=== PATIENT | male | born 1940 | race African-American/Black ===

== ENCOUNTER 2020-03-21 14:12 | Inpatient (IN) | payer OTHER ==
[2020-03-21] MEDS ORDERED: SODIUM CHLORIDE 1,000 ML IV SCH (14:45)
[2020-03-21 15:04] LABS: BASO % 0.5 % (0-2.0); EOS % 0.6 % (0-4.5); HEMATOCRIT 44.1 % (35.4-49); HEMOGLOBIN 14.8 GM/dL (11.7-16.9); MCH 30.8 pg (25.7-33.7); MCHC 33.5 g/dl (32.0-35.9); MEAN CELL VOLUME 91.9 fl (80-96); MEAN PLT VOLUME 8.7 fl (7.5-11.1); MONO % 5.2 % (3.8-10.2); NEUT % 79.7 % (42.8-82.8); PLATELET COUNT 384 K/MM3 (134-434); RDW 15.3 % (11.9-15.9)
[2020-03-21 15:11] LABS: INR 1.16 (0.83-1.09)
[2020-03-21 15:13] LABS: ACTIVATED PTT 30.4 SECONDS (25.2-36.5)
[2020-03-21 15:22] LABS: POTASSIUM 4.6 mmol/L (3.5-5.1)
[2020-03-21] MEDS ORDERED: levETIRAcetam 500 MG/5 ML INJECTION VIAL IVPB ONE ×2 (15:28→15:36)
[2020-03-21 15:29] LABS: CALCIUM 9.7 mg/dL (8.5-10.1); CHOLESTEROL 146 mg/dL (50-200); CREATININE 3.2 mg/dL (0.55-1.3)
[2020-03-21 15:30] LABS: ALBUMIN 3.4 g/dl (3.4-5.0); TRIGLYCERIDES 112 mg/dL (0-150)
[2020-03-21 15:31] LABS: BILIRUBIN,TOTAL 0.8 mg/dL (0.2-1); LDL CHOLESTEROL (ONLY SJRH) 71 mg/dL (5-100); TOT PROT 8.3 g/dl (6.4-8.2)
[2020-03-21 15:33] LABS: HDL CHOLESTEROL 56 mg/dL (40-60)
[2020-03-21 15:35] VITALS: BMI 32.3
[2020-03-21 16:10] LABS: PHOSPHOROUS 5.4 mg/dL (2.5-4.9)
[2020-03-21 16:16] LABS: BLOOD UREA NITROGEN 90.6 mg/dL (7-18)
[2020-03-21 17:27] LABS: URINE APPEARANCE Clear; URINE BILIRUBIN 1+ (NEGATIVE); URINE COLOR Yellow; URINE GLUCOSE (UA) Negative (NEGATIVE); URINE KETONE Negative (NEGATIVE); URINE LEUK ESTERASE Negative (NEGATIVE); URINE NITRITE Negative (NEGATIVE); URINE PROTEIN Trace (NEGATIVE)
[2020-03-21] MEDS: SODIUM CHLORIDE 1,000 ML IV SCH (18:00)
[2020-03-21] MEDS: HEPARIN NA (PORCINE) 5,000 UNITS/ML 1ML VIAL SQ SCH (23:38)
[2020-03-21] MEDS: levETIRAcetam 500 MG/5 ML INJECTION VIAL IVPB SCH (23:38)
[2020-03-21] MEDS: LABETALOL HCL 100 MG TABLET (FP) PO SCH (23:39)
[2020-03-21] MEDS: ATORVASTATIN CA 80 MG TABLET (FP) PO SCH (23:39)
[2020-03-22 08:16] LABS: BASO % 0.6 % (0-2.0); EOS % 1.1 % (0-4.5); HEMATOCRIT 40.7 % (35.4-49); HEMOGLOBIN 13.2 GM/dL (11.7-16.9); LYMPH % 17.3 % (8-40); MCH 30.1 pg (25.7-33.7); MCHC 32.5 g/dl (32.0-35.9); MEAN CELL VOLUME 92.6 fl (80-96); MEAN PLT VOLUME 8.9 fl (7.5-11.1); PLATELET COUNT 352 K/MM3 (134-434); RBC 4.39 M/mm3 (4.00-5.60); RDW 15.2 % (11.9-15.9); WHITE BLOOD COUNT 7.5 K/mm3 (4.0-10.0)
[2020-03-22 08:34] LABS: POTASSIUM 4.5 mmol/L (3.5-5.1)
[2020-03-22 08:42] LABS: CALCIUM 8.9 mg/dL (8.5-10.1)
[2020-03-22 08:43] LABS: BLOOD UREA NITROGEN 76.5 mg/dL (7-18); MAGNESIUM 2.9 mg/dL (1.8-2.4)
[2020-03-22 08:46] LABS: BILIRUBIN,TOTAL 0.5 mg/dL (0.2-1); CREATININE 2.6 mg/dL (0.55-1.3); PHOSPHOROUS 4.5 mg/dL (2.5-4.9); TOT PROT 7.2 g/dl (6.4-8.2)
[2020-03-22] MEDS: HEPARIN NA (PORCINE) 5,000 UNITS/ML 1ML VIAL SQ SCH ×2 (10:11→22:24)
[2020-03-22] MEDS: levETIRAcetam 500 MG/5 ML INJECTION VIAL IVPB SCH ×2 (10:11→22:24)
[2020-03-22] MEDS: TAMSULOSIN HCL 0.4 MG CAP PO SCH (10:12)
[2020-03-22] MEDS: amLODIPine BESYLATE 10 MG TABLET (FP) PO SCH (10:12)
[2020-03-22] MEDS: LABETALOL HCL 100 MG TABLET (FP) PO SCH ×2 (10:12→22:10)
[2020-03-22] MEDS: CLOPIDOGREL BISULFATE 75 MG TABLET (FP) PO SCH (10:12)
[2020-03-22] MEDS: SODIUM CHLORIDE 1,000 ML IV SCH ×2 (14:33→22:10)
[2020-03-22] MEDS: ATORVASTATIN CA 80 MG TABLET (FP) PO SCH (22:10)
[2020-03-23] MEDS: SODIUM CHLORIDE 1,000 ML IV SCH (04:09)
[2020-03-23] MEDS: TAMSULOSIN HCL 0.4 MG CAP PO SCH (08:30)
[2020-03-23] MEDS: amLODIPine BESYLATE 10 MG TABLET (FP) PO SCH (09:38)
[2020-03-23] MEDS: CLOPIDOGREL BISULFATE 75 MG TABLET (FP) PO SCH (09:38)
[2020-03-23] MEDS: LABETALOL HCL 100 MG TABLET (FP) PO SCH ×2 (09:38→21:31)
[2020-03-23] MEDS: HEPARIN NA (PORCINE) 5,000 UNITS/ML 1ML VIAL SQ SCH ×2 (09:49→21:39)
[2020-03-23] MEDS: levETIRAcetam 500 MG/5 ML INJECTION VIAL IVPB SCH ×2 (09:49→21:39)
[2020-03-23 11:32] LABS: BASO % 0.5 % (0-2.0); EOS % 0.8 % (0-4.5); HEMATOCRIT 40.8 % (35.4-49); HEMOGLOBIN 13.2 GM/dL (11.7-16.9); LYMPH % 11.2 % (8-40); MCH 29.7 pg (25.7-33.7); MCHC 32.3 g/dl (32.0-35.9); MEAN CELL VOLUME 92.1 fl (80-96); MONO % 6.5 % (3.8-10.2); PLATELET COUNT 347 K/MM3 (134-434); RBC 4.43 M/mm3 (4.00-5.60); RDW 15.5 % (11.9-15.9); WHITE BLOOD COUNT 8.8 K/mm3 (4.0-10.0)
[2020-03-23 11:48] LABS: POTASSIUM 4.2 mmol/L (3.5-5.1)
[2020-03-23 11:49] LABS: ALBUMIN 2.9 g/dl (3.4-5.0); BLOOD UREA NITROGEN 53.7 mg/dL (7-18); CALCIUM 8.6 mg/dL (8.5-10.1)
[2020-03-23 11:53] LABS: CREATININE 1.9 mg/dL (0.55-1.3)
[2020-03-23 11:54] LABS: BILIRUBIN,TOTAL 0.6 mg/dL (0.2-1); TOT PROT 6.8 g/dl (6.4-8.2)
[2020-03-23] MEDS: DEXTROSE 5%-1/3 NS - 500 ML IV SCH (14:30)
[2020-03-23] MEDS: ATORVASTATIN CA 80 MG TABLET (FP) PO SCH (21:31)
[2020-03-24] MEDS: TAMSULOSIN HCL 0.4 MG CAP PO SCH ×2 (07:54→07:57)
[2020-03-24 07:57] LABS: BASO % 1.1 % (0-2.0); EOS % 1.2 % (0-4.5); HEMATOCRIT 38.9 % (35.4-49); HEMOGLOBIN 12.5 GM/dL (11.7-16.9); LYMPH % 14.7 % (8-40); MCH 29.8 pg (25.7-33.7); MCHC 32.2 g/dl (32.0-35.9); MEAN CELL VOLUME 92.4 fl (80-96); MEAN PLT VOLUME 9.1 fl (7.5-11.1); PLATELET COUNT 321 K/MM3 (134-434); RBC 4.21 M/mm3 (4.00-5.60); RDW 15.5 % (11.9-15.9); WHITE BLOOD COUNT 9.2 K/mm3 (4.0-10.0)
[2020-03-24 08:08] LABS: POTASSIUM 3.8 mmol/L (3.5-5.1)
[2020-03-24 08:13] LABS: ALBUMIN 2.9 g/dl (3.4-5.0); BLOOD UREA NITROGEN 36.9 mg/dL (7-18); CALCIUM 8.6 mg/dL (8.5-10.1)
[2020-03-24 08:17] LABS: CREATININE 1.8 mg/dL (0.55-1.3)
[2020-03-24 08:18] LABS: BILIRUBIN,TOTAL 0.8 mg/dL (0.2-1); TOT PROT 7.2 g/dl (6.4-8.2)
[2020-03-24] MEDS: HEPARIN NA (PORCINE) 5,000 UNITS/ML 1ML VIAL SQ SCH ×2 (09:11→22:51)
[2020-03-24] MEDS: levETIRAcetam 500 MG/5 ML INJECTION VIAL IVPB SCH ×2 (09:12→22:51)
[2020-03-24] MEDS: amLODIPine BESYLATE 10 MG TABLET (FP) PO SCH ×2 (09:13→14:38)
[2020-03-24] MEDS: LABETALOL HCL 100 MG TABLET (FP) PO SCH ×3 (09:13→22:47)
[2020-03-24] MEDS: CLOPIDOGREL BISULFATE 75 MG TABLET (FP) PO SCH ×2 (09:13→14:38)
[2020-03-24] MEDS ORDERED: PT OWN MED DRAWER 7, Y5N ONE (10:08)
[2020-03-24] MEDS: DEXTROSE 5%-1/3 NS - 500 ML IV SCH (14:36)
[2020-03-24] MEDS ORDERED: ACETAMINOPHEN 1000 MG/100 ML VIAL (NON FORMULARY) IVPB PRN (22:26)
[2020-03-24] MEDS ORDERED: VANCOMYCIN HCL 1,250 MG in DEXTROSE 5%-WATER - 250 ML IVPB ONE (22:45)
[2020-03-24] MEDS: ATORVASTATIN CA 80 MG TABLET (FP) PO SCH (22:46)
[2020-03-24] MEDS ORDERED: DEXTROSE 5%-WATER 100 ML IVPB ONE (22:48)
[2020-03-24] MEDS ORDERED: PIPERACILLIN/TAZOBACTAM 4.5 GM VIAL IVPB ONE (22:48)
[2020-03-25] MEDS: PIPERACILLIN/TAZOB 4.5 GM 4.5 GM in DEXTROSE 5%-WATER 100 ML IVPB SCH ×2 (01:06→06:41)
[2020-03-25 01:53] LABS: BASO % 0.3 % (0-2.0); EOS % 0.6 % (0-4.5); HEMATOCRIT 40.9 % (35.4-49); HEMOGLOBIN 13.3 GM/dL (11.7-16.9); LYMPH % 17.8 % (8-40); MCH 29.7 pg (25.7-33.7); MCHC 32.4 g/dl (32.0-35.9); MEAN CELL VOLUME 91.5 fl (80-96); MONO % 7.5 % (3.8-10.2); NEUT % 73.8 % (42.8-82.8); PLATELET COUNT 305 K/MM3 (134-434); RBC 4.47 M/mm3 (4.00-5.60); RDW 15.3 % (11.9-15.9); WHITE BLOOD COUNT 8.3 K/mm3 (4.0-10.0)
[2020-03-25 02:28] LABS: EPI CELLS 11 /uL (0-25.1); HYALINE CASTS 29 /uL (0-3.1); PH,URINE 5.5 (5.0-8.0); URINE APPEARANCE TURBID; URINE BACTERIA 274 /uL (0-1359); URINE BILIRUBIN NEGATIVE (NEGATIVE); URINE COLOR YELLOW; URINE GLUCOSE (UA) NEGATIVE (NEGATIVE); URINE KETONE NEGATIVE (NEGATIVE); URINE LEUK ESTERASE 1+ (NEGATIVE); URINE NITRITE NEGATIVE (NEGATIVE); URINE PROTEIN 3+ (NEGATIVE); URINE RBC 16 /uL (0-23.9); URINE WBC 389 /uL (0-25.8)
[2020-03-25] MEDS ORDERED: SODIUM CHLORIDE 0.9% 500 ML INFUS.BAG IV ONE (03:29)
[2020-03-25] MEDS ORDERED: PIPERACILLIN/TAZOBACTAM 4.5 GM VIAL IVPB ONE (06:28)
[2020-03-25] MEDS ORDERED: DEXTROSE 5%-WATER 100 ML IVPB ONE (06:29)
[2020-03-25 08:33] LABS: BASO % 0.5 % (0-2.0); EOS % 0.6 % (0-4.5); HEMATOCRIT 36.7 % (35.4-49); HEMOGLOBIN 12.2 GM/dL (11.7-16.9); LYMPH % 20.2 % (8-40); MCH 30.2 pg (25.7-33.7); MCHC 33.1 g/dl (32.0-35.9); MEAN CELL VOLUME 91.1 fl (80-96); MEAN PLT VOLUME 9.3 fl (7.5-11.1); MONO % 9.6 % (3.8-10.2); NEUT % 69.1 % (42.8-82.8); PLATELET COUNT 264 K/MM3 (134-434); RBC 4.03 M/mm3 (4.00-5.60); RDW 15.6 % (11.9-15.9)
[2020-03-25 08:49] LABS: POTASSIUM 3.8 mmol/L (3.5-5.1)
[2020-03-25 08:59] LABS: CALCIUM 7.9 mg/dL (8.5-10.1)
[2020-03-25 09:00] LABS: ALBUMIN 2.5 g/dl (3.4-5.0); BLOOD UREA NITROGEN 29.5 mg/dL (7-18)
[2020-03-25 09:03] LABS: CREATININE 2.2 mg/dL (0.55-1.3)
[2020-03-25 09:04] LABS: BILIRUBIN,TOTAL 0.9 mg/dL (0.2-1)
[2020-03-25 09:07] LABS: TOT PROT 6.2 g/dl (6.4-8.2)
[2020-03-25] MEDS: HEPARIN NA (PORCINE) 5,000 UNITS/ML 1ML VIAL SQ SCH ×2 (10:09→22:23)
[2020-03-25] MEDS: levETIRAcetam 500 MG/5 ML INJECTION VIAL IVPB SCH ×2 (10:09→22:23)
[2020-03-25] MEDS: amLODIPine BESYLATE 10 MG TABLET (FP) PO SCH (10:48)
[2020-03-25] MEDS: LABETALOL HCL 100 MG TABLET (FP) PO SCH ×2 (10:48→22:17)
[2020-03-25] MEDS: TAMSULOSIN HCL 0.4 MG CAP PO SCH (10:48)
[2020-03-25] MEDS: CLOPIDOGREL BISULFATE 75 MG TABLET (FP) PO SCH (10:49)
[2020-03-25] MEDS: DEXTROSE 5%-1/3 NS - 500 ML IV SCH (13:48)
[2020-03-25] MEDS ORDERED: PIPERACILLIN/TAZOBACTAM 3.375 GM VIAL IVPB ONE (17:42)
[2020-03-25] MEDS ORDERED: DEXTROSE 5%-WATER - 50 ML IVPB ONE (17:42)
[2020-03-25] MEDS: PIPERACILLIN/TAZOB 3.375 GM 3.375 GM in DEXTROSE 5%-WATER - 50 ML IVPB SCH (17:49)
[2020-03-25] MEDS: ATORVASTATIN CA 80 MG TABLET (FP) PO SCH (22:17)
[2020-03-25] MEDS ORDERED: VANCOMYCIN/WATER 1,250 MG/250 ML BAG IVPB SCH (22:30)
[2020-03-25] MEDS: VALPROATE SODIUM 500 MG/5 ML VIAL IVPB SCH (22:39)
[2020-03-26] MEDS ORDERED: PIPERACILLIN/TAZOBACTAM 3.375 GM VIAL IVPB ONE ×3 (01:41→17:21)
[2020-03-26] MEDS ORDERED: DEXTROSE 5%-WATER - 50 ML IVPB ONE ×3 (01:41→17:21)
[2020-03-26] MEDS: DEXTROSE 5%-1/3 NS - 500 ML IV SCH ×2 (02:13→15:29)
[2020-03-26] MEDS: PIPERACILLIN/TAZOB 3.375 GM 3.375 GM in DEXTROSE 5%-WATER - 50 ML IVPB SCH ×3 (02:14→17:25)
[2020-03-26] MEDS: PIPERACILLIN/TAZOB 4.5 GM 4.5 GM in DEXTROSE 5%-WATER 100 ML IVPB SCH (07:22)
[2020-03-26 08:30] LABS: BASO % 0.4 % (0-2.0); EOS % 1.4 % (0-4.5); HEMATOCRIT 37.1 % (35.4-49); HEMOGLOBIN 12.1 GM/dL (11.7-16.9); LYMPH % 19.6 % (8-40); MCH 29.9 pg (25.7-33.7); MCHC 32.6 g/dl (32.0-35.9); MEAN CELL VOLUME 91.8 fl (80-96); MEAN PLT VOLUME 10.2 fl (7.5-11.1); MONO % 7.2 % (3.8-10.2); NEUT % 71.4 % (42.8-82.8); PLATELET COUNT 229 K/MM3 (134-434); RBC 4.04 M/mm3 (4.00-5.60); RDW 15.2 % (11.9-15.9); WHITE BLOOD COUNT 7.6 K/mm3 (4.0-10.0)
[2020-03-26 08:48] LABS: POTASSIUM 3.6 mmol/L (3.5-5.1)
[2020-03-26 08:51] LABS: ALBUMIN 2.3 g/dl (3.4-5.0); BLOOD UREA NITROGEN 21.5 mg/dL (7-18)
[2020-03-26 08:52] LABS: CALCIUM 8.1 mg/dL (8.5-10.1)
[2020-03-26 08:56] LABS: BILIRUBIN,TOTAL 1.1 mg/dL (0.2-1); TOT PROT 6.2 g/dl (6.4-8.2)
[2020-03-26] MEDS ORDERED: PT OWN MED DRAWER 7, Y5N ONE (09:36)
[2020-03-26] MEDS: TAMSULOSIN HCL 0.4 MG CAP PO SCH (09:40)
[2020-03-26] MEDS: levETIRAcetam 500 MG/5 ML INJECTION VIAL IVPB SCH ×2 (09:47→22:50)
[2020-03-26] MEDS: HEPARIN NA (PORCINE) 5,000 UNITS/ML 1ML VIAL SQ SCH ×2 (09:49→22:50)
[2020-03-26] MEDS: VALPROATE SODIUM 500 MG/5 ML VIAL IVPB SCH (09:50)
[2020-03-26] MEDS: amLODIPine BESYLATE 10 MG TABLET (FP) PO SCH (09:53)
[2020-03-26] MEDS: LABETALOL HCL 100 MG TABLET (FP) PO SCH ×2 (09:53→22:50)
[2020-03-26] MEDS: CLOPIDOGREL BISULFATE 75 MG TABLET (FP) PO SCH (09:53)
[2020-03-26] MEDS: ACETAMINOPHEN 325 MG TABLET (FP) PO PRN (11:57)
[2020-03-26] MEDS: ASPIRIN 81 MG CHEWABLE TABLETS PO SCH (17:27)
[2020-03-26] MEDS: ATORVASTATIN CA 80 MG TABLET (FP) PO SCH (22:50)
[2020-03-27] MEDS: VALPROATE SODIUM 500 MG/5 ML VIAL IVPB SCH ×3 (01:07→23:22)
[2020-03-27] MEDS ORDERED: PIPERACILLIN/TAZOBACTAM 3.375 GM VIAL IVPB ONE ×3 (01:08→17:35)
[2020-03-27] MEDS ORDERED: DEXTROSE 5%-WATER - 50 ML IVPB ONE ×3 (01:09→17:35)
[2020-03-27] MEDS: PIPERACILLIN/TAZOB 3.375 GM 3.375 GM in DEXTROSE 5%-WATER - 50 ML IVPB SCH ×3 (01:50→17:37)
[2020-03-27] MEDS: TAMSULOSIN HCL 0.4 MG CAP PO SCH (09:14)
[2020-03-27] MEDS: ASPIRIN 81 MG CHEWABLE TABLETS PO SCH (10:59)
[2020-03-27] MEDS: LABETALOL HCL 100 MG TABLET (FP) PO SCH ×2 (10:59→23:26)
[2020-03-27] MEDS: CLOPIDOGREL BISULFATE 75 MG TABLET (FP) PO SCH (10:59)
[2020-03-27] MEDS: levETIRAcetam 500 MG/5 ML INJECTION VIAL IVPB SCH ×2 (10:59→23:13)
[2020-03-27] MEDS: HEPARIN NA (PORCINE) 5,000 UNITS/ML 1ML VIAL SQ SCH ×2 (11:00→23:13)
[2020-03-27] MEDS: amLODIPine BESYLATE 10 MG TABLET (FP) PO SCH (11:00)
[2020-03-27 13:07] LABS: BASO % 0.3 % (0-2.0); EOS % 2.8 % (0-4.5); HEMATOCRIT 32.4 % (35.4-49); HEMOGLOBIN 10.6 GM/dL (11.7-16.9); LYMPH % 15.4 % (8-40); MCH 29.7 pg (25.7-33.7); MCHC 32.8 g/dl (32.0-35.9); MEAN CELL VOLUME 90.7 fl (80-96); MEAN PLT VOLUME 9.9 fl (7.5-11.1); MONO % 6.5 % (3.8-10.2); PLATELET COUNT 202 K/MM3 (134-434); RBC 3.57 M/mm3 (4.00-5.60); RDW 15.1 % (11.9-15.9); WHITE BLOOD COUNT 7.1 K/mm3 (4.0-10.0)
[2020-03-27 13:22] LABS: POTASSIUM 3.1 mmol/L (3.5-5.1)
[2020-03-27 13:25] LABS: BLOOD UREA NITROGEN 16.3 mg/dL (7-18); CALCIUM 7.7 mg/dL (8.5-10.1)
[2020-03-27 13:28] LABS: CREATININE 1.4 mg/dL (0.55-1.3)
[2020-03-27 13:30] LABS: BILIRUBIN,TOTAL 0.8 mg/dL (0.2-1); TOT PROT 5.7 g/dl (6.4-8.2)
[2020-03-27] MEDS: DEXTROSE 5%-1/3 NS - 500 ML IV SCH (17:37)
[2020-03-27] MEDS: ACETAMINOPHEN 325 MG TABLET (FP) PO PRN (23:26)
[2020-03-27] MEDS: ATORVASTATIN CA 80 MG TABLET (FP) PO SCH (23:26)
[2020-03-28] MEDS ORDERED: PIPERACILLIN/TAZOBACTAM 3.375 GM VIAL IVPB ONE ×3 (00:58→18:03)
[2020-03-28] MEDS ORDERED: DEXTROSE 5%-WATER - 50 ML IVPB ONE ×3 (00:59→18:03)
[2020-03-28] MEDS: PIPERACILLIN/TAZOB 3.375 GM 3.375 GM in DEXTROSE 5%-WATER - 50 ML IVPB SCH ×3 (01:01→18:18)
[2020-03-28 06:56] LABS: BASO % 0.5 % (0-2.0); HEMATOCRIT 31.6 % (35.4-49); HEMOGLOBIN 10.6 GM/dL (11.7-16.9); LYMPH % 18.9 % (8-40); MCHC 33.7 g/dl (32.0-35.9); MEAN CELL VOLUME 89.1 fl (80-96); MEAN PLT VOLUME 9.7 fl (7.5-11.1); MONO % 8.1 % (3.8-10.2); NEUT % 68.5 % (42.8-82.8); PLATELET COUNT 192 K/MM3 (134-434); RBC 3.54 M/mm3 (4.00-5.60); WHITE BLOOD COUNT 5.4 K/mm3 (4.0-10.0)
[2020-03-28 07:17] LABS: ALBUMIN 1.9 g/dl (3.4-5.0); BLOOD UREA NITROGEN 11.9 mg/dL (7-18); CALCIUM 7.5 mg/dL (8.5-10.1)
[2020-03-28 07:19] LABS: CREATININE 1.5 mg/dL (0.55-1.3)
[2020-03-28 07:22] LABS: BILIRUBIN,TOTAL 0.6 mg/dL (0.2-1); TOT PROT 5.4 g/dl (6.4-8.2)
[2020-03-28 07:38] LABS: POTASSIUM 2.9 mmol/L (3.5-5.1)
[2020-03-28] MEDS: levETIRAcetam 500 MG/5 ML INJECTION VIAL IVPB SCH ×2 (09:53→21:13)
[2020-03-28] MEDS: amLODIPine BESYLATE 10 MG TABLET (FP) PO SCH (09:59)
[2020-03-28] MEDS: HEPARIN NA (PORCINE) 5,000 UNITS/ML 1ML VIAL SQ SCH ×2 (09:59→21:51)
[2020-03-28] MEDS: VALPROATE SODIUM 500 MG/5 ML VIAL IVPB SCH ×2 (09:59→21:16)
[2020-03-28] MEDS: LABETALOL HCL 100 MG TABLET (FP) PO SCH ×2 (09:59→21:13)
[2020-03-28] MEDS: CLOPIDOGREL BISULFATE 75 MG TABLET (FP) PO SCH (09:59)
[2020-03-28] MEDS: ASPIRIN 81 MG CHEWABLE TABLETS PO SCH (10:00)
[2020-03-28] MEDS: KCL 10 MEQ IVPB 10 MEQ/100 ML INFUS.BAG IVPB SCH ×3 (10:01→14:04)
[2020-03-28] MEDS: TAMSULOSIN HCL 0.4 MG CAP PO SCH (10:01)
[2020-03-28] MEDS: ACETAMINOPHEN 325 MG TABLET (FP) PO PRN (21:13)
[2020-03-28] MEDS: ATORVASTATIN CA 80 MG TABLET (FP) PO SCH (21:13)
[2020-03-29] MEDS ORDERED: DEXTROSE 5%-WATER - 50 ML IVPB ONE ×3 (01:26→17:02)
[2020-03-29] MEDS ORDERED: PIPERACILLIN/TAZOBACTAM 3.375 GM VIAL IVPB ONE ×3 (01:26→17:02)
[2020-03-29] MEDS: PIPERACILLIN/TAZOB 3.375 GM 3.375 GM in DEXTROSE 5%-WATER - 50 ML IVPB SCH ×3 (01:30→17:05)
[2020-03-29 07:03] LABS: BASO % 0.6 % (0-2.0); EOS % 3.2 % (0-4.5); HEMATOCRIT 30.8 % (35.4-49); HEMOGLOBIN 10.4 GM/dL (11.7-16.9); LYMPH % 17.6 % (8-40); MCHC 33.8 g/dl (32.0-35.9); MEAN CELL VOLUME 88.8 fl (80-96); MONO % 10.3 % (3.8-10.2); NEUT % 68.3 % (42.8-82.8); PLATELET COUNT 187 K/MM3 (134-434); RBC 3.47 M/mm3 (4.00-5.60); RDW 15.3 % (11.9-15.9); WHITE BLOOD COUNT 5.4 K/mm3 (4.0-10.0)
[2020-03-29 07:15] LABS: POTASSIUM 3.2 mmol/L (3.5-5.1)
[2020-03-29 07:24] LABS: ALBUMIN 2.1 g/dl (3.4-5.0); BLOOD UREA NITROGEN 16.2 mg/dL (7-18); CALCIUM 7.9 mg/dL (8.5-10.1)
[2020-03-29 07:26] LABS: CREATININE 1.4 mg/dL (0.55-1.3)
[2020-03-29 07:27] LABS: BILIRUBIN,TOTAL 0.4 mg/dL (0.2-1)
[2020-03-29 07:28] LABS: TOT PROT 5.6 g/dl (6.4-8.2)
[2020-03-29] MEDS: TAMSULOSIN HCL 0.4 MG CAP PO SCH (08:29)
[2020-03-29] MEDS: POTASSIUM CHLORIDE ORAL LIQUID 20 MEQ/15 ML PO SCH ×2 (10:52→21:34)
[2020-03-29] MEDS: levETIRAcetam 500 MG/5 ML INJECTION VIAL IVPB SCH ×2 (10:55→21:20)
[2020-03-29] MEDS: HEPARIN NA (PORCINE) 5,000 UNITS/ML 1ML VIAL SQ SCH ×2 (10:58→21:20)
[2020-03-29] MEDS: LABETALOL HCL 100 MG TABLET (FP) PO SCH ×2 (10:58→21:34)
[2020-03-29] MEDS: amLODIPine BESYLATE 10 MG TABLET (FP) PO SCH (10:58)
[2020-03-29] MEDS: ASPIRIN 81 MG CHEWABLE TABLETS PO SCH (10:59)
[2020-03-29] MEDS: CLOPIDOGREL BISULFATE 75 MG TABLET (FP) PO SCH (10:59)
[2020-03-29] MEDS: VALPROATE SODIUM 500 MG/5 ML VIAL IVPB SCH ×2 (10:59→21:39)
[2020-03-29] MEDS: ATORVASTATIN CA 80 MG TABLET (FP) PO SCH (21:34)
[2020-03-30] MEDS ORDERED: PIPERACILLIN/TAZOBACTAM 3.375 GM VIAL IVPB ONE ×3 (01:41→16:14)
[2020-03-30] MEDS ORDERED: DEXTROSE 5%-WATER - 50 ML IVPB ONE ×3 (01:41→16:14)
[2020-03-30] MEDS: PIPERACILLIN/TAZOB 3.375 GM 3.375 GM in DEXTROSE 5%-WATER - 50 ML IVPB SCH ×3 (01:52→17:51)
[2020-03-30] MEDS ORDERED: ACETAMINOPHEN 650 MG/20.3 ML ORAL SOLUTION (CUPS) NGT ONE (06:00)
[2020-03-30 07:24] LABS: BASO % 0.5 % (0-2.0); EOS % 1.2 % (0-4.5); HEMATOCRIT 30.3 % (35.4-49); HEMOGLOBIN 10.3 GM/dL (11.7-16.9); LYMPH % 17.3 % (8-40); MCH 30.1 pg (25.7-33.7); MCHC 33.8 g/dl (32.0-35.9); MEAN PLT VOLUME 10.1 fl (7.5-11.1); MONO % 9.3 % (3.8-10.2); NEUT % 71.7 % (42.8-82.8); PLATELET COUNT 211 K/MM3 (134-434); RBC 3.41 M/mm3 (4.00-5.60); RDW 15.4 % (11.9-15.9); WHITE BLOOD COUNT 6.8 K/mm3 (4.0-10.0)
[2020-03-30 08:08] LABS: CALCIUM 8.1 mg/dL (8.5-10.1)
[2020-03-30 08:09] LABS: ALBUMIN 2.1 g/dl (3.4-5.0); BLOOD UREA NITROGEN 18.6 mg/dL (7-18)
[2020-03-30 08:12] LABS: CREATININE 1.6 mg/dL (0.55-1.3)
[2020-03-30 08:14] LABS: BILIRUBIN,TOTAL 0.3 mg/dL (0.2-1); TOT PROT 5.9 g/dl (6.4-8.2)
[2020-03-30] MEDS: TAMSULOSIN HCL 0.4 MG CAP PO SCH ×2 (08:30→10:03)
[2020-03-30] MEDS ORDERED: PT OWN MED DRAWER 7, Y5N ONE ×2 (09:46→10:24)
[2020-03-30] MEDS: ASPIRIN 81 MG CHEWABLE TABLETS PO SCH (10:03)
[2020-03-30] MEDS: levETIRAcetam 500 MG/5 ML INJECTION VIAL IVPB SCH ×2 (10:03→21:18)
[2020-03-30] MEDS: CLOPIDOGREL BISULFATE 75 MG TABLET (FP) PO SCH (10:03)
[2020-03-30] MEDS: amLODIPine BESYLATE 10 MG TABLET (FP) PO SCH (10:04)
[2020-03-30] MEDS: LABETALOL HCL 100 MG TABLET (FP) PO SCH (10:04)
[2020-03-30] MEDS: HEPARIN NA (PORCINE) 5,000 UNITS/ML 1ML VIAL SQ SCH ×2 (10:04→21:18)
[2020-03-30] MEDS: ACETAMINOPHEN 325 MG TABLET (FP) NR PRN (12:00)
[2020-03-30] MEDS: VALPROATE SODIUM 500 MG/5 ML VIAL IVPB SCH (12:28)
[2020-03-30] MEDS ORDERED: VALPROATE SODIUM 250 MG/5 ML UNIT DOSE CUP GT SCH (12:30)
[2020-03-30] MEDS: ATORVASTATIN CA 80 MG TABLET (FP) NGT SCH (21:18)
[2020-03-30] MEDS: LABETALOL HCL 100 MG TABLET (FP) NGT SCH (21:19)
[2020-03-31] MEDS ORDERED: DEXTROSE 5%-WATER - 50 ML IVPB ONE ×3 (01:55→17:34)
[2020-03-31] MEDS ORDERED: PIPERACILLIN/TAZOBACTAM 3.375 GM VIAL IVPB ONE ×3 (01:55→17:34)
[2020-03-31] MEDS: PIPERACILLIN/TAZOB 3.375 GM 3.375 GM in DEXTROSE 5%-WATER - 50 ML IVPB SCH ×3 (02:01→18:12)
[2020-03-31 07:22] LABS: HEMATOCRIT 25.8 % (35.4-49); HEMOGLOBIN 9.4 GM/dL (11.7-16.9); MCH 32.3 pg (25.7-33.7); MCHC 36.6 g/dl (32.0-35.9); MEAN CELL VOLUME 88.4 fl (80-96); MEAN PLT VOLUME 10.1 fl (7.5-11.1); PLATELET COUNT 194 K/MM3 (134-434); RBC 2.91 M/mm3 (4.00-5.60); RDW 15.4 % (11.9-15.9); WHITE BLOOD COUNT 7.1 K/mm3 (4.0-10.0)
[2020-03-31 07:32] LABS: POTASSIUM 4.2 mmol/L (3.5-5.1)
[2020-03-31 07:37] LABS: ALBUMIN 2.1 g/dl (3.4-5.0); CALCIUM 8.2 mg/dL (8.5-10.1)
[2020-03-31 07:38] LABS: BLOOD UREA NITROGEN 20.9 mg/dL (7-18)
[2020-03-31 07:40] LABS: CREATININE 1.4 mg/dL (0.55-1.3)
[2020-03-31 07:41] LABS: BILIRUBIN,TOTAL 0.4 mg/dL (0.2-1); TOT PROT 5.6 g/dl (6.4-8.2)
[2020-03-31] MEDS ORDERED: PT OWN MED DRAWER 7, Y5N ONE (09:10)
[2020-03-31] MEDS: ACETAMINOPHEN 325 MG TABLET (FP) NR PRN (09:15)
[2020-03-31] MEDS: levETIRAcetam 500 MG/5 ML INJECTION VIAL IVPB SCH ×2 (09:16→21:25)
[2020-03-31] MEDS: ASPIRIN 81 MG CHEWABLE TABLETS NGT SCH (09:16)
[2020-03-31] MEDS: HEPARIN NA (PORCINE) 5,000 UNITS/ML 1ML VIAL SQ SCH ×2 (09:16→21:25)
[2020-03-31] MEDS: amLODIPine BESYLATE 10 MG TABLET (FP) NGT SCH (09:16)
[2020-03-31] MEDS: CLOPIDOGREL BISULFATE 75 MG TABLET (FP) NGT SCH (09:16)
[2020-03-31] MEDS: LABETALOL HCL 100 MG TABLET (FP) NGT SCH ×2 (09:16→21:24)
[2020-03-31] MEDS: ATORVASTATIN CA 80 MG TABLET (FP) NGT SCH (21:24)
[2020-04-01] MEDS ORDERED: PIPERACILLIN/TAZOBACTAM 3.375 GM VIAL IVPB ONE ×3 (02:43→17:30)
[2020-04-01] MEDS ORDERED: DEXTROSE 5%-WATER - 50 ML IVPB ONE ×3 (02:43→17:30)
[2020-04-01] MEDS: PIPERACILLIN/TAZOB 3.375 GM 3.375 GM in DEXTROSE 5%-WATER - 50 ML IVPB SCH ×4 (02:48→18:41)
[2020-04-01] MEDS: ACETAMINOPHEN 325 MG TABLET (FP) NR PRN ×2 (06:39→11:02)
[2020-04-01 08:13] LABS: POTASSIUM 4.2 mmol/L (3.5-5.1)
[2020-04-01 08:22] LABS: HEMATOCRIT 24.5 % (35.4-49); HEMOGLOBIN 8.3 GM/dL (11.7-16.9); MCH 30.1 pg (25.7-33.7); MCHC 33.6 g/dl (32.0-35.9); MEAN CELL VOLUME 89.6 fl (80-96); MEAN PLT VOLUME 10.1 fl (7.5-11.1); PLATELET COUNT 198 K/MM3 (134-434); RBC 2.74 M/mm3 (4.00-5.60); RDW 15.5 % (11.9-15.9); WHITE BLOOD COUNT 7.3 K/mm3 (4.0-10.0)
[2020-04-01 08:24] LABS: ALBUMIN 1.9 g/dl (3.4-5.0); BLOOD UREA NITROGEN 24.4 mg/dL (7-18); CALCIUM 8.3 mg/dL (8.5-10.1)
[2020-04-01 08:27] LABS: CREATININE 1.4 mg/dL (0.55-1.3)
[2020-04-01 08:29] LABS: BILIRUBIN,TOTAL 0.3 mg/dL (0.2-1); TOT PROT 5.6 g/dl (6.4-8.2)
[2020-04-01] MEDS: HEPARIN NA (PORCINE) 5,000 UNITS/ML 1ML VIAL SQ SCH ×2 (10:27→22:57)
[2020-04-01] MEDS: amLODIPine BESYLATE 10 MG TABLET (FP) NGT SCH (10:28)
[2020-04-01] MEDS: LABETALOL HCL 100 MG TABLET (FP) NGT SCH ×2 (10:28→22:56)
[2020-04-01] MEDS: CLOPIDOGREL BISULFATE 75 MG TABLET (FP) NGT SCH (10:28)
[2020-04-01] MEDS: ASPIRIN 81 MG CHEWABLE TABLETS NGT SCH (10:28)
[2020-04-01] MEDS: levETIRAcetam 500 MG/5 ML INJECTION VIAL IVPB SCH (10:28)
[2020-04-01] MEDS ORDERED: PT OWN MED DRAWER 7, Y5N ONE ×3 (12:15→22:53)
[2020-04-01] MEDS: VALPROATE SODIUM 250 MG/5 ML UNIT DOSE CUP PO SCH ×2 (12:16→22:56)
[2020-04-01] MEDS ORDERED: FE POLYSAC/CYANOCOBAL/FA COMBO CAPSULE PO SCH (16:00)
[2020-04-01] MEDS: FERROUS SO4 300 MG/5 ML ORAL SOLN UNIT DOSE CUPS NGT SCH (17:49)
[2020-04-01] MEDS ORDERED: FAMOTIDINE 40 MG/5 ML ORAL SUSPENSION NGT SCH (22:00)
[2020-04-01] MEDS ORDERED: levETIRAcetam 500 MG/5 ML ORAL SOLUTION (UNIT-DOSE CUPS) PO SCH (22:00)
[2020-04-01] MEDS: levETIRAcetam 500 MG/5 ML ORAL SOLUTION (UNIT-DOSE CUPS) NGT SCH (22:57)
[2020-04-01] MEDS: FAMOTIDINE 40 MG/5 ML ORAL SUSPENSION NGT SCH (22:57)
[2020-04-02] MEDS: PIPERACILLIN/TAZOB 3.375 GM 3.375 GM in DEXTROSE 5%-WATER - 50 ML IVPB SCH ×2 (07:37→10:12)
[2020-04-02 07:54] LABS: BASO % 0.4 % (0-2.0); EOS % 2.1 % (0-4.5); HEMATOCRIT 26.9 % (35.4-49); LYMPH % 23.1 % (8-40); MCHC 33.5 g/dl (32.0-35.9); MEAN CELL VOLUME 89.5 fl (80-96); MEAN PLT VOLUME 9.5 fl (7.5-11.1); MONO % 12.9 % (3.8-10.2); NEUT % 61.5 % (42.8-82.8); PLATELET COUNT 225 K/MM3 (134-434); RDW 15.8 % (11.9-15.9); WHITE BLOOD COUNT 7.8 K/mm3 (4.0-10.0)
[2020-04-02 08:14] LABS: POTASSIUM 4.6 mmol/L (3.5-5.1)
[2020-04-02 08:24] LABS: BILIRUBIN,TOTAL 0.5 mg/dL (0.2-1); TOT PROT 5.9 g/dl (6.4-8.2)
[2020-04-02 08:25] LABS: CALCIUM 8.4 mg/dL (8.5-10.1)
[2020-04-02 08:26] LABS: CREATININE 1.5 mg/dL (0.55-1.3); MAGNESIUM 2.2 mg/dL (1.8-2.4)
[2020-04-02] MEDS ORDERED: PT OWN MED DRAWER 7, Y5N ONE ×2 (10:06→21:04)
[2020-04-02] MEDS: VALPROATE SODIUM 250 MG/5 ML UNIT DOSE CUP NGT SCH ×2 (10:10→21:20)
[2020-04-02] MEDS: FERROUS SO4 300 MG/5 ML ORAL SOLN UNIT DOSE CUPS NGT SCH (10:10)
[2020-04-02] MEDS: levETIRAcetam 500 MG/5 ML ORAL SOLUTION (UNIT-DOSE CUPS) NGT SCH ×2 (10:10→21:19)
[2020-04-02] MEDS: HEPARIN NA (PORCINE) 5,000 UNITS/ML 1ML VIAL SQ SCH ×2 (10:11→21:20)
[2020-04-02] MEDS: FAMOTIDINE 40 MG/5 ML ORAL SUSPENSION NGT SCH ×2 (10:12→21:20)
[2020-04-02] MEDS: CLOPIDOGREL BISULFATE 75 MG TABLET (FP) NGT SCH (10:12)
[2020-04-02] MEDS: amLODIPine BESYLATE 10 MG TABLET (FP) NGT SCH (10:12)
[2020-04-02] MEDS: LABETALOL HCL 100 MG TABLET (FP) NGT SCH ×2 (10:12→21:20)
[2020-04-02] MEDS: ASPIRIN 81 MG CHEWABLE TABLETS NGT SCH (10:12)
[2020-04-02] MEDS: VANCOMYCIN 250 MG/5 ML ORAL SOLUTION PO SCH ×2 (18:37→23:45)
[2020-04-03] MEDS: VANCOMYCIN 250 MG/5 ML ORAL SOLUTION PO SCH ×4 (06:28→23:33)
[2020-04-03] MEDS ORDERED: PT OWN MED DRAWER 7, Y5N ONE ×3 (09:31→21:00)
[2020-04-03] MEDS: HEPARIN NA (PORCINE) 5,000 UNITS/ML 1ML VIAL SQ SCH ×2 (09:51→21:26)
[2020-04-03] MEDS: LABETALOL HCL 100 MG TABLET (FP) NGT SCH ×2 (09:51→21:26)
[2020-04-03] MEDS: amLODIPine BESYLATE 10 MG TABLET (FP) NGT SCH (09:51)
[2020-04-03] MEDS: FERROUS SO4 300 MG/5 ML ORAL SOLN UNIT DOSE CUPS NGT SCH (09:51)
[2020-04-03] MEDS: VALPROATE SODIUM 250 MG/5 ML UNIT DOSE CUP NGT SCH ×2 (09:51→21:25)
[2020-04-03] MEDS: CLOPIDOGREL BISULFATE 75 MG TABLET (FP) NGT SCH (09:51)
[2020-04-03] MEDS: ASPIRIN 81 MG CHEWABLE TABLETS NGT SCH (09:51)
[2020-04-03] MEDS: levETIRAcetam 500 MG/5 ML ORAL SOLUTION (UNIT-DOSE CUPS) NGT SCH ×2 (09:52→21:26)
[2020-04-03] MEDS: FAMOTIDINE 40 MG/5 ML ORAL SUSPENSION NGT SCH ×2 (09:52→21:26)
[2020-04-04] MEDS: VANCOMYCIN 250 MG/5 ML ORAL SOLUTION PO SCH ×4 (06:16→23:03)
[2020-04-04 09:14] LABS: BASO % 0.9 % (0-2.0); EOS % 2.3 % (0-4.5); HEMATOCRIT 27.2 % (35.4-49); HEMOGLOBIN 9.1 GM/dL (11.7-16.9); LYMPH % 19.7 % (8-40); MCH 29.7 pg (25.7-33.7); MCHC 33.4 g/dl (32.0-35.9); MEAN CELL VOLUME 88.9 fl (80-96); MEAN PLT VOLUME 9.5 fl (7.5-11.1); MONO % 9.5 % (3.8-10.2); NEUT % 67.6 % (42.8-82.8); PLATELET COUNT 250 K/MM3 (134-434); RBC 3.06 M/mm3 (4.00-5.60); RDW 15.3 % (11.9-15.9); WHITE BLOOD COUNT 7.4 K/mm3 (4.0-10.0)
[2020-04-04] MEDS ORDERED: PT OWN MED DRAWER 7, Y5N ONE ×2 (09:32→22:59)
[2020-04-04 09:33] LABS: POTASSIUM 4.8 mmol/L (3.5-5.1)
[2020-04-04] MEDS: amLODIPine BESYLATE 10 MG TABLET (FP) NGT SCH (09:34)
[2020-04-04] MEDS: LABETALOL HCL 100 MG TABLET (FP) NGT SCH ×2 (09:34→23:01)
[2020-04-04] MEDS: VALPROATE SODIUM 250 MG/5 ML UNIT DOSE CUP NGT SCH ×2 (09:34→23:02)
[2020-04-04] MEDS: FERROUS SO4 300 MG/5 ML ORAL SOLN UNIT DOSE CUPS NGT SCH (09:34)
[2020-04-04 09:35] LABS: CALCIUM 8.1 mg/dL (8.5-10.1)
[2020-04-04] MEDS: FAMOTIDINE 40 MG/5 ML ORAL SUSPENSION NGT SCH ×2 (09:35→23:02)
[2020-04-04] MEDS: levETIRAcetam 500 MG/5 ML ORAL SOLUTION (UNIT-DOSE CUPS) NGT SCH ×2 (09:35→23:02)
[2020-04-04] MEDS: HEPARIN NA (PORCINE) 5,000 UNITS/ML 1ML VIAL SQ SCH ×2 (09:35→23:01)
[2020-04-04 09:36] LABS: ALBUMIN 1.9 g/dl (3.4-5.0)
[2020-04-04 09:39] LABS: CREATININE 1.3 mg/dL (0.55-1.3)
[2020-04-04 09:40] LABS: BILIRUBIN,TOTAL 0.2 mg/dL (0.2-1)
[2020-04-04 09:41] LABS: TOT PROT 6.1 g/dl (6.4-8.2)
[2020-04-04] MEDS ORDERED: DIVALPROEX SODIUM 250 MG TABLET E.C. NR SCH (22:00)
[2020-04-05] MEDS: VANCOMYCIN 250 MG/5 ML ORAL SOLUTION PO SCH ×4 (05:41→23:25)
[2020-04-05 07:50] LABS: BASO % 0.4 % (0-2.0); HEMATOCRIT 26.7 % (35.4-49); HEMOGLOBIN 8.8 GM/dL (11.7-16.9); MCH 29.5 pg (25.7-33.7); MCHC 32.9 g/dl (32.0-35.9); MEAN CELL VOLUME 89.5 fl (80-96); MEAN PLT VOLUME 9.4 fl (7.5-11.1); MONO % 9.7 % (3.8-10.2); NEUT % 73.9 % (42.8-82.8); PLATELET COUNT 293 K/MM3 (134-434); RBC 2.98 M/mm3 (4.00-5.60); RDW 15.5 % (11.9-15.9); WHITE BLOOD COUNT 8.7 K/mm3 (4.0-10.0)
[2020-04-05 08:03] LABS: POTASSIUM 5.4 mmol/L (3.5-5.1)
[2020-04-05 08:10] LABS: ALBUMIN 1.9 g/dl (3.4-5.0); BLOOD UREA NITROGEN 29.1 mg/dL (7-18); CALCIUM 8.4 mg/dL (8.5-10.1)
[2020-04-05 08:13] LABS: CREATININE 1.4 mg/dL (0.55-1.3)
[2020-04-05 08:14] LABS: BILIRUBIN,TOTAL 0.6 mg/dL (0.2-1)
[2020-04-05 08:15] LABS: TOT PROT 6.2 g/dl (6.4-8.2)
[2020-04-05] MEDS ORDERED: PT OWN MED DRAWER 7, Y5N ONE ×2 (08:48→21:15)
[2020-04-05] MEDS: VALPROATE SODIUM 250 MG/5 ML UNIT DOSE CUP NGT SCH (09:37)
[2020-04-05] MEDS: FAMOTIDINE 40 MG/5 ML ORAL SUSPENSION NGT SCH ×2 (09:37→21:31)
[2020-04-05] MEDS: levETIRAcetam 500 MG/5 ML ORAL SOLUTION (UNIT-DOSE CUPS) NGT SCH ×2 (09:37→21:30)
[2020-04-05] MEDS: LABETALOL HCL 100 MG TABLET (FP) NGT SCH ×2 (09:38→21:30)
[2020-04-05] MEDS: FERROUS SO4 300 MG/5 ML ORAL SOLN UNIT DOSE CUPS NGT SCH (09:38)
[2020-04-05] MEDS: amLODIPine BESYLATE 10 MG TABLET (FP) NGT SCH (09:39)
[2020-04-05] MEDS: HEPARIN NA (PORCINE) 5,000 UNITS/ML 1ML VIAL SQ SCH ×2 (09:41→21:23)
[2020-04-05] MEDS ORDERED: ACETAMINOPHEN 650 MG/20.3 ML ORAL SOLUTION (CUPS) PO PRN (16:20)
[2020-04-06] MEDS: VANCOMYCIN 250 MG/5 ML ORAL SOLUTION PO SCH ×3 (05:45→17:54)
[2020-04-06 07:50] LABS: POTASSIUM 4.8 mmol/L (3.5-5.1)
[2020-04-06 07:51] LABS: BASO % 0.4 % (0-2.0); EOS % 0.8 % (0-4.5); LYMPH % 13.3 % (8-40); MCH 29.8 pg (25.7-33.7); MCHC 33.4 g/dl (32.0-35.9); MEAN CELL VOLUME 89.2 fl (80-96); MEAN PLT VOLUME 9.4 fl (7.5-11.1); MONO % 9.7 % (3.8-10.2); NEUT % 75.8 % (42.8-82.8); PLATELET COUNT 341 K/MM3 (134-434); RBC 3.03 M/mm3 (4.00-5.60); RDW 15.4 % (11.9-15.9); WHITE BLOOD COUNT 7.9 K/mm3 (4.0-10.0)
[2020-04-06 08:19] LABS: CALCIUM 8.6 mg/dL (8.5-10.1)
[2020-04-06 08:20] LABS: BLOOD UREA NITROGEN 34.1 mg/dL (7-18)
[2020-04-06 08:23] LABS: CREATININE 1.4 mg/dL (0.55-1.3)
[2020-04-06 08:24] LABS: BILIRUBIN,TOTAL 0.6 mg/dL (0.2-1); TOT PROT 6.4 g/dl (6.4-8.2)
[2020-04-06] MEDS ORDERED: PT OWN MED DRAWER 7, Y5N ONE ×2 (10:50→21:05)
[2020-04-06] MEDS: FERROUS SO4 300 MG/5 ML ORAL SOLN UNIT DOSE CUPS NGT SCH (10:51)
[2020-04-06] MEDS: amLODIPine BESYLATE 10 MG TABLET (FP) NGT SCH (10:52)
[2020-04-06] MEDS: levETIRAcetam 500 MG/5 ML ORAL SOLUTION (UNIT-DOSE CUPS) NGT SCH ×2 (10:52→22:11)
[2020-04-06] MEDS: LABETALOL HCL 100 MG TABLET (FP) NGT SCH ×2 (10:52→22:11)
[2020-04-06] MEDS: FAMOTIDINE 40 MG/5 ML ORAL SUSPENSION NGT SCH ×2 (10:52→22:12)
[2020-04-06] MEDS: HEPARIN NA (PORCINE) 5,000 UNITS/ML 1ML VIAL SQ SCH ×2 (10:52→22:12)
[2020-04-06] MEDS ORDERED: ACETAMINOPHEN 650 MG/20.3 ML ORAL SOLUTION (CUPS) PO ONE ×2 (14:05→23:52)
[2020-04-06] MEDS ORDERED: CEFEPIME HCL 1 GM VIAL (RESTRICTED TO ID) ONE ×2 (15:16→17:17)
[2020-04-06] MEDS ORDERED: DEXTROSE 5%-WATER 100 ML IVPB ONE ×2 (15:16→17:17)
[2020-04-06] MEDS: CEFEPIME 1 GM in DEXTROSE 5%-WATER 1 GM/100 ML BAG IVPB SCH ×2 (15:42→17:53)
[2020-04-07] MEDS ORDERED: CEFEPIME HCL 1 GM VIAL (RESTRICTED TO ID) ONE ×3 (00:44→17:13)
[2020-04-07] MEDS ORDERED: DEXTROSE 5%-WATER 100 ML IVPB ONE ×3 (00:44→17:13)
[2020-04-07] MEDS: VANCOMYCIN 250 MG/5 ML ORAL SOLUTION PO SCH ×5 (00:51→23:44)
[2020-04-07] MEDS: CEFEPIME 1 GM in DEXTROSE 5%-WATER 1 GM/100 ML BAG IVPB SCH ×3 (01:52→17:48)
[2020-04-07] MEDS ORDERED: PT OWN MED DRAWER 7, Y5N ONE ×3 (06:37→20:45)
[2020-04-07 07:10] LABS: EOS % 0.8 % (0-4.5); HEMATOCRIT 27.5 % (35.4-49); HEMOGLOBIN 9.2 GM/dL (11.7-16.9); MCH 29.5 pg (25.7-33.7); MCHC 33.4 g/dl (32.0-35.9); MEAN CELL VOLUME 88.5 fl (80-96); MEAN PLT VOLUME 8.9 fl (7.5-11.1); MONO % 10.4 % (3.8-10.2); NEUT % 73.8 % (42.8-82.8); PLATELET COUNT 358 K/MM3 (134-434); RDW 15.5 % (11.9-15.9); WHITE BLOOD COUNT 10.1 K/mm3 (4.0-10.0)
[2020-04-07 07:41] LABS: ALBUMIN 1.9 g/dl (3.4-5.0); BILIRUBIN,TOTAL 0.5 mg/dL (0.2-1); BLOOD UREA NITROGEN 40.4 mg/dL (7-18); CALCIUM 8.3 mg/dL (8.5-10.1); CREATININE 1.6 mg/dL (0.55-1.3); TOT PROT 6.2 g/dl (6.4-8.2)
[2020-04-07] MEDS: levETIRAcetam 500 MG/5 ML ORAL SOLUTION (UNIT-DOSE CUPS) NGT SCH ×2 (10:55→22:21)
[2020-04-07] MEDS: HEPARIN NA (PORCINE) 5,000 UNITS/ML 1ML VIAL SQ SCH ×2 (10:55→22:20)
[2020-04-07] MEDS: FERROUS SO4 300 MG/5 ML ORAL SOLN UNIT DOSE CUPS NGT SCH (10:55)
[2020-04-07] MEDS: LABETALOL HCL 100 MG TABLET (FP) NGT SCH ×2 (10:55→22:22)
[2020-04-07] MEDS: FAMOTIDINE 40 MG/5 ML ORAL SUSPENSION NGT SCH ×2 (10:56→22:21)
[2020-04-07] MEDS: amLODIPine BESYLATE 10 MG TABLET (FP) NGT SCH (10:56)
[2020-04-07] MEDS ORDERED: ACETAMINOPHEN 325 MG TABLET (FP) PO ONE (18:31)
[2020-04-08] MEDS ORDERED: CEFEPIME HCL 1 GM VIAL (RESTRICTED TO ID) ONE ×3 (01:13→16:27)
[2020-04-08] MEDS ORDERED: DEXTROSE 5%-WATER 100 ML IVPB ONE ×3 (01:13→16:27)
[2020-04-08] MEDS: CEFEPIME 1 GM in DEXTROSE 5%-WATER 1 GM/100 ML BAG IVPB SCH ×3 (01:15→17:21)
[2020-04-08] MEDS: VANCOMYCIN 250 MG/5 ML ORAL SOLUTION PO SCH ×4 (05:22→23:59)
[2020-04-08] MEDS ORDERED: PT OWN MED DRAWER 7, Y5N ONE ×2 (09:59→21:29)
[2020-04-08 10:02] LABS: BASO % 0.8 % (0-2.0); EOS % 1.7 % (0-4.5); HEMATOCRIT 26.8 % (35.4-49); HEMOGLOBIN 8.7 GM/dL (11.7-16.9); LYMPH % 15.9 % (8-40); MCH 28.8 pg (25.7-33.7); MCHC 32.5 g/dl (32.0-35.9); MEAN CELL VOLUME 88.6 fl (80-96); MEAN PLT VOLUME 9.4 fl (7.5-11.1); MONO % 9.8 % (3.8-10.2); NEUT % 71.8 % (42.8-82.8); PLATELET COUNT 432 K/MM3 (134-434); RBC 3.02 M/mm3 (4.00-5.60); RDW 16.1 % (11.9-15.9); WHITE BLOOD COUNT 9.4 K/mm3 (4.0-10.0)
[2020-04-08] MEDS: FERROUS SO4 300 MG/5 ML ORAL SOLN UNIT DOSE CUPS NGT SCH (10:06)
[2020-04-08] MEDS: amLODIPine BESYLATE 10 MG TABLET (FP) NGT SCH (10:07)
[2020-04-08] MEDS: LABETALOL HCL 100 MG TABLET (FP) NGT SCH ×2 (10:07→21:39)
[2020-04-08] MEDS: levETIRAcetam 500 MG/5 ML ORAL SOLUTION (UNIT-DOSE CUPS) NGT SCH ×2 (10:07→21:39)
[2020-04-08] MEDS: FAMOTIDINE 40 MG/5 ML ORAL SUSPENSION NGT SCH ×2 (10:07→21:39)
[2020-04-08 10:29] LABS: POTASSIUM 5.2 mmol/L (3.5-5.1)
[2020-04-08 10:32] LABS: ALBUMIN 1.8 g/dl (3.4-5.0); CALCIUM 8.7 mg/dL (8.5-10.1)
[2020-04-08 10:33] LABS: BLOOD UREA NITROGEN 45.9 mg/dL (7-18)
[2020-04-08 10:35] LABS: CREATININE 1.6 mg/dL (0.55-1.3)
[2020-04-08 10:37] LABS: TOT PROT 6.4 g/dl (6.4-8.2)
[2020-04-08 10:38] LABS: BILIRUBIN,TOTAL 0.9 mg/dL (0.2-1)
[2020-04-08] MEDS ORDERED: ACETAMINOPHEN 650 MG/20.3 ML ORAL SOLUTION (CUPS) NGT ONE (14:30)
[2020-04-08] MEDS: HEPARIN NA (PORCINE) 5,000 UNITS/ML 1ML VIAL SQ SCH (21:38)
[2020-04-09] MEDS ORDERED: CEFEPIME HCL 1 GM VIAL (RESTRICTED TO ID) ONE ×3 (00:58→16:23)
[2020-04-09] MEDS ORDERED: DEXTROSE 5%-WATER 100 ML IVPB ONE ×3 (00:58→16:23)
[2020-04-09] MEDS: CEFEPIME 1 GM in DEXTROSE 5%-WATER 1 GM/100 ML BAG IVPB SCH ×3 (01:03→17:43)
[2020-04-09] MEDS: VANCOMYCIN 250 MG/5 ML ORAL SOLUTION PO SCH ×3 (05:09→17:43)
[2020-04-09] MEDS ORDERED: PT OWN MED DRAWER 7, Y5N ONE ×2 (09:32→21:22)
[2020-04-09] MEDS: FERROUS SO4 300 MG/5 ML ORAL SOLN UNIT DOSE CUPS NGT SCH (09:34)
[2020-04-09] MEDS: HEPARIN NA (PORCINE) 5,000 UNITS/ML 1ML VIAL SQ SCH ×2 (09:34→21:34)
[2020-04-09] MEDS: levETIRAcetam 500 MG/5 ML ORAL SOLUTION (UNIT-DOSE CUPS) NGT SCH ×2 (09:35→21:34)
[2020-04-09] MEDS: FAMOTIDINE 40 MG/5 ML ORAL SUSPENSION NGT SCH ×2 (09:35→21:34)
[2020-04-09] MEDS: amLODIPine BESYLATE 10 MG TABLET (FP) NGT SCH (09:47)
[2020-04-09] MEDS: LABETALOL HCL 100 MG TABLET (FP) NGT SCH ×2 (09:47→21:33)
[2020-04-09 13:38] LABS: BASO % 0.5 % (0-2.0); EOS % 1.7 % (0-4.5); HEMATOCRIT 25.4 % (35.4-49); HEMOGLOBIN 8.5 GM/dL (11.7-16.9); LYMPH % 13.8 % (8-40); MCH 29.4 pg (25.7-33.7); MCHC 33.4 g/dl (32.0-35.9); MEAN CELL VOLUME 87.9 fl (80-96); MONO % 13.2 % (3.8-10.2); NEUT % 70.8 % (42.8-82.8); PLATELET COUNT 494 K/MM3 (134-434); RBC 2.89 M/mm3 (4.00-5.60); RDW 15.8 % (11.9-15.9); WHITE BLOOD COUNT 8.8 K/mm3 (4.0-10.0)
[2020-04-09] MEDS ORDERED: GLUCAGON 1 MG KIT IVPUSH ONE (15:00)
[2020-04-09] MEDS ORDERED: ACETAMINOPHEN 1000 MG/100 ML VIAL (NON FORMULARY) IVPB ONE (21:50)
[2020-04-10] MEDS: VANCOMYCIN 250 MG/5 ML ORAL SOLUTION PO SCH ×4 (00:31→20:01)
[2020-04-10 01:09] LABS: CALCIUM 8.6 mg/dL (8.5-10.1)
[2020-04-10 01:13] LABS: CREATININE 1.7 mg/dL (0.55-1.3)
[2020-04-10] MEDS ORDERED: DEXTROSE 5%-WATER 100 ML IVPB ONE ×3 (01:26→20:00)
[2020-04-10] MEDS ORDERED: CEFEPIME HCL 1 GM VIAL (RESTRICTED TO ID) ONE ×3 (01:26→20:00)
[2020-04-10] MEDS: CEFEPIME 1 GM in DEXTROSE 5%-WATER 1 GM/100 ML BAG IVPB SCH ×3 (01:28→20:01)
[2020-04-10 08:19] LABS: BASO % 0.5 % (0-2.0); EOS % 2.1 % (0-4.5); HEMATOCRIT 26.6 % (35.4-49); HEMOGLOBIN 8.8 GM/dL (11.7-16.9); LYMPH % 14.5 % (8-40); MCH 29.4 pg (25.7-33.7); MEAN PLT VOLUME 8.9 fl (7.5-11.1); MONO % 13.1 % (3.8-10.2); NEUT % 69.8 % (42.8-82.8); PLATELET COUNT 528 K/MM3 (134-434); RBC 2.99 M/mm3 (4.00-5.60); WHITE BLOOD COUNT 8.1 K/mm3 (4.0-10.0)
[2020-04-10 08:38] LABS: POTASSIUM 4.9 mmol/L (3.5-5.1)
[2020-04-10 09:01] LABS: CALCIUM 8.7 mg/dL (8.5-10.1)
[2020-04-10 09:02] LABS: ALBUMIN 1.8 g/dl (3.4-5.0); BLOOD UREA NITROGEN 52.6 mg/dL (7-18)
[2020-04-10 09:04] LABS: CREATININE 1.5 mg/dL (0.55-1.3)
[2020-04-10 09:06] LABS: TOT PROT 6.5 g/dl (6.4-8.2)
[2020-04-10] MEDS ORDERED: PT OWN MED DRAWER 7, Y5N ONE ×2 (11:36→21:45)
[2020-04-10] MEDS: HEPARIN NA (PORCINE) 5,000 UNITS/ML 1ML VIAL SQ SCH ×2 (11:38→21:54)
[2020-04-10] MEDS: LABETALOL HCL 100 MG TABLET (FP) NGT SCH ×2 (11:38→21:54)
[2020-04-10] MEDS: amLODIPine BESYLATE 10 MG TABLET (FP) NGT SCH (11:38)
[2020-04-10] MEDS: levETIRAcetam 500 MG/5 ML ORAL SOLUTION (UNIT-DOSE CUPS) NGT SCH ×2 (11:39→21:54)
[2020-04-10] MEDS: CLOPIDOGREL BISULFATE 75 MG TABLET (FP) NGT SCH (11:39)
[2020-04-10] MEDS: FAMOTIDINE 40 MG/5 ML ORAL SUSPENSION NGT SCH ×2 (11:39→21:54)
[2020-04-10] MEDS: FERROUS SO4 300 MG/5 ML ORAL SOLN UNIT DOSE CUPS NGT SCH (11:39)
[2020-04-10] MEDS: ASPIRIN 81 MG CHEWABLE TABLETS NGT SCH (11:39)
[2020-04-11] MEDS: VANCOMYCIN 250 MG/5 ML ORAL SOLUTION PO SCH ×3 (00:53→11:08)
[2020-04-11] MEDS ORDERED: CEFEPIME HCL 1 GM VIAL (RESTRICTED TO ID) ONE ×2 (01:23→10:03)
[2020-04-11] MEDS ORDERED: DEXTROSE 5%-WATER 100 ML IVPB ONE ×2 (01:23→10:03)
[2020-04-11] MEDS: CEFEPIME 1 GM in DEXTROSE 5%-WATER 1 GM/100 ML BAG IVPB SCH ×2 (01:24→10:16)
[2020-04-11] MEDS ORDERED: PT OWN MED DRAWER 7, Y5N ONE ×7 (07:02→20:54)
[2020-04-11 07:19] LABS: BASO % 0.7 % (0-2.0); EOS % 1.6 % (0-4.5); HEMATOCRIT 25.2 % (35.4-49); HEMOGLOBIN 8.4 GM/dL (11.7-16.9); LYMPH % 14.5 % (8-40); MCH 29.3 pg (25.7-33.7); MCHC 33.2 g/dl (32.0-35.9); MEAN CELL VOLUME 88.2 fl (80-96); MEAN PLT VOLUME 8.6 fl (7.5-11.1); MONO % 11.9 % (3.8-10.2); NEUT % 71.3 % (42.8-82.8); PLATELET COUNT 598 K/MM3 (134-434); RBC 2.85 M/mm3 (4.00-5.60); RDW 15.8 % (11.9-15.9); WHITE BLOOD COUNT 11.1 K/mm3 (4.0-10.0)
[2020-04-11 07:36] LABS: POTASSIUM 4.9 mmol/L (3.5-5.1)
[2020-04-11 07:45] LABS: ALBUMIN 1.8 g/dl (3.4-5.0); CALCIUM 8.1 mg/dL (8.5-10.1)
[2020-04-11 07:47] LABS: BILIRUBIN,TOTAL 0.4 mg/dL (0.2-1); TOT PROT 6.6 g/dl (6.4-8.2)
[2020-04-11 07:49] LABS: CREATININE 1.7 mg/dL (0.55-1.3)
[2020-04-11] MEDS: FERROUS SO4 300 MG/5 ML ORAL SOLN UNIT DOSE CUPS NGT SCH (10:16)
[2020-04-11] MEDS: LABETALOL HCL 100 MG TABLET (FP) NGT SCH ×2 (10:16→20:59)
[2020-04-11] MEDS: HEPARIN NA (PORCINE) 5,000 UNITS/ML 1ML VIAL SQ SCH ×2 (10:16→20:59)
[2020-04-11] MEDS: levETIRAcetam 500 MG/5 ML ORAL SOLUTION (UNIT-DOSE CUPS) NGT SCH ×2 (10:16→20:59)
[2020-04-11] MEDS: CLOPIDOGREL BISULFATE 75 MG TABLET (FP) NGT SCH (10:16)
[2020-04-11] MEDS: amLODIPine BESYLATE 10 MG TABLET (FP) NGT SCH (10:16)
[2020-04-11] MEDS: ASPIRIN 81 MG CHEWABLE TABLETS NGT SCH (10:17)
[2020-04-11] MEDS: FAMOTIDINE 40 MG/5 ML ORAL SUSPENSION NGT SCH ×2 (15:11→20:59)
[2020-04-11] MEDS: LACTATED RINGERS SOLUTION 1,000 ML/1,000 ML INFUS.BAG IV SCH (17:48)
[2020-04-11] MEDS ORDERED: VANCOMYCIN 1 GRAM (PRE-DOCKED) 1,000 MG/250 ML BAG IVPB ONE (18:30)
[2020-04-11 18:56] LABS: ALBUMIN 1.7 g/dl (3.4-5.0)
[2020-04-11 18:59] LABS: BILIRUBIN,DIRECT 0.4 mg/dL (0.0-0.2)
[2020-04-11 19:01] LABS: BILIRUBIN,TOTAL 0.4 mg/dL (0.2-1); TOT PROT 6.6 g/dl (6.4-8.2)
[2020-04-11] MEDS ORDERED: PIPERACILLIN/TAZOBACTAM 2.25 GM VIAL IVPB ONE ×2 (20:48→20:49)
[2020-04-11] MEDS ORDERED: DEXTROSE 5%-WATER - 50 ML IVPB ONE (20:49)
[2020-04-11] MEDS: PIPERACILLIN/TAZOB 2.25 GM 2.25 GM in DEXTROSE 5%-WATER - 50 ML IVPB SCH (20:59)
[2020-04-12] MEDS ORDERED: DEXTROSE 5%-WATER - 50 ML IVPB ONE ×4 (02:16→20:02)
[2020-04-12] MEDS ORDERED: PIPERACILLIN/TAZOBACTAM 2.25 GM VIAL IVPB ONE ×4 (02:16→20:02)
[2020-04-12] MEDS: PIPERACILLIN/TAZOB 2.25 GM 2.25 GM in DEXTROSE 5%-WATER - 50 ML IVPB SCH ×4 (03:15→20:12)
[2020-04-12] MEDS: LACTATED RINGERS SOLUTION 1,000 ML/1,000 ML INFUS.BAG IV SCH ×2 (04:53→20:27)
[2020-04-12 07:33] LABS: BASO % 0.7 % (0-2.0); HEMATOCRIT 25.9 % (35.4-49); HEMOGLOBIN 8.6 GM/dL (11.7-16.9); INR 1.11 (0.83-1.09); LYMPH % 13.1 % (8-40); MCH 29.5 pg (25.7-33.7); MCHC 33.1 g/dl (32.0-35.9); MEAN CELL VOLUME 89.1 fl (80-96); MEAN PLT VOLUME 8.9 fl (7.5-11.1); MONO % 11.6 % (3.8-10.2); NEUT % 72.6 % (42.8-82.8); PLATELET COUNT 541 K/MM3 (134-434); PROTHROMBIN TIME (PATIENT) 13.6 SEC (9.7-13.0); RBC 2.91 M/mm3 (4.00-5.60); WHITE BLOOD COUNT 10.4 K/mm3 (4.0-10.0)
[2020-04-12 07:34] LABS: POTASSIUM 5.3 mmol/L (3.5-5.1)
[2020-04-12 07:35] LABS: ACTIVATED PTT 26.6 SECONDS (25.2-36.5)
[2020-04-12 07:36] LABS: ALBUMIN 1.6 g/dl (3.4-5.0)
[2020-04-12 07:39] LABS: ALBUMIN 1.6 g/dl (3.4-5.0); BILIRUBIN,DIRECT 0.2 mg/dL (0.0-0.2)
[2020-04-12 07:41] LABS: BILIRUBIN,TOTAL 0.4 mg/dL (0.2-1); CALCIUM 8.2 mg/dL (8.5-10.1); TOT PROT 6.4 g/dl (6.4-8.2)
[2020-04-12 07:42] LABS: CREATININE 1.7 mg/dL (0.55-1.3)
[2020-04-12 07:44] LABS: BILIRUBIN,TOTAL 0.5 mg/dL (0.2-1); TOT PROT 6.1 g/dl (6.4-8.2)
[2020-04-12] MEDS ORDERED: PT OWN MED DRAWER 7, Y5N ONE ×2 (10:09→21:00)
[2020-04-12] MEDS: levETIRAcetam 500 MG/5 ML ORAL SOLUTION (UNIT-DOSE CUPS) NGT SCH (10:38)
[2020-04-12] MEDS: LABETALOL HCL 100 MG TABLET (FP) NGT SCH ×2 (10:41→21:07)
[2020-04-12] MEDS: HEPARIN NA (PORCINE) 5,000 UNITS/ML 1ML VIAL SQ SCH ×2 (10:42→21:06)
[2020-04-12] MEDS: FERROUS SO4 300 MG/5 ML ORAL SOLN UNIT DOSE CUPS NGT SCH (10:42)
[2020-04-12] MEDS: amLODIPine BESYLATE 10 MG TABLET (FP) NGT SCH (10:42)
[2020-04-12] MEDS: ASPIRIN 81 MG CHEWABLE TABLETS NGT SCH ×2 (10:42→10:47)
[2020-04-12] MEDS: FAMOTIDINE 40 MG/5 ML ORAL SUSPENSION NGT SCH ×2 (10:42→21:07)
[2020-04-12] MEDS: CLOPIDOGREL BISULFATE 75 MG TABLET (FP) NGT SCH ×2 (10:43→10:46)
[2020-04-12 20:08] LABS: HEP B CORE AB, TOT Negative (Negative)
[2020-04-12] MEDS: lamoTRIgine 100 MG TABLET PO SCH (21:07)
[2020-04-12] MEDS: levETIRAcetam 500 MG/5 ML ORAL SOLUTION (UNIT-DOSE CUPS) PO SCH (21:07)
[2020-04-13] MEDS ORDERED: PIPERACILLIN/TAZOBACTAM 2.25 GM VIAL IVPB ONE ×4 (02:17→20:59)
[2020-04-13] MEDS ORDERED: DEXTROSE 5%-WATER - 50 ML IVPB ONE ×4 (02:17→20:59)
[2020-04-13] MEDS: PIPERACILLIN/TAZOB 2.25 GM 2.25 GM in DEXTROSE 5%-WATER - 50 ML IVPB SCH ×4 (02:28→21:15)
[2020-04-13] MEDS: HEPARIN NA (PORCINE) 5,000 UNITS/ML 1ML VIAL SQ SCH ×2 (10:37→21:15)
[2020-04-13] MEDS: FERROUS SO4 300 MG/5 ML ORAL SOLN UNIT DOSE CUPS NGT SCH (10:38)
[2020-04-13] MEDS: levETIRAcetam 500 MG/5 ML ORAL SOLUTION (UNIT-DOSE CUPS) PO SCH ×2 (10:38→21:16)
[2020-04-13] MEDS: amLODIPine BESYLATE 10 MG TABLET (FP) NGT SCH (10:38)
[2020-04-13] MEDS: LABETALOL HCL 100 MG TABLET (FP) NGT SCH ×2 (10:38→21:15)
[2020-04-13] MEDS: lamoTRIgine 100 MG TABLET PO SCH ×2 (10:39→21:16)
[2020-04-13] MEDS: FAMOTIDINE 40 MG/5 ML ORAL SUSPENSION NGT SCH ×2 (10:39→21:16)
[2020-04-13 16:06] LABS: BASO % 0.9 % (0-2.0); EOS % 1.8 % (0-4.5); HEMATOCRIT 23.4 % (35.4-49); HEMOGLOBIN 7.6 GM/dL (11.7-16.9); LYMPH % 12.3 % (8-40); MCH 29.2 pg (25.7-33.7); MCHC 32.7 g/dl (32.0-35.9); MEAN CELL VOLUME 89.3 fl (80-96); MEAN PLT VOLUME 9.3 fl (7.5-11.1); MONO % 12.4 % (3.8-10.2); NEUT % 72.6 % (42.8-82.8); PLATELET COUNT 477 K/MM3 (134-434); RBC 2.62 M/mm3 (4.00-5.60); RDW 16.1 % (11.9-15.9)
[2020-04-13 16:22] LABS: POTASSIUM 4.7 mmol/L (3.5-5.1)
[2020-04-13 16:26] LABS: ALBUMIN 1.6 g/dl (3.4-5.0); BLOOD UREA NITROGEN 48.1 mg/dL (7-18); CALCIUM 7.9 mg/dL (8.5-10.1)
[2020-04-13 16:30] LABS: CREATININE 1.9 mg/dL (0.55-1.3)
[2020-04-13 16:31] LABS: BILIRUBIN,TOTAL 0.4 mg/dL (0.2-1); TOT PROT 6.1 g/dl (6.4-8.2)
[2020-04-13] MEDS: LACTATED RINGERS SOLUTION 1,000 ML/1,000 ML INFUS.BAG IV SCH (16:52)
[2020-04-13] MEDS ORDERED: PT OWN MED DRAWER 7, Y5N ONE ×2 (16:53→20:59)
[2020-04-13] MEDS: BANATROL PLUS POWDER PACKET PO SCH (21:16)
[2020-04-14] MEDS ORDERED: DEXTROSE 5%-WATER - 50 ML IVPB ONE ×4 (01:53→21:29)
[2020-04-14] MEDS ORDERED: PIPERACILLIN/TAZOBACTAM 2.25 GM VIAL IVPB ONE ×4 (01:53→21:29)
[2020-04-14] MEDS: PIPERACILLIN/TAZOB 2.25 GM 2.25 GM in DEXTROSE 5%-WATER - 50 ML IVPB SCH ×4 (02:05→21:51)
[2020-04-14] MEDS ORDERED: PT OWN MED DRAWER 7, Y5N ONE ×2 (05:50→22:04)
[2020-04-14] MEDS: BANATROL PLUS POWDER PACKET PO SCH ×3 (06:00→22:17)
[2020-04-14] MEDS: FERROUS SO4 300 MG/5 ML ORAL SOLN UNIT DOSE CUPS NGT SCH (10:28)
[2020-04-14] MEDS: HEPARIN NA (PORCINE) 5,000 UNITS/ML 1ML VIAL SQ SCH ×2 (10:29→22:16)
[2020-04-14] MEDS: amLODIPine BESYLATE 10 MG TABLET (FP) NGT SCH (10:29)
[2020-04-14] MEDS: lamoTRIgine 100 MG TABLET PO SCH ×2 (10:29→22:16)
[2020-04-14] MEDS: LABETALOL HCL 100 MG TABLET (FP) NGT SCH ×2 (10:29→22:16)
[2020-04-14] MEDS: FAMOTIDINE 40 MG/5 ML ORAL SUSPENSION NGT SCH ×2 (10:33→22:17)
[2020-04-14] MEDS: levETIRAcetam 500 MG/5 ML ORAL SOLUTION (UNIT-DOSE CUPS) PO SCH ×2 (10:33→22:16)
[2020-04-14 11:27] LABS: BASO % 0.6 % (0-2.0); EOS % 1.4 % (0-4.5); HEMATOCRIT 24.6 % (35.4-49); HEMOGLOBIN 8.2 GM/dL (11.7-16.9); LYMPH % 12.3 % (8-40); MCH 29.4 pg (25.7-33.7); MCHC 33.4 g/dl (32.0-35.9); MEAN CELL VOLUME 88.1 fl (80-96); MEAN PLT VOLUME 8.7 fl (7.5-11.1); MONO % 8.9 % (3.8-10.2); NEUT % 76.8 % (42.8-82.8); PLATELET COUNT 563 K/MM3 (134-434); RBC 2.79 M/mm3 (4.00-5.60); RDW 16.1 % (11.9-15.9); WHITE BLOOD COUNT 10.7 K/mm3 (4.0-10.0)
[2020-04-14 11:51] LABS: POTASSIUM 5.2 mmol/L (3.5-5.1)
[2020-04-14 11:56] LABS: ALBUMIN 1.6 g/dl (3.4-5.0); CALCIUM 8.5 mg/dL (8.5-10.1)
[2020-04-14 11:57] LABS: BLOOD UREA NITROGEN 44.8 mg/dL (7-18)
[2020-04-14 11:59] LABS: CREATININE 1.9 mg/dL (0.55-1.3)
[2020-04-14 12:00] LABS: BILIRUBIN,TOTAL 0.4 mg/dL (0.2-1)
[2020-04-14 12:01] LABS: TOT PROT 6.5 g/dl (6.4-8.2)
[2020-04-14] MEDS: LACTATED RINGERS SOLUTION 1,000 ML/1,000 ML INFUS.BAG IV SCH ×2 (14:24→22:17)
[2020-04-14] MEDS: IBUPROFEN 800 MG/8 ML IJ IVPB PRN (16:35)
[2020-04-15] MEDS ORDERED: PIPERACILLIN/TAZOBACTAM 2.25 GM VIAL IVPB ONE ×4 (02:27→22:59)
[2020-04-15] MEDS ORDERED: DEXTROSE 5%-WATER - 50 ML IVPB ONE ×4 (02:28→23:00)
[2020-04-15] MEDS: PIPERACILLIN/TAZOB 2.25 GM 2.25 GM in DEXTROSE 5%-WATER - 50 ML IVPB SCH ×4 (02:57→23:02)
[2020-04-15] MEDS ORDERED: PT OWN MED DRAWER 7, Y5N ONE ×6 (03:15→22:59)
[2020-04-15] MEDS: BANATROL PLUS POWDER PACKET PO SCH ×3 (05:14→23:03)
[2020-04-15] MEDS: amLODIPine BESYLATE 10 MG TABLET (FP) NGT SCH (09:03)
[2020-04-15] MEDS: LABETALOL HCL 100 MG TABLET (FP) NGT SCH ×2 (09:03→23:01)
[2020-04-15] MEDS: HEPARIN NA (PORCINE) 5,000 UNITS/ML 1ML VIAL SQ SCH (09:03)
[2020-04-15] MEDS: FERROUS SO4 300 MG/5 ML ORAL SOLN UNIT DOSE CUPS NGT SCH (09:03)
[2020-04-15] MEDS: lamoTRIgine 100 MG TABLET PO SCH ×2 (09:03→23:02)
[2020-04-15] MEDS: IBUPROFEN 800 MG/8 ML IJ IVPB PRN (09:19)
[2020-04-15] MEDS: levETIRAcetam 500 MG/5 ML ORAL SOLUTION (UNIT-DOSE CUPS) PO SCH (11:43)
[2020-04-15] MEDS: FAMOTIDINE 40 MG/5 ML ORAL SUSPENSION NGT SCH ×2 (11:43→23:04)
[2020-04-15 14:48] LABS: POTASSIUM 4.7 mmol/L (3.5-5.1)
[2020-04-15 14:51] LABS: ALBUMIN 1.5 g/dl (3.4-5.0); BLOOD UREA NITROGEN 44.2 mg/dL (7-18)
[2020-04-15 14:55] LABS: CREATININE 2.1 mg/dL (0.55-1.3)
[2020-04-15 14:56] LABS: BILIRUBIN,TOTAL 0.8 mg/dL (0.2-1)
[2020-04-15 14:57] LABS: TOT PROT 5.9 g/dl (6.4-8.2)
[2020-04-15] MEDS: LACTATED RINGERS SOLUTION 1,000 ML/1,000 ML INFUS.BAG IV SCH (23:02)
[2020-04-16] MEDS ORDERED: PIPERACILLIN/TAZOBACTAM 2.25 GM VIAL IVPB ONE ×3 (01:47→14:29)
[2020-04-16] MEDS ORDERED: DEXTROSE 5%-WATER - 50 ML IVPB ONE ×3 (01:48→14:29)
[2020-04-16] MEDS: IBUPROFEN 800 MG/8 ML IJ IVPB PRN (01:48)
[2020-04-16] MEDS: levETIRAcetam 500 MG/5 ML ORAL SOLUTION (UNIT-DOSE CUPS) PO SCH (03:23)
[2020-04-16] MEDS: PIPERACILLIN/TAZOB 2.25 GM 2.25 GM in DEXTROSE 5%-WATER - 50 ML IVPB SCH ×2 (03:23→10:14)
[2020-04-16] MEDS ORDERED: PT OWN MED DRAWER 7, Y5N ONE ×3 (06:24→21:31)
[2020-04-16] MEDS: BANATROL PLUS POWDER PACKET PO SCH ×3 (06:25→21:37)
[2020-04-16] MEDS: amLODIPine BESYLATE 10 MG TABLET (FP) NGT SCH (10:15)
[2020-04-16] MEDS: FERROUS SO4 300 MG/5 ML ORAL SOLN UNIT DOSE CUPS NGT SCH (10:15)
[2020-04-16] MEDS: PANTOPRAZOLE SODIUM 40 MG VIAL IVPUSH SCH (10:15)
[2020-04-16] MEDS: LABETALOL HCL 100 MG TABLET (FP) NGT SCH ×2 (10:15→21:36)
[2020-04-16] MEDS: lamoTRIgine 100 MG TABLET PO SCH ×2 (10:15→21:36)
[2020-04-16 10:35] LABS: BASO % 0.3 % (0-2.0); EOS % 2.1 % (0-4.5); HEMATOCRIT 22.3 % (35.4-49); HEMOGLOBIN 7.4 GM/dL (11.7-16.9); LYMPH % 12.4 % (8-40); MCH 28.8 pg (25.7-33.7); MEAN CELL VOLUME 87.5 fl (80-96); MEAN PLT VOLUME 8.3 fl (7.5-11.1); MONO % 6.5 % (3.8-10.2); NEUT % 78.7 % (42.8-82.8); PLATELET COUNT 428 K/MM3 (134-434); RBC 2.55 M/mm3 (4.00-5.60); RDW 16.3 % (11.9-15.9); WHITE BLOOD COUNT 9.8 K/mm3 (4.0-10.0)
[2020-04-16 10:49] LABS: POTASSIUM 4.7 mmol/L (3.5-5.1)
[2020-04-16 11:08] LABS: ALBUMIN 1.5 g/dl (3.4-5.0); BLOOD UREA NITROGEN 42.3 mg/dL (7-18)
[2020-04-16 11:10] LABS: BILIRUBIN,TOTAL 0.5 mg/dL (0.2-1); TOT PROT 5.9 g/dl (6.4-8.2)
[2020-04-16 11:11] LABS: CALCIUM 8.5 mg/dL (8.5-10.1)
[2020-04-16 15:33] LABS: BF GLUCOSE (CSF ONLY) 100 mg/dL (40-70)
[2020-04-16 16:09] LABS: CSF APPEARANCE CLEAR; CSF COLOR COLORLESS
[2020-04-16 16:10] LABS: CSF WBC 2
[2020-04-16] MEDS: LACTATED RINGERS SOLUTION 1,000 ML/1,000 ML INFUS.BAG IV SCH (21:29)
[2020-04-17] MEDS: LACTATED RINGERS SOLUTION 1,000 ML/1,000 ML INFUS.BAG IV SCH ×2 (01:50→17:30)
[2020-04-17] MEDS: BANATROL PLUS POWDER PACKET PO SCH ×3 (05:00→21:11)
[2020-04-17] MEDS: FERROUS SO4 300 MG/5 ML ORAL SOLN UNIT DOSE CUPS NGT SCH (09:59)
[2020-04-17] MEDS: ASPIRIN 81 MG CHEWABLE TABLETS NGT SCH (10:00)
[2020-04-17] MEDS: PANTOPRAZOLE SODIUM 40 MG VIAL IVPUSH SCH (10:00)
[2020-04-17] MEDS: lamoTRIgine 100 MG TABLET PO SCH ×2 (10:00→21:11)
[2020-04-17] MEDS: LABETALOL HCL 100 MG TABLET (FP) NGT SCH ×2 (10:00→21:11)
[2020-04-17] MEDS: CLOPIDOGREL BISULFATE 75 MG TABLET (FP) NGT SCH (10:00)
[2020-04-17] MEDS: amLODIPine BESYLATE 10 MG TABLET (FP) NGT SCH (10:00)
[2020-04-17] MEDS ORDERED: PT OWN MED DRAWER 7, Y5N ONE ×2 (10:29→20:35)
[2020-04-18] MEDS: LACTATED RINGERS SOLUTION 1,000 ML/1,000 ML INFUS.BAG IV SCH ×2 (04:21→22:05)
[2020-04-18] MEDS ORDERED: PT OWN MED DRAWER 7, Y5N ONE ×3 (05:03→22:07)
[2020-04-18] MEDS: BANATROL PLUS POWDER PACKET PO SCH ×3 (05:05→22:09)
[2020-04-18 07:33] LABS: BASO % 0.5 % (0-2.0); EOS % 2.4 % (0-4.5); HEMATOCRIT 22.2 % (35.4-49); HEMOGLOBIN 7.2 GM/dL (11.7-16.9); LYMPH % 13.6 % (8-40); MCH 28.5 pg (25.7-33.7); MCHC 32.3 g/dl (32.0-35.9); MEAN CELL VOLUME 88.3 fl (80-96); MEAN PLT VOLUME 8.7 fl (7.5-11.1); MONO % 6.9 % (3.8-10.2); NEUT % 76.6 % (42.8-82.8); PLATELET COUNT 365 K/MM3 (134-434); RBC 2.51 M/mm3 (4.00-5.60); RDW 16.6 % (11.9-15.9); WHITE BLOOD COUNT 8.7 K/mm3 (4.0-10.0)
[2020-04-18 07:51] LABS: ALBUMIN 1.5 g/dl (3.4-5.0); BLOOD UREA NITROGEN 37.7 mg/dL (7-18)
[2020-04-18 07:53] LABS: CREATININE 1.6 mg/dL (0.55-1.3)
[2020-04-18 07:55] LABS: BILIRUBIN,TOTAL 0.5 mg/dL (0.2-1)
[2020-04-18 07:57] LABS: TOT PROT 5.6 g/dl (6.4-8.2)
[2020-04-18 09:50] LABS: EPI CELLS 1 /uL (0-25.1); HYALINE CASTS 0 /uL (0-3.1); URINE APPEARANCE CLEAR; URINE BACTERIA 179 /uL (0-1359); URINE BILIRUBIN NEGATIVE (NEGATIVE); URINE COLOR YELLOW; URINE GLUCOSE (UA) NEGATIVE (NEGATIVE); URINE KETONE NEGATIVE (NEGATIVE); URINE LEUK ESTERASE TRACE (NEGATIVE); URINE NITRITE NEGATIVE (NEGATIVE); URINE PROTEIN 1+ (NEGATIVE); URINE UROBILINOGEN 0.2 mg/dL (0.2-1.0); URINE WBC 158 /uL (0-25.8)
[2020-04-18 09:52] LABS: URINE RBC 93.5 /uL (0-23.9)
[2020-04-18] MEDS: PANTOPRAZOLE SODIUM 40 MG VIAL IVPUSH SCH (11:32)
[2020-04-18] MEDS: LABETALOL HCL 100 MG TABLET (FP) NGT SCH ×2 (11:32→22:10)
[2020-04-18] MEDS: ASPIRIN 81 MG CHEWABLE TABLETS NGT SCH (11:32)
[2020-04-18] MEDS: amLODIPine BESYLATE 10 MG TABLET (FP) NGT SCH (11:32)
[2020-04-18] MEDS: FERROUS SO4 300 MG/5 ML ORAL SOLN UNIT DOSE CUPS NGT SCH (11:32)
[2020-04-18] MEDS: lamoTRIgine 100 MG TABLET PO SCH ×2 (11:32→22:11)
[2020-04-18] MEDS: CLOPIDOGREL BISULFATE 75 MG TABLET (FP) NGT SCH (11:32)
[2020-04-18 13:32] LABS: YEAST PRESENT (NEGATIVE)
[2020-04-19] MEDS ORDERED: PT OWN MED DRAWER 7, Y5N ONE ×3 (05:01→22:50)
[2020-04-19] MEDS: BANATROL PLUS POWDER PACKET PO SCH ×3 (05:18→22:50)
[2020-04-19] MEDS: LACTATED RINGERS SOLUTION 1,000 ML/1,000 ML INFUS.BAG IV SCH ×2 (06:07→11:15)
[2020-04-19 07:35] LABS: BASO % 0.5 % (0-2.0); EOS % 1.7 % (0-4.5); HEMATOCRIT 20.9 % (35.4-49); MCH 28.7 pg (25.7-33.7); MCHC 32.8 g/dl (32.0-35.9); MEAN CELL VOLUME 87.5 fl (80-96); MEAN PLT VOLUME 8.5 fl (7.5-11.1); NEUT % 77.8 % (42.8-82.8); PLATELET COUNT 374 K/MM3 (134-434); RBC 2.39 M/mm3 (4.00-5.60); RDW 16.5 % (11.9-15.9); WHITE BLOOD COUNT 8.7 K/mm3 (4.0-10.0)
[2020-04-19 07:48] LABS: POTASSIUM 4.9 mmol/L (3.5-5.1)
[2020-04-19 07:50] LABS: CALCIUM 8.4 mg/dL (8.5-10.1)
[2020-04-19 07:51] LABS: ALBUMIN 1.6 g/dl (3.4-5.0); HEMOGLOBIN 6.9 GM/dL (11.7-16.9)
[2020-04-19 07:54] LABS: CREATININE 1.6 mg/dL (0.55-1.3)
[2020-04-19 07:55] LABS: BILIRUBIN,TOTAL 0.4 mg/dL (0.2-1)
[2020-04-19] MEDS: PANTOPRAZOLE SODIUM 40 MG VIAL IVPUSH SCH (11:14)
[2020-04-19] MEDS: FERROUS SO4 300 MG/5 ML ORAL SOLN UNIT DOSE CUPS NGT SCH (11:14)
[2020-04-19] MEDS: LABETALOL HCL 100 MG TABLET (FP) NGT SCH ×2 (11:14→22:50)
[2020-04-19] MEDS: CLOPIDOGREL BISULFATE 75 MG TABLET (FP) NGT SCH (11:14)
[2020-04-19] MEDS: ASPIRIN 81 MG CHEWABLE TABLETS NGT SCH (11:14)
[2020-04-19] MEDS: amLODIPine BESYLATE 10 MG TABLET (FP) NGT SCH (11:14)
[2020-04-19] MEDS: lamoTRIgine 100 MG TABLET PO SCH ×2 (11:15→22:50)
[2020-04-19 16:09] LABS: ATYPICAL pANCA <1:20 titer (Neg:<1:20); C-ANCA <1:20 titer (Neg:<1:20)
[2020-04-20] MEDS: LACTATED RINGERS SOLUTION 1,000 ML/1,000 ML INFUS.BAG IV SCH ×2 (04:57→10:27)
[2020-04-20] MEDS: BANATROL PLUS POWDER PACKET PO SCH ×3 (05:14→21:04)
[2020-04-20] MEDS ORDERED: PT OWN MED DRAWER 7, Y5N ONE ×2 (10:23→20:30)
[2020-04-20] MEDS: ASPIRIN 81 MG CHEWABLE TABLETS NGT SCH (10:25)
[2020-04-20] MEDS: PANTOPRAZOLE SODIUM 40 MG VIAL IVPUSH SCH (10:25)
[2020-04-20] MEDS: lamoTRIgine 100 MG TABLET PO SCH ×2 (10:26→21:04)
[2020-04-20] MEDS: FERROUS SO4 300 MG/5 ML ORAL SOLN UNIT DOSE CUPS NGT SCH (10:26)
[2020-04-20] MEDS: LABETALOL HCL 100 MG TABLET (FP) NGT SCH ×2 (10:26→21:04)
[2020-04-20] MEDS: CLOPIDOGREL BISULFATE 75 MG TABLET (FP) NGT SCH (10:26)
[2020-04-20] MEDS: amLODIPine BESYLATE 10 MG TABLET (FP) NGT SCH (10:26)
[2020-04-21] MEDS ORDERED: PT OWN MED DRAWER 7, Y5N ONE ×2 (05:46→20:09)
[2020-04-21] MEDS: BANATROL PLUS POWDER PACKET PO SCH ×3 (06:01→21:19)
[2020-04-21] MEDS: LABETALOL HCL 100 MG TABLET (FP) NGT SCH ×2 (11:12→21:19)
[2020-04-21] MEDS: CLOPIDOGREL BISULFATE 75 MG TABLET (FP) NGT SCH (11:12)
[2020-04-21] MEDS: PANTOPRAZOLE SODIUM 40 MG VIAL IVPUSH SCH (11:12)
[2020-04-21] MEDS: ASPIRIN 81 MG CHEWABLE TABLETS NGT SCH (11:12)
[2020-04-21] MEDS: FERROUS SO4 300 MG/5 ML ORAL SOLN UNIT DOSE CUPS NGT SCH (11:13)
[2020-04-21] MEDS: lamoTRIgine 100 MG TABLET PO SCH ×2 (11:13→21:19)
[2020-04-21] MEDS: MULTIVITAMINS (DAILY MVI) TABLET (FP) PO SCH (11:13)
[2020-04-21] MEDS: amLODIPine BESYLATE 10 MG TABLET (FP) NGT SCH (11:13)
[2020-04-21] MEDS: LACTATED RINGERS SOLUTION 1,000 ML/1,000 ML INFUS.BAG IV SCH (14:31)
[2020-04-21 16:05] LABS: EPI CELLS 27 /uL (0-25.1); HYALINE CASTS 3 /uL (0-3.1); PH,URINE 7.5 (5.0-8.0); URINE APPEARANCE CLEAR; URINE BACTERIA 45 /uL (0-1359); URINE BILIRUBIN NEGATIVE (NEGATIVE); URINE COLOR YELLOW; URINE GLUCOSE (UA) NEGATIVE (NEGATIVE); URINE KETONE NEGATIVE (NEGATIVE); URINE LEUK ESTERASE TRACE (NEGATIVE); URINE NITRITE NEGATIVE (NEGATIVE); URINE PROTEIN 1+ (NEGATIVE); URINE RBC 25 /uL (0-23.9); URINE WBC 66 /uL (0-25.8)
[2020-04-21 23:41] LABS: HEMATOCRIT 30.2 % (35.4-49); MCH 28.5 pg (25.7-33.7); MEAN CELL VOLUME 86.3 fl (80-96); MEAN PLT VOLUME 8.3 fl (7.5-11.1); PLATELET COUNT 295 K/MM3 (134-434); RDW 17.4 % (11.9-15.9); WHITE BLOOD COUNT 9.6 K/mm3 (4.0-10.0)
[2020-04-22] LABS: POTASSIUM 4.6 mmol/L (3.5-5.1)
[2020-04-22 00:01] LABS: CALCIUM 8.2 mg/dL (8.5-10.1)
[2020-04-22 00:02] LABS: BLOOD UREA NITROGEN 31.7 mg/dL (7-18)
[2020-04-22 00:05] LABS: CREATININE 1.4 mg/dL (0.55-1.3)
[2020-04-22] MEDS ORDERED: PT OWN MED DRAWER 7, Y5N ONE ×3 (06:34→21:39)
[2020-04-22] MEDS: BANATROL PLUS POWDER PACKET PO SCH ×3 (06:35→21:40)
[2020-04-22 08:23] LABS: ALBUMIN 1.5 g/dl (3.4-5.0)
[2020-04-22 08:26] LABS: BILIRUBIN,DIRECT 0.2 mg/dL (0.0-0.2)
[2020-04-22 08:28] LABS: BILIRUBIN,TOTAL 0.6 mg/dL (0.2-1); TOT PROT 5.7 g/dl (6.4-8.2)
[2020-04-22 10:07] LABS: TOXOPLASMA IGG,CSF < 3.0 IU/mL (.)
[2020-04-22] MEDS: FERROUS SO4 300 MG/5 ML ORAL SOLN UNIT DOSE CUPS NGT SCH (10:32)
[2020-04-22] MEDS: MULTIVITAMINS (DAILY MVI) TABLET (FP) PO SCH (10:33)
[2020-04-22] MEDS: LABETALOL HCL 100 MG TABLET (FP) NGT SCH ×2 (10:33→21:40)
[2020-04-22] MEDS: CLOPIDOGREL BISULFATE 75 MG TABLET (FP) NGT SCH (10:34)
[2020-04-22] MEDS: ASPIRIN 81 MG CHEWABLE TABLETS NGT SCH (10:34)
[2020-04-22] MEDS: lamoTRIgine 100 MG TABLET PO SCH ×2 (10:34→21:40)
[2020-04-22] MEDS: PANTOPRAZOLE SODIUM 40 MG VIAL IVPUSH SCH (10:34)
[2020-04-22] MEDS: amLODIPine BESYLATE 10 MG TABLET (FP) NGT SCH (10:34)
[2020-04-22] MEDS: LACTATED RINGERS SOLUTION 1,000 ML/1,000 ML INFUS.BAG IV SCH (14:44)
[2020-04-22 15:07] LABS: TOTAL PROTEIN, URINE 46.2 mg/dL (Not Estab.)
[2020-04-22 17:06] LABS: ALPHA-1-GLOBULIN,CSF 9.2 % (1.1-6.6); ALPHA-2-GLOBULIN,CSF 5.6 % (3.0-12.6); BETA GLOBULIN,CSF 23.5 % (7.3-17.9); GAMMA GLOBULIN,CSF 12.6 % (3.0-13.0); M-SPIKE CSF Not Observed % (Not Observed); PRE-ALBUMIN CSF 7.4 % (2.2-7.1)
[2020-04-23] MEDS: BANATROL PLUS POWDER PACKET PO SCH ×3 (05:03→21:46)
[2020-04-23] MEDS: LABETALOL HCL 100 MG TABLET (FP) NGT SCH ×2 (09:48→21:46)
[2020-04-23] MEDS: ASPIRIN 81 MG CHEWABLE TABLETS NGT SCH (09:48)
[2020-04-23] MEDS: amLODIPine BESYLATE 10 MG TABLET (FP) NGT SCH (09:48)
[2020-04-23] MEDS: PANTOPRAZOLE SODIUM 40 MG VIAL IVPUSH SCH (09:48)
[2020-04-23] MEDS: lamoTRIgine 100 MG TABLET PO SCH ×2 (09:48→21:46)
[2020-04-23] MEDS: CLOPIDOGREL BISULFATE 75 MG TABLET (FP) NGT SCH (09:48)
[2020-04-23] MEDS: MULTIVITAMINS (DAILY MVI) TABLET (FP) PO SCH (09:48)
[2020-04-23] MEDS: FERROUS SO4 300 MG/5 ML ORAL SOLN UNIT DOSE CUPS NGT SCH (09:49)
[2020-04-23 12:22] LABS: BASO % 0.5 % (0-2.0); EOS % 2.3 % (0-4.5); HEMATOCRIT 32.1 % (35.4-49); HEMOGLOBIN 10.4 GM/dL (11.7-16.9); LYMPH % 10.8 % (8-40); MCH 27.8 pg (25.7-33.7); MCHC 32.3 g/dl (32.0-35.9); MEAN CELL VOLUME 86.1 fl (80-96); MEAN PLT VOLUME 8.4 fl (7.5-11.1); MONO % 4.7 % (3.8-10.2); NEUT % 81.7 % (42.8-82.8); PLATELET COUNT 273 K/MM3 (134-434); RBC 3.73 M/mm3 (4.00-5.60); RDW 17.6 % (11.9-15.9); WHITE BLOOD COUNT 11.2 K/mm3 (4.0-10.0)
[2020-04-23] MEDS ORDERED: PT OWN MED DRAWER 7, Y5N ONE ×2 (12:29→21:45)
[2020-04-23 12:36] LABS: POTASSIUM 5.2 mmol/L (3.5-5.1)
[2020-04-23 12:38] LABS: CALCIUM 7.9 mg/dL (8.5-10.1)
[2020-04-23 12:39] LABS: ALBUMIN 1.6 g/dl (3.4-5.0)
[2020-04-23 12:41] LABS: URIC ACID 3.7 mg/dL (2.6-7.2)
[2020-04-23 12:42] LABS: CREATININE 1.2 mg/dL (0.55-1.3)
[2020-04-23 12:43] LABS: BILIRUBIN,TOTAL 0.6 mg/dL (0.2-1); TOT PROT 5.8 g/dl (6.4-8.2)
[2020-04-23 12:44] LABS: N-TERMINAL BNP 962.6 pg/ml (5-450)
[2020-04-23] MEDS: LACTATED RINGERS SOLUTION 1,000 ML/1,000 ML INFUS.BAG IV SCH (13:04)
[2020-04-23] MEDS: methylPREDNISolone NA SUCC 40 MG/1 ML VIAL IVPUSH SCH (13:06)
[2020-04-23 13:35] LABS: ERYTHROCYTE SEDIMENTATION RATE 98 mm/hr (0-20)
[2020-04-24] MEDS: LACTATED RINGERS SOLUTION 1,000 ML/1,000 ML INFUS.BAG IV SCH ×2 (05:33→10:50)
[2020-04-24] MEDS: BANATROL PLUS POWDER PACKET PO SCH ×3 (06:31→23:04)
[2020-04-24] MEDS: FERROUS SO4 300 MG/5 ML ORAL SOLN UNIT DOSE CUPS NGT SCH (10:47)
[2020-04-24] MEDS: methylPREDNISolone NA SUCC 40 MG/1 ML VIAL IVPUSH SCH (10:48)
[2020-04-24] MEDS: PANTOPRAZOLE SODIUM 40 MG VIAL IVPUSH SCH (10:48)
[2020-04-24] MEDS: MULTIVITAMINS (DAILY MVI) TABLET (FP) PO SCH (10:49)
[2020-04-24] MEDS: LABETALOL HCL 100 MG TABLET (FP) NGT SCH ×2 (10:49→23:05)
[2020-04-24] MEDS: amLODIPine BESYLATE 10 MG TABLET (FP) NGT SCH (10:49)
[2020-04-24] MEDS: ASPIRIN 81 MG CHEWABLE TABLETS NGT SCH (10:49)
[2020-04-24] MEDS: lamoTRIgine 100 MG TABLET PO SCH ×2 (10:49→23:05)
[2020-04-24] MEDS: CLOPIDOGREL BISULFATE 75 MG TABLET (FP) NGT SCH (10:50)
[2020-04-24] MEDS ORDERED: PT OWN MED DRAWER 7, Y5N ONE ×3 (13:23→23:46)
[2020-04-24 13:51] LABS: POTASSIUM 4.4 mmol/L (3.5-5.1)
[2020-04-24 13:55] LABS: BLOOD UREA NITROGEN 34.4 mg/dL (7-18)
[2020-04-24 13:59] LABS: CREATININE 1.1 mg/dL (0.55-1.3)
[2020-04-24] MEDS ORDERED: LACTATED RINGERS SOLUTION 1,000 ML/1,000 ML INFUS.BAG IV SCH (16:01)
[2020-04-25] MEDS: BANATROL PLUS POWDER PACKET PO SCH ×2 (05:09→17:37)
[2020-04-25] MEDS ORDERED: methylPREDNISolone NA SUCC 40 MG/1 ML VIAL IVPUSH SCH (10:00)
[2020-04-25] MEDS: amLODIPine BESYLATE 10 MG TABLET (FP) NGT SCH (11:04)
[2020-04-25] MEDS: lamoTRIgine 100 MG TABLET PO SCH ×2 (11:05→21:41)
[2020-04-25] MEDS: LABETALOL HCL 100 MG TABLET (FP) NGT SCH ×2 (11:05→21:41)
[2020-04-25] MEDS: CLOPIDOGREL BISULFATE 75 MG TABLET (FP) NGT SCH (11:05)
[2020-04-25] MEDS: FERROUS SO4 300 MG/5 ML ORAL SOLN UNIT DOSE CUPS NGT SCH (11:05)
[2020-04-25] MEDS: ASPIRIN 81 MG CHEWABLE TABLETS NGT SCH (11:05)
[2020-04-25] MEDS: MULTIVITAMINS (DAILY MVI) TABLET (FP) PO SCH (11:05)
[2020-04-25] MEDS: PANTOPRAZOLE SODIUM 40 MG VIAL IVPUSH SCH (11:05)
[2020-04-25 12:11] LABS: EPI CELLS 9 /uL (0-25.1); HYALINE CASTS 0 /uL (0-3.1); URINE APPEARANCE CLEAR; URINE BACTERIA 499 /uL (0-1359); URINE BILIRUBIN NEGATIVE (NEGATIVE); URINE COLOR YELLOW; URINE GLUCOSE (UA) NEGATIVE (NEGATIVE); URINE KETONE NEGATIVE (NEGATIVE); URINE LEUK ESTERASE TRACE (NEGATIVE); URINE NITRITE NEGATIVE (NEGATIVE); URINE PROTEIN NEGATIVE (NEGATIVE); URINE WBC 46 /uL (0-25.8)
[2020-04-25 12:13] LABS: URINE RBC 78.1 /uL (0-23.9)
[2020-04-25 12:21] LABS: YEAST NON SEEN (NEGATIVE)
[2020-04-26 10:12] LABS: BASO % 0.1 % (0-2.0); HEMATOCRIT 28.1 % (35.4-49); LYMPH % 5.5 % (8-40); MCH 27.5 pg (25.7-33.7); MCHC 32.1 g/dl (32.0-35.9); MEAN CELL VOLUME 85.7 fl (80-96); MEAN PLT VOLUME 8.9 fl (7.5-11.1); NEUT % 87.4 % (42.8-82.8); PLATELET COUNT 316 K/MM3 (134-434); RBC 3.28 M/mm3 (4.00-5.60); RDW 17.8 % (11.9-15.9); WHITE BLOOD COUNT 12.3 K/mm3 (4.0-10.0)
[2020-04-26 10:36] LABS: POTASSIUM 4.7 mmol/L (3.5-5.1)
[2020-04-26 10:40] LABS: ALBUMIN 1.8 g/dl (3.4-5.0); BLOOD UREA NITROGEN 35.9 mg/dL (7-18)
[2020-04-26 10:43] LABS: CREATININE 1.1 mg/dL (0.55-1.3)
[2020-04-26 10:44] LABS: BILIRUBIN,TOTAL 0.7 mg/dL (0.2-1)
[2020-04-26 10:45] LABS: TOT PROT 5.8 g/dl (6.4-8.2)
[2020-04-26] MEDS: MULTIVITAMINS (DAILY MVI) TABLET (FP) PO SCH (11:00)
[2020-04-26] MEDS: amLODIPine BESYLATE 10 MG TABLET (FP) NGT SCH (11:00)
[2020-04-26] MEDS: LABETALOL HCL 100 MG TABLET (FP) NGT SCH ×2 (11:00→23:10)
[2020-04-26] MEDS: CLOPIDOGREL BISULFATE 75 MG TABLET (FP) NGT SCH (11:00)
[2020-04-26] MEDS: predniSONE 20 MG TABLET (UD) PO SCH (11:00)
[2020-04-26] MEDS: ASPIRIN 81 MG CHEWABLE TABLETS NGT SCH (11:00)
[2020-04-26] MEDS: FERROUS SO4 300 MG/5 ML ORAL SOLN UNIT DOSE CUPS NGT SCH (11:01)
[2020-04-26] MEDS: AMINO ACIDS/PROTEIN HYDROLYS 30 ML LIQUID.PKT PEG SCH (11:01)
[2020-04-26] MEDS: PANTOPRAZOLE SODIUM 40 MG VIAL IVPUSH SCH (11:01)
[2020-04-26] MEDS: lamoTRIgine 100 MG TABLET PO SCH ×2 (11:01→23:10)
[2020-04-27] MEDS: LABETALOL HCL 100 MG TABLET (FP) NGT SCH ×2 (10:13→21:26)
[2020-04-27] MEDS: MULTIVITAMINS (DAILY MVI) TABLET (FP) PO SCH (10:13)
[2020-04-27] MEDS: amLODIPine BESYLATE 10 MG TABLET (FP) NGT SCH (10:14)
[2020-04-27] MEDS: ASPIRIN 81 MG CHEWABLE TABLETS NGT SCH (10:14)
[2020-04-27] MEDS: CLOPIDOGREL BISULFATE 75 MG TABLET (FP) NGT SCH (10:14)
[2020-04-27] MEDS: PANTOPRAZOLE SODIUM 40 MG VIAL IVPUSH SCH (10:14)
[2020-04-27] MEDS: predniSONE 20 MG TABLET (UD) PO SCH (10:14)
[2020-04-27] MEDS: FERROUS SO4 300 MG/5 ML ORAL SOLN UNIT DOSE CUPS NGT SCH (10:14)
[2020-04-27] MEDS: AMINO ACIDS/PROTEIN HYDROLYS 30 ML LIQUID.PKT PEG SCH (10:15)
[2020-04-27] MEDS: lamoTRIgine 100 MG TABLET PO SCH ×2 (10:15→21:27)
[2020-04-27 12:46] LABS: BASO % 0.3 % (0-2.0); EOS % 3.8 % (0-4.5); HEMATOCRIT 30.7 % (35.4-49); HEMOGLOBIN 10.2 GM/dL (11.7-16.9); LYMPH % 11.7 % (8-40); MCH 28.6 pg (25.7-33.7); MCHC 33.3 g/dl (32.0-35.9); MEAN CELL VOLUME 85.8 fl (80-96); MEAN PLT VOLUME 8.7 fl (7.5-11.1); MONO % 9.5 % (3.8-10.2); NEUT % 74.7 % (42.8-82.8); PLATELET COUNT 318 K/MM3 (134-434); RBC 3.58 M/mm3 (4.00-5.60); RDW 17.5 % (11.9-15.9); WHITE BLOOD COUNT 9.4 K/mm3 (4.0-10.0)
[2020-04-27 13:06] LABS: POTASSIUM 4.6 mmol/L (3.5-5.1)
[2020-04-27 13:12] LABS: CALCIUM 8.1 mg/dL (8.5-10.1)
[2020-04-27 13:13] LABS: ALBUMIN 1.8 g/dl (3.4-5.0)
[2020-04-27 13:15] LABS: BILIRUBIN,TOTAL 0.4 mg/dL (0.2-1); TOT PROT 5.8 g/dl (6.4-8.2)
[2020-04-27 13:20] LABS: BLOOD UREA NITROGEN 34.5 mg/dL (7-18)
[2020-04-28] MEDS: AMINO ACIDS/PROTEIN HYDROLYS 30 ML LIQUID.PKT PEG SCH (08:44)
[2020-04-28] MEDS: FERROUS SO4 300 MG/5 ML ORAL SOLN UNIT DOSE CUPS NGT SCH (09:21)
[2020-04-28] MEDS: lamoTRIgine 100 MG TABLET PO SCH ×2 (09:21→22:59)
[2020-04-28] MEDS: MULTIVITAMINS (DAILY MVI) TABLET (FP) PO SCH (09:21)
[2020-04-28] MEDS: CLOPIDOGREL BISULFATE 75 MG TABLET (FP) NGT SCH (09:22)
[2020-04-28] MEDS: LABETALOL HCL 100 MG TABLET (FP) NGT SCH ×2 (09:22→22:59)
[2020-04-28] MEDS: predniSONE 20 MG TABLET (UD) PO SCH (09:22)
[2020-04-28] MEDS: ASPIRIN 81 MG CHEWABLE TABLETS NGT SCH (09:23)
[2020-04-28] MEDS: amLODIPine BESYLATE 10 MG TABLET (FP) NGT SCH (09:23)
[2020-04-28] MEDS: PANTOPRAZOLE SODIUM 40 MG VIAL IVPUSH SCH (09:27)
[2020-04-28 11:24] LABS: BASO % 0.2 % (0-2.0); EOS % 2.5 % (0-4.5); HEMATOCRIT 29.1 % (35.4-49); HEMOGLOBIN 9.7 GM/dL (11.7-16.9); LYMPH % 12.2 % (8-40); MCH 28.5 pg (25.7-33.7); MCHC 33.4 g/dl (32.0-35.9); MEAN CELL VOLUME 85.5 fl (80-96); MEAN PLT VOLUME 8.3 fl (7.5-11.1); MONO % 8.4 % (3.8-10.2); NEUT % 76.7 % (42.8-82.8); PLATELET COUNT 338 K/MM3 (134-434); RDW 17.6 % (11.9-15.9); WHITE BLOOD COUNT 9.5 K/mm3 (4.0-10.0)
[2020-04-28 11:42] LABS: POTASSIUM 4.4 mmol/L (3.5-5.1)
[2020-04-28 11:46] LABS: ALBUMIN 1.8 g/dl (3.4-5.0); BLOOD UREA NITROGEN 36.8 mg/dL (7-18)
[2020-04-28 11:49] LABS: CREATININE 1.1 mg/dL (0.55-1.3)
[2020-04-28 11:50] LABS: BILIRUBIN,TOTAL 0.8 mg/dL (0.2-1); TOT PROT 5.6 g/dl (6.4-8.2)
[2020-04-29 09:43] LABS: BASO % 0.3 % (0-2.0); EOS % 2.2 % (0-4.5); HEMATOCRIT 31.2 % (35.4-49); HEMOGLOBIN 10.2 GM/dL (11.7-16.9); LYMPH % 12.3 % (8-40); MCH 28.1 pg (25.7-33.7); MCHC 32.8 g/dl (32.0-35.9); MEAN CELL VOLUME 85.8 fl (80-96); MEAN PLT VOLUME 8.5 fl (7.5-11.1); MONO % 7.7 % (3.8-10.2); NEUT % 77.5 % (42.8-82.8); PLATELET COUNT 352 K/MM3 (134-434); RBC 3.64 M/mm3 (4.00-5.60); RDW 17.9 % (11.9-15.9); WHITE BLOOD COUNT 9.8 K/mm3 (4.0-10.0)
[2020-04-29 10:00] LABS: POTASSIUM 4.3 mmol/L (3.5-5.1)
[2020-04-29] MEDS: AMINO ACIDS/PROTEIN HYDROLYS 30 ML LIQUID.PKT PEG SCH (10:08)
[2020-04-29] MEDS: predniSONE 20 MG TABLET (UD) PO SCH (10:08)
[2020-04-29] MEDS: ASPIRIN 81 MG CHEWABLE TABLETS NGT SCH (10:08)
[2020-04-29] MEDS: MULTIVITAMINS (DAILY MVI) TABLET (FP) PO SCH (10:08)
[2020-04-29] MEDS: amLODIPine BESYLATE 10 MG TABLET (FP) NGT SCH (10:08)
[2020-04-29] MEDS: PANTOPRAZOLE SODIUM 40 MG VIAL IVPUSH SCH (10:09)
[2020-04-29] MEDS: LABETALOL HCL 100 MG TABLET (FP) NGT SCH ×2 (10:09→22:04)
[2020-04-29] MEDS: lamoTRIgine 100 MG TABLET PO SCH ×2 (10:09→22:04)
[2020-04-29] MEDS: FERROUS SO4 300 MG/5 ML ORAL SOLN UNIT DOSE CUPS NGT SCH (10:09)
[2020-04-29] MEDS: CLOPIDOGREL BISULFATE 75 MG TABLET (FP) NGT SCH (10:09)
[2020-04-29 10:30] LABS: BLOOD UREA NITROGEN 35.1 mg/dL (7-18)
[2020-04-29 10:31] LABS: ALBUMIN 1.9 g/dl (3.4-5.0); BILIRUBIN,TOTAL 0.8 mg/dL (0.2-1); CALCIUM 8.2 mg/dL (8.5-10.1); TOT PROT 5.8 g/dl (6.4-8.2)
[2020-04-29 10:41] LABS: ANISOCYTOSIS 1+; MACROCYTOSIS 0; PLATELET ESTIMATE NORMAL
[2020-04-29] MEDS ORDERED: PT OWN MED DRAWER 7, Y5N ONE (21:57)
[2020-04-29] MEDS ORDERED: FAMOTIDINE 40 MG/5 ML ORAL SUSPENSION PEG SCH (22:00)
[2020-04-30] MEDS: AMINO ACIDS/PROTEIN HYDROLYS 30 ML LIQUID.PKT PEG SCH (08:52)
[2020-04-30] MEDS: CLOPIDOGREL BISULFATE 75 MG TABLET (FP) NGT SCH (09:00)
[2020-04-30] MEDS: LABETALOL HCL 100 MG TABLET (FP) NGT SCH (09:00)
[2020-04-30] MEDS: MULTIVITAMINS (DAILY MVI) TABLET (FP) PO SCH (09:00)
[2020-04-30] MEDS: amLODIPine BESYLATE 10 MG TABLET (FP) NGT SCH (09:00)
[2020-04-30] MEDS: predniSONE 20 MG TABLET (UD) PO SCH (09:00)
[2020-04-30] MEDS: lamoTRIgine 100 MG TABLET PO SCH (09:00)
[2020-04-30] MEDS: FERROUS SO4 300 MG/5 ML ORAL SOLN UNIT DOSE CUPS NGT SCH (09:00)
[2020-04-30] MEDS: ASPIRIN 81 MG CHEWABLE TABLETS NGT SCH (09:01)
[2020-04-30] MEDS ORDERED: PANTOPRAZOLE SODIUM 40 MG VIAL IVPUSH SCH (10:00)
[2020-04-30 15:48] VITALS: BP 147/84; PULSE 84; TEMP 99.3
== END 2020-04-30 17:13 | DRG 64 ==
LOC: JER 14:12 → JERBED 17:03 → J4S 20:27 → J5S 04-24 15:26
PROVIDERS: ADMIT Family Medicine; ATTEND Family Medicine
PROC: 4A10X4Z Monitoring of Central Nervous Electrical Activity, External Approach (ICD-10-PCS; 2020-03-25)
PROC: 05HQ33Z Insertion of Infusion Device into Left External Jugular Vein, Percutaneous Approach (ICD-10-PCS; 2020-04-03)
PROC: 4A10X4Z Monitoring of Central Nervous Electrical Activity, External Approach (ICD-10-PCS; 2020-04-03)
PROC: 0DH63UZ Insertion of Feeding Device into Stomach, Percutaneous Approach (ICD-10-PCS; 2020-04-09)
PROC: BD12ZZZ Fluoroscopy of Stomach (ICD-10-PCS; 2020-04-09)
PROC: 0DH67UZ Insertion of Feeding Device into Stomach, Via Natural or Artificial Opening (ICD-10-PCS; principal; 2020-04-16)
PROC: 009U3ZX Drainage of Spinal Canal, Percutaneous Approach, Diagnostic (ICD-10-PCS; 2020-04-16)
PROC: B01BZZZ Fluoroscopy of Spinal Cord (ICD-10-PCS; 2020-04-16)
PROC: 30233N1 Transfusion of Nonautologous Red Blood Cells into Peripheral Vein, Percutaneous Approach (ICD-10-PCS; 2020-04-19)
DX: I63.9 Cerebral infarction, unspecified (principal); G93.41 Metabolic encephalopathy; J69.0 Pneumonitis due to inhalation of food and vomit; G81.94 Hemiplegia, unspecified affecting left nondominant side; N17.9 Acute kidney failure, unspecified; E87.0 Hyperosmolality and hypernatremia; I24.8 Other forms of acute ischemic heart disease; A04.72 Enterocolitis due to Clostridium difficile, not specified as recurrent; R29.726 NIHSS score 26; E78.5 Hyperlipidemia, unspecified; N40.0 Benign prostatic hyperplasia without lower urinary tract symptoms; R77.8 Other specified abnormalities of plasma proteins; E87.6 Hypokalemia; R74.01 Elevation of levels of liver transaminase levels; D50.0 Iron deficiency anemia secondary to blood loss (chronic); L89.312 Pressure ulcer of right buttock, stage 2; L89.322 Pressure ulcer of left buttock, stage 2; R13.10 Dysphagia, unspecified; I12.9 Hypertensive chronic kidney disease with stage 1 through stage 4 chronic kidney disease, or unspecified chronic kidney disease; N18.30 Chronic kidney disease, stage 3 unspecified; E66.9 Obesity, unspecified; Z68.32 Body mass index [BMI] 32.0-32.9, adult; R50.9 Fever, unspecified; R79.89 Other specified abnormal findings of blood chemistry; D64.9 Anemia, unspecified; G40.909 Epilepsy, unspecified, not intractable, without status epilepticus; R94.5 Abnormal results of liver function studies; K76.0 Fatty (change of) liver, not elsewhere classified; R00.0 Tachycardia, unspecified; R33.9 Retention of urine, unspecified
CPT/HCPCS: 36415; 36430; 49440; 62272; 70450-TC; 70551-TC; 71045-TC-FY; 71250-TC; 74018-TC-FY; 74176-TC; 74181-TC; 76700-TC; 76705-TC; 76856-TC; 80048; 80053; 80061; 80076; 81003; 82150; 82272; 82436; 82550; 82553; 82565; 82728; 82945; 82962; 82977; 83036; 83516; 83520; 83540; 83550; 83605; 83690; 83721; 83735; 83880; 84100; 84155; 84156; 84157; 84165; 84166; 84300; 84443; 84484; 84550; 85025; 85027; 85610; 85651; 85730; 86038; 86140; 86162; 86225; 86256; 86480; 86592; 86617; 86704; 86706; 86707; 86708; 86709; 86777; 86803; 86850; 86900; 86901; 86922; 87040; 87070; 87086; 87102; 87116; 87186; 87205; 87206; 87210; 87324; 87340; 87389; 87449; 87899; 93005; 93010; 93225; 93226; 93970-TC; 95816; 97161-GP; 99285-25; C9803; J0131; J1644; P9038; P9058; U0003

== ENCOUNTER 2020-05-05 18:55 | Inpatient (IN) | payer OTHER ==
[2020-05-05 21:06] LABS: BASO % 0.6 % (0-2.0); EOS % 0.5 % (0-4.5); HEMATOCRIT 32.5 % (35.4-49); HEMOGLOBIN 10.6 GM/dL (11.7-16.9); LYMPH % 5.6 % (8-40); MCH 28.1 pg (25.7-33.7); MCHC 32.5 g/dl (32.0-35.9); MEAN CELL VOLUME 86.4 fl (80-96); MEAN PLT VOLUME 8.6 fl (7.5-11.1); MONO % 4.2 % (3.8-10.2); NEUT % 89.1 % (42.8-82.8); PLATELET COUNT 276 K/MM3 (134-434); RBC 3.76 M/mm3 (4.00-5.60); RDW 19.1 % (11.9-15.9); WHITE BLOOD COUNT 14.5 K/mm3 (4.0-10.0)
[2020-05-05 21:07] LABS: POTASSIUM 4.4 mmol/L (3.5-5.1)
[2020-05-05 21:10] LABS: CALCIUM 8.3 mg/dL (8.5-10.1)
[2020-05-05 21:11] LABS: BLOOD UREA NITROGEN 42.6 mg/dL (7-18); MAGNESIUM 2.2 mg/dL (1.8-2.4)
[2020-05-05 21:13] LABS: CREATININE 1.2 mg/dL (0.55-1.3); INR 0.98 (0.83-1.09); PHOSPHOROUS 3.2 mg/dL (2.5-4.9); PROTHROMBIN TIME (PATIENT) 11.9 SEC (9.7-13.0)
[2020-05-05 21:15] LABS: TOT PROT 6.2 g/dl (6.4-8.2)
[2020-05-05 21:16] LABS: ACTIVATED PTT 20.4 SECONDS (25.2-36.5); BILIRUBIN,TOTAL 0.6 mg/dL (0.2-1)
[2020-05-05 21:19] LABS: N-TERMINAL BNP 694.3 pg/ml (5-450)
[2020-05-05 21:49] LABS: EPI CELLS 3 /uL (0-25.1); HYALINE CASTS 11 /uL (0-3.1); PH,URINE 5.5 (5.0-8.0); URINE APPEARANCE CLOUDY; URINE BACTERIA 836 /uL (0-1359); URINE BILIRUBIN NEGATIVE (NEGATIVE); URINE COLOR DK YELLOW; URINE GLUCOSE (UA) NEGATIVE (NEGATIVE); URINE KETONE TRACE (NEGATIVE); URINE LEUK ESTERASE 2+ (NEGATIVE); URINE NITRITE POSITIVE (NEGATIVE); URINE PROTEIN 1+ (NEGATIVE); URINE WBC 275 /uL (0-25.8)
[2020-05-05 22:06] LABS: URINE RBC 37.8 /uL (0-23.9)
[2020-05-05 22:12] LABS: YEAST FEW (NEGATIVE)
[2020-05-06] MEDS ORDERED: LINEZOLID 600 MG PREMIX BAG 600 MG/300 ML BAG IVPB SCH (02:00)
[2020-05-06] MEDS ORDERED: ACETAMINOPHEN 650 MG/20.3 ML ORAL SOLUTION (CUPS) PO PRN (05:49)
[2020-05-06 07:11] LABS: CALCIUM 8.4 mg/dL (8.5-10.1); POTASSIUM 4.2 mmol/L (3.5-5.1)
[2020-05-06 07:15] LABS: ALBUMIN 1.9 g/dl (3.4-5.0); BLOOD UREA NITROGEN 42.7 mg/dL (7-18); MAGNESIUM 2.1 mg/dL (1.8-2.4)
[2020-05-06 07:17] LABS: CREATININE 1.2 mg/dL (0.55-1.3)
[2020-05-06 07:18] LABS: BILIRUBIN,TOTAL 0.8 mg/dL (0.2-1); TOT PROT 5.8 g/dl (6.4-8.2)
[2020-05-06] MEDS ORDERED: FINASTERIDE 5 MG TABLET (FP) PO SCH (10:00)
[2020-05-06] MEDS ORDERED: TAMSULOSIN HCL 0.4 MG CAP PO SCH (10:00)
[2020-05-06] MEDS: ASPIRIN 81 MG CHEWABLE TABLETS GT SCH (11:07)
[2020-05-06] MEDS ORDERED: ASPIRIN 81 MG CHEWABLE TABLETS ONE (11:56)
[2020-05-06] MEDS ORDERED: predniSONE 20 MG TABLET (UD) ONE (11:56)
[2020-05-06] MEDS ORDERED: lamoTRIgine 100 MG TABLET ONE (11:57)
[2020-05-06] MEDS ORDERED: FAMOTIDINE 20 MG TABLET ONE (11:57)
[2020-05-06] MEDS ORDERED: ENOXAPARIN NA (PORCINE) 40 MG/0.4 ML DISP.SYRIN SQ ONE (11:57)
[2020-05-06] MEDS ORDERED: CLOPIDOGREL BISULFATE 75 MG TABLET (FP) ONE (11:57)
[2020-05-06] MEDS: INSULIN SLIDING SCALE (NOVOLOG) 1 VIAL SQ SCH ×4 (12:06→22:29)
[2020-05-06] MEDS: predniSONE 20 MG TABLET (UD) GT SCH (12:07)
[2020-05-06] MEDS: ENOXAPARIN NA (PORCINE) 40 MG/0.4 ML DISP.SYRIN SQ SCH (12:08)
[2020-05-06] MEDS: FAMOTIDINE 40 MG/5 ML ORAL SUSPENSION NGT SCH ×2 (12:08→22:39)
[2020-05-06] MEDS: CLOPIDOGREL BISULFATE 75 MG TABLET (FP) GT SCH (12:08)
[2020-05-06] MEDS: lamoTRIgine 100 MG TABLET GT SCH ×2 (12:08→22:38)
[2020-05-06] MEDS: MULTIVIT-MINERALS ORAL LIQUID GT SCH (16:17)
[2020-05-06] MEDS: ATORVASTATIN CA 80 MG TABLET (FP) GT SCH (22:26)
[2020-05-06] MEDS: DONEPEZIL HCL 5 MG TABLET (FP) GT SCH (22:26)
[2020-05-07] MEDS ORDERED: LINEZOLID 600 MG PREMIX BAG 600 MG/300 ML BAG IVPB SCH (03:00)
[2020-05-07] MEDS: INSULIN SLIDING SCALE (NOVOLOG) 1 VIAL SQ SCH ×4 (07:06→22:31)
[2020-05-07] MEDS ORDERED: PT OWN MED DRAWER 7, Y5N ONE ×3 (08:44→22:26)
[2020-05-07] MEDS: FAMOTIDINE 40 MG/5 ML ORAL SUSPENSION NGT SCH ×2 (09:48→22:31)
[2020-05-07] MEDS: MULTIVIT-MINERALS ORAL LIQUID GT SCH (09:49)
[2020-05-07] MEDS: predniSONE 20 MG TABLET (UD) GT SCH (09:49)
[2020-05-07] MEDS: ASPIRIN 81 MG CHEWABLE TABLETS GT SCH (09:49)
[2020-05-07] MEDS: lamoTRIgine 100 MG TABLET GT SCH ×2 (09:49→22:30)
[2020-05-07] MEDS: CLOPIDOGREL BISULFATE 75 MG TABLET (FP) GT SCH (09:49)
[2020-05-07] MEDS: ENOXAPARIN NA (PORCINE) 40 MG/0.4 ML DISP.SYRIN SQ SCH (09:49)
[2020-05-07] MEDS ORDERED: VANCOMYCIN 1 GRAM (PRE-DOCKED) 1,000 MG/250 ML BAG IVPB ONE (10:00)
[2020-05-07] MEDS ORDERED: ACETAMINOPHEN 650 MG/20.3 ML ORAL SOLUTION (CUPS) PO PRN (11:42)
[2020-05-07 18:36] VITALS: BMI 30.2
[2020-05-07] MEDS: ATORVASTATIN CA 80 MG TABLET (FP) GT SCH (22:30)
[2020-05-07] MEDS: DONEPEZIL HCL 5 MG TABLET (FP) GT SCH (22:30)
[2020-05-08] MEDS: INSULIN SLIDING SCALE (NOVOLOG) 1 VIAL SQ SCH ×3 (07:18→21:43)
[2020-05-08 07:36] LABS: BASO % 0.2 % (0-2.0); EOS % 0.4 % (0-4.5); HEMATOCRIT 27.1 % (35.4-49); HEMOGLOBIN 8.8 GM/dL (11.7-16.9); LYMPH % 9.3 % (8-40); MCHC 32.4 g/dl (32.0-35.9); MEAN CELL VOLUME 86.2 fl (80-96); MEAN PLT VOLUME 8.4 fl (7.5-11.1); MONO % 5.7 % (3.8-10.2); NEUT % 84.4 % (42.8-82.8); PLATELET COUNT 245 K/MM3 (134-434); RBC 3.14 M/mm3 (4.00-5.60); RDW 18.7 % (11.9-15.9); WHITE BLOOD COUNT 10.2 K/mm3 (4.0-10.0)
[2020-05-08 07:54] LABS: POTASSIUM 3.9 mmol/L (3.5-5.1)
[2020-05-08 07:58] LABS: CALCIUM 8.1 mg/dL (8.5-10.1)
[2020-05-08 07:59] LABS: BLOOD UREA NITROGEN 37.7 mg/dL (7-18)
[2020-05-08 08:03] LABS: TOT PROT 5.7 g/dl (6.4-8.2)
[2020-05-08] MEDS: ENOXAPARIN NA (PORCINE) 40 MG/0.4 ML DISP.SYRIN SQ SCH (10:07)
[2020-05-08] MEDS: predniSONE 20 MG TABLET (UD) GT SCH (10:07)
[2020-05-08] MEDS: MULTIVIT-MINERALS ORAL LIQUID GT SCH (10:08)
[2020-05-08] MEDS: lamoTRIgine 100 MG TABLET GT SCH ×2 (10:08→21:26)
[2020-05-08] MEDS: CLOPIDOGREL BISULFATE 75 MG TABLET (FP) GT SCH (10:08)
[2020-05-08] MEDS: ASPIRIN 81 MG CHEWABLE TABLETS GT SCH (10:08)
[2020-05-08] MEDS: FAMOTIDINE 40 MG/5 ML ORAL SUSPENSION NGT SCH ×2 (11:44→21:26)
[2020-05-08] MEDS ORDERED: PT OWN MED DRAWER 7, Y5N ONE (12:10)
[2020-05-08] MEDS: ATORVASTATIN CA 80 MG TABLET (FP) GT SCH (21:26)
[2020-05-08] MEDS: DONEPEZIL HCL 5 MG TABLET (FP) GT SCH (21:26)
[2020-05-09] MEDS: INSULIN SLIDING SCALE (NOVOLOG) 1 VIAL SQ SCH ×5 (06:09→21:42)
[2020-05-09] MEDS ORDERED: PT OWN MED DRAWER 7, Y5N ONE ×3 (09:30→22:26)
[2020-05-09] MEDS: ASPIRIN 81 MG CHEWABLE TABLETS GT SCH (09:47)
[2020-05-09] MEDS: CLOPIDOGREL BISULFATE 75 MG TABLET (FP) GT SCH (09:47)
[2020-05-09] MEDS: predniSONE 20 MG TABLET (UD) GT SCH (09:47)
[2020-05-09] MEDS: ENOXAPARIN NA (PORCINE) 40 MG/0.4 ML DISP.SYRIN SQ SCH (09:47)
[2020-05-09] MEDS: lamoTRIgine 100 MG TABLET GT SCH ×2 (09:48→21:29)
[2020-05-09] MEDS: MULTIVIT-MINERALS ORAL LIQUID GT SCH (09:48)
[2020-05-09] MEDS: TAMSULOSIN HCL 0.4 MG CAP PO SCH (09:48)
[2020-05-09] MEDS: FAMOTIDINE 40 MG/5 ML ORAL SUSPENSION NGT SCH ×2 (12:05→22:27)
[2020-05-09] MEDS: ATORVASTATIN CA 80 MG TABLET (FP) GT SCH (21:29)
[2020-05-09] MEDS: DONEPEZIL HCL 5 MG TABLET (FP) GT SCH (21:29)
[2020-05-10] MEDS: INSULIN SLIDING SCALE (NOVOLOG) 1 VIAL SQ SCH ×3 (06:24→16:18)
[2020-05-10] MEDS: TAMSULOSIN HCL 0.4 MG CAP PO SCH (09:38)
[2020-05-10] MEDS: CLOPIDOGREL BISULFATE 75 MG TABLET (FP) GT SCH (09:38)
[2020-05-10] MEDS: predniSONE 20 MG TABLET (UD) GT SCH (09:38)
[2020-05-10] MEDS: ASPIRIN 81 MG CHEWABLE TABLETS GT SCH (09:38)
[2020-05-10] MEDS: ENOXAPARIN NA (PORCINE) 40 MG/0.4 ML DISP.SYRIN SQ SCH (09:39)
[2020-05-10] MEDS: FAMOTIDINE 40 MG/5 ML ORAL SUSPENSION NGT SCH (09:39)
[2020-05-10] MEDS ORDERED: PT OWN MED DRAWER 7, Y5N ONE ×2 (10:55→11:03)
[2020-05-10] MEDS: MULTIVIT-MINERALS ORAL LIQUID GT SCH (11:06)
[2020-05-10] MEDS: lamoTRIgine 100 MG TABLET GT SCH (11:06)
[2020-05-10 11:45] LABS: HEMATOCRIT 29.9 % (35.4-49); HEMOGLOBIN 9.8 GM/dL (11.7-16.9); MCH 27.8 pg (25.7-33.7); MCHC 32.6 g/dl (32.0-35.9); MEAN CELL VOLUME 85.3 fl (80-96); MEAN PLT VOLUME 8.2 fl (7.5-11.1); PLATELET COUNT 213 K/MM3 (134-434); RDW 18.5 % (11.9-15.9)
[2020-05-10 17:52] VITALS: BP 149/90; PULSE 98; TEMP 99
== END 2020-05-10 18:00 | DRG 689 ==
LOC: JER 18:55 → JERBED 22:31 → J4W 05-06 17:58
PROVIDERS: ADMIT Internal Medicine; ATTEND Family Medicine
PROC: 3E0G76Z Introduction of Nutritional Substance into Upper GI, Via Natural or Artificial Opening (ICD-10-PCS; principal; 2020-05-05)
DX: N39.0 Urinary tract infection, site not specified (principal); G93.41 Metabolic encephalopathy; I69.354 Hemiplegia and hemiparesis following cerebral infarction affecting left non-dominant side; J90 Pleural effusion, not elsewhere classified; R78.81 Bacteremia; I10 Essential (primary) hypertension; E78.5 Hyperlipidemia, unspecified; F03.90 Unspecified dementia, unspecified severity, without behavioral disturbance, psychotic disturbance, mood disturbance, and anxiety; R73.03 Prediabetes; D64.9 Anemia, unspecified; R74.01 Elevation of levels of liver transaminase levels; E03.9 Hypothyroidism, unspecified; Z93.1 Gastrostomy status; R53.83 Other fatigue; L89.152 Pressure ulcer of sacral region, stage 2
CPT/HCPCS: 36415; 70450-TC; 71045-TC-FY; 80053; 81003; 82140; 82550; 82553; 82962; 83605; 83735; 83880; 84100; 84436; 84443; 84479; 84484; 85025; 85027; 85610; 85651; 85730; 86140; 87040; 87086; 87186; 93005; 93010; 97161-GP; 99285-25; C9803; U0003

== ENCOUNTER 2020-06-01 17:58 | Inpatient (IN) | payer OTHER ==
[2020-06-01] MEDS ORDERED: LACTATED RINGERS SOLUTION 1000 ML INFUS.BAG IV ONE (18:36)
[2020-06-01 19:35] LABS: VENOUS BASE EXCESS 2.9 mmol/L (-2-2); VENOUS O2 SATURATION 47.4 % (70-80); VENOUS PCO2 46.3 mmHg (38-52); VENOUS PH 7.402 (7.310-7.410)
[2020-06-01 19:39] LABS: BASO % 0.4 % (0-2.0); EOS % 0.3 % (0-4.5); HEMATOCRIT 32.8 % (35.4-49); HEMOGLOBIN 10.2 GM/dL (11.7-16.9); LYMPH % 12.8 % (8-40); MCH 26.5 pg (25.7-33.7); MCHC 31.2 g/dl (32.0-35.9); MEAN CELL VOLUME 84.9 fl (80-96); MEAN PLT VOLUME 8.7 fl (7.5-11.1); MONO % 4.4 % (3.8-10.2); NEUT % 82.1 % (42.8-82.8); PLATELET COUNT 372 K/MM3 (134-434); RBC 3.86 M/mm3 (4.00-5.60); RDW 21.3 % (11.9-15.9); WHITE BLOOD COUNT 11.5 K/mm3 (4.0-10.0)
[2020-06-01 19:48] LABS: INR 1.1 (0.83-1.09); PROTHROMBIN TIME (PATIENT) 13.3 SEC (9.7-13.0)
[2020-06-01 19:51] LABS: ACTIVATED PTT 30.4 SECONDS (25.2-36.5)
[2020-06-01 20:03] LABS: POTASSIUM 3.9 mmol/L (3.5-5.1)
[2020-06-01 20:05] LABS: CALCIUM 9.6 mg/dL (8.5-10.1)
[2020-06-01 20:06] LABS: ALBUMIN 2.6 g/dl (3.4-5.0); BLOOD UREA NITROGEN 23.6 mg/dL (7-18)
[2020-06-01 20:09] LABS: CREATININE 0.9 mg/dL (0.55-1.3)
[2020-06-01 20:30] LABS: LACTIC ACID 2.2 mmol/L (0.4-2.0)
[2020-06-01 20:44] LABS: ANISOCYTOSIS 2+; MACROCYTOSIS 0; PLATELET ESTIMATE NORMAL; TARGET CELLS 1+
[2020-06-01 23:27] LABS: EPI CELLS 2 /uL (0-25.1); HYALINE CASTS 1 /uL (0-3.1); PH,URINE 8.5 (5.0-8.0); URINE APPEARANCE CLOUDY; URINE BACTERIA >9,000 /uL (0-1359); URINE BILIRUBIN NEGATIVE (NEGATIVE); URINE COLOR YELLOW; URINE GLUCOSE (UA) NEGATIVE (NEGATIVE); URINE KETONE NEGATIVE (NEGATIVE); URINE LEUK ESTERASE 3+ (NEGATIVE); URINE NITRITE POSITIVE (NEGATIVE); URINE PROTEIN 1+ (NEGATIVE); URINE RBC 23 /uL (0-23.9); URINE WBC 1416 /uL (0-25.8)
[2020-06-02] MEDS ORDERED: PIPERACILLIN/TAZOB 3.375 GM 3.375 GM in DEXTROSE 5%-WATER - 50 ML IVPB ONE (00:02)
[2020-06-02] MEDS ORDERED: PIPERACILLIN/TAZOB 3.375 GM 3.375 GM/50 ML BAG IVPB ONE ×2 (02:05→11:05)
[2020-06-02] MEDS ORDERED: VANCOMYCIN 1 GM in D5W (PRE-DOCKED) 1,000 MG/250 ML IVPB ONE (03:07)
[2020-06-02] MEDS ORDERED: VANCOMYCIN 1 GRAM (PRE-DOCKED) 1,000 MG/250 ML BAG IVPB ONE (04:55)
[2020-06-02] MEDS: HEPARIN NA (PORCINE) 5,000 UNITS/ML 1ML VIAL SQ SCH ×2 (11:05→21:11)
[2020-06-02] MEDS: PIPERACILLIN/TAZOB 3.375 GM 3.375 GM in DEXTROSE 5%-WATER - 50 ML IVPB SCH ×2 (11:05→17:04)
[2020-06-02] MEDS ORDERED: HEPARIN NA (PORCINE) 5,000 UNITS/ML 1ML VIAL ONE (11:05)
[2020-06-02] MEDS ORDERED: METOPROLOL TARTRATE 5 MG/5 ML VIAL IVPUSH PRN (13:22)
[2020-06-02] MEDS ORDERED: PIPERACILLIN/TAZOBACTAM 3.375 GM VIAL IVPB ONE (15:22)
[2020-06-02] MEDS ORDERED: DEXTROSE 5%-WATER - 50 ML IVPB ONE (15:22)
[2020-06-02] MEDS ORDERED: PIPERACILLIN/TAZOBACTAM 4.5 GM VIAL IVPB ONE (18:14)
[2020-06-02] MEDS ORDERED: DEXTROSE 5%-WATER 100 ML IVPB ONE (18:15)
[2020-06-02] MEDS: PIPERACILLIN/TAZOB 4.5 GM 4.5 GM in DEXTROSE 5%-WATER 100 ML IVPB SCH (18:17)
[2020-06-03] MEDS ORDERED: DEXTROSE 5%-WATER 100 ML IVPB ONE ×3 (00:45→16:57)
[2020-06-03] MEDS ORDERED: PIPERACILLIN/TAZOBACTAM 4.5 GM VIAL IVPB ONE ×3 (00:45→16:57)
[2020-06-03] MEDS: PIPERACILLIN/TAZOB 4.5 GM 4.5 GM in DEXTROSE 5%-WATER 100 ML IVPB SCH ×3 (01:53→17:27)
[2020-06-03] MEDS ORDERED: VANCOMYCIN 1 GRAM (PRE-DOCKED) 1,000 MG/250 ML BAG IVPB SCH (05:00)
[2020-06-03 09:07] LABS: HEMATOCRIT 26.9 % (35.4-49); HEMOGLOBIN 8.5 GM/dL (11.7-16.9); MCH 26.7 pg (25.7-33.7); MCHC 31.6 g/dl (32.0-35.9); MEAN CELL VOLUME 84.4 fl (80-96); MEAN PLT VOLUME 8.8 fl (7.5-11.1); PLATELET COUNT 300 K/MM3 (134-434); RBC 3.19 M/mm3 (4.00-5.60); RDW 21.4 % (11.9-15.9); WHITE BLOOD COUNT 9.4 K/mm3 (4.0-10.0)
[2020-06-03 09:43] LABS: POTASSIUM 3.8 mmol/L (3.5-5.1)
[2020-06-03 09:46] LABS: ALBUMIN 2.1 g/dl (3.4-5.0); CALCIUM 8.5 mg/dL (8.5-10.1)
[2020-06-03 09:51] LABS: BILIRUBIN,TOTAL 0.9 mg/dL (0.2-1)
[2020-06-03] MEDS ORDERED: PIPERACILLIN/TAZOB 3.375 GM 3.375 GM in DEXTROSE 5%-WATER - 50 ML IVPB SCH (10:00)
[2020-06-03] MEDS: HEPARIN NA (PORCINE) 5,000 UNITS/ML 1ML VIAL SQ SCH ×2 (11:00→21:18)
[2020-06-03] MEDS: AMINO ACIDS/PROTEIN HYDROLYS 30 ML LIQUID.PKT GT SCH ×2 (11:00→17:27)
[2020-06-03] MEDS ORDERED: ZINC SULFATE 220 MG TABLET GT SCH (13:30)
[2020-06-03] MEDS ORDERED: PT OWN MED DRAWER 7, Y5N ONE ×3 (14:36→20:42)
[2020-06-03] MEDS: predniSONE 10 MG TABLET (UD) GT SCH (14:40)
[2020-06-03] MEDS: ZINC SULFATE 220 MG CAPSULE (FP) GT SCH (14:40)
[2020-06-03] MEDS: ASPIRIN 81 MG CHEWABLE TABLETS GT SCH (14:40)
[2020-06-03] MEDS: CLOPIDOGREL BISULFATE 75 MG TABLET (FP) GT SCH (14:41)
[2020-06-03] MEDS: amLODIPine BESYLATE 10 MG TABLET (FP) GT SCH (14:41)
[2020-06-03] MEDS: METOPROLOL TARTRATE 25 MG TABLET (FP) GT SCH ×2 (14:41→21:13)
[2020-06-03] MEDS: FAMOTIDINE 40 MG/5 ML ORAL SUSPENSION NGT SCH ×2 (14:42→21:18)
[2020-06-03] MEDS: ASCORBIC ACID 500 MG/5 ML UNIT DOSE CUP GT SCH (14:42)
[2020-06-03] MEDS: lamoTRIgine 100 MG TABLET GT SCH ×2 (14:42→21:18)
[2020-06-03] MEDS: FERROUS SO4 300 MG/5 ML ORAL SOLN UNIT DOSE CUPS GT SCH ×2 (14:42→21:18)
[2020-06-03] MEDS: ATORVASTATIN CA 80 MG TABLET (FP) GT SCH (21:13)
[2020-06-04] MEDS ORDERED: DEXTROSE 5%-WATER 100 ML IVPB ONE ×3 (01:13→17:05)
[2020-06-04] MEDS ORDERED: PIPERACILLIN/TAZOBACTAM 4.5 GM VIAL IVPB ONE ×3 (01:13→17:05)
[2020-06-04] MEDS: PIPERACILLIN/TAZOB 4.5 GM 4.5 GM in DEXTROSE 5%-WATER 100 ML IVPB SCH ×3 (01:20→17:13)
[2020-06-04 07:09] LABS: BASO % 0.4 % (0-2.0); HEMOGLOBIN 8.3 GM/dL (11.7-16.9); LYMPH % 8.9 % (8-40); MCH 26.5 pg (25.7-33.7); MEAN CELL VOLUME 82.7 fl (80-96); MEAN PLT VOLUME 8.7 fl (7.5-11.1); MONO % 6.3 % (3.8-10.2); NEUT % 84.4 % (42.8-82.8); PLATELET COUNT 294 K/MM3 (134-434); RBC 3.15 M/mm3 (4.00-5.60); WHITE BLOOD COUNT 13.7 K/mm3 (4.0-10.0)
[2020-06-04 07:35] LABS: POTASSIUM 3.4 mmol/L (3.5-5.1)
[2020-06-04 07:37] LABS: BLOOD UREA NITROGEN 23.6 mg/dL (7-18); CALCIUM 8.3 mg/dL (8.5-10.1); MAGNESIUM 2.3 mg/dL (1.8-2.4)
[2020-06-04 07:42] LABS: PHOSPHOROUS 2.1 mg/dL (2.5-4.9)
[2020-06-04] MEDS ORDERED: POVIDONE-IODINE 10% SOLN 118 ML BOTTLE TP ONE (08:23)
[2020-06-04] MEDS ORDERED: PT OWN MED DRAWER 7, Y5N ONE ×4 (08:59→21:10)
[2020-06-04] MEDS: HEPARIN NA (PORCINE) 5,000 UNITS/ML 1ML VIAL SQ SCH ×2 (09:17→22:03)
[2020-06-04] MEDS: predniSONE 10 MG TABLET (UD) GT SCH (09:17)
[2020-06-04] MEDS: amLODIPine BESYLATE 10 MG TABLET (FP) GT SCH (09:18)
[2020-06-04] MEDS: METOPROLOL TARTRATE 25 MG TABLET (FP) GT SCH ×2 (09:18→22:01)
[2020-06-04] MEDS: ASPIRIN 81 MG CHEWABLE TABLETS GT SCH (09:18)
[2020-06-04] MEDS: AMINO ACIDS/PROTEIN HYDROLYS 30 ML LIQUID.PKT GT SCH ×2 (09:18→17:13)
[2020-06-04] MEDS: CLOPIDOGREL BISULFATE 75 MG TABLET (FP) GT SCH (09:18)
[2020-06-04] MEDS: ZINC SULFATE 220 MG CAPSULE (FP) GT SCH (09:18)
[2020-06-04] MEDS: ASCORBIC ACID 500 MG/5 ML UNIT DOSE CUP GT SCH (10:21)
[2020-06-04] MEDS: FAMOTIDINE 40 MG/5 ML ORAL SUSPENSION NGT SCH ×2 (10:21→22:03)
[2020-06-04] MEDS: lamoTRIgine 100 MG TABLET GT SCH ×2 (10:21→22:03)
[2020-06-04] MEDS: FERROUS SO4 300 MG/5 ML ORAL SOLN UNIT DOSE CUPS GT SCH ×2 (10:21→22:03)
[2020-06-04 12:40] VITALS: BMI 25.8
[2020-06-04] MEDS ORDERED: POTASSIUM CHLORIDE ORAL LIQUID 20 MEQ/15 ML PO ONE (13:15)
[2020-06-04] MEDS ORDERED: ACETAMINOPHEN 325 MG TABLET (FP) PO PRN (17:10)
[2020-06-04] MEDS: ATORVASTATIN CA 80 MG TABLET (FP) GT SCH (22:01)
[2020-06-05] MEDS: PIPERACILLIN/TAZOB 4.5 GM 4.5 GM in DEXTROSE 5%-WATER 100 ML IVPB SCH ×3 (03:40→17:27)
[2020-06-05] MEDS ORDERED: PIPERACILLIN/TAZOBACTAM 4.5 GM VIAL IVPB ONE ×3 (05:11→17:00)
[2020-06-05] MEDS ORDERED: DEXTROSE 5%-WATER 100 ML IVPB ONE ×3 (05:11→17:01)
[2020-06-05 07:36] LABS: BASO % 0.8 % (0-2.0); EOS % 0.3 % (0-4.5); HEMATOCRIT 26.1 % (35.4-49); HEMOGLOBIN 8.2 GM/dL (11.7-16.9); LYMPH % 10.3 % (8-40); MCH 26.3 pg (25.7-33.7); MCHC 31.2 g/dl (32.0-35.9); MEAN CELL VOLUME 84.4 fl (80-96); MEAN PLT VOLUME 9.1 fl (7.5-11.1); MONO % 5.2 % (3.8-10.2); NEUT % 83.4 % (42.8-82.8); PLATELET COUNT 276 K/MM3 (134-434); RDW 21.2 % (11.9-15.9); WHITE BLOOD COUNT 12.7 K/mm3 (4.0-10.0)
[2020-06-05 07:43] LABS: POTASSIUM 3.5 mmol/L (3.5-5.1)
[2020-06-05 07:49] LABS: ALBUMIN 1.9 g/dl (3.4-5.0); CALCIUM 8.4 mg/dL (8.5-10.1)
[2020-06-05 07:50] LABS: BLOOD UREA NITROGEN 26.1 mg/dL (7-18)
[2020-06-05 07:53] LABS: CREATININE 0.9 mg/dL (0.55-1.3)
[2020-06-05 07:55] LABS: BILIRUBIN,TOTAL 0.5 mg/dL (0.2-1); TOT PROT 5.9 g/dl (6.4-8.2)
[2020-06-05] MEDS ORDERED: PT OWN MED DRAWER 7, Y5N ONE ×2 (09:56→22:02)
[2020-06-05] MEDS: AMINO ACIDS/PROTEIN HYDROLYS 30 ML LIQUID.PKT GT SCH ×2 (10:40→17:27)
[2020-06-05] MEDS: ASCORBIC ACID 500 MG/5 ML UNIT DOSE CUP GT SCH (10:40)
[2020-06-05] MEDS: HEPARIN NA (PORCINE) 5,000 UNITS/ML 1ML VIAL SQ SCH ×2 (10:41→22:05)
[2020-06-05] MEDS: ZINC SULFATE 220 MG CAPSULE (FP) GT SCH (10:41)
[2020-06-05] MEDS: amLODIPine BESYLATE 10 MG TABLET (FP) GT SCH (10:41)
[2020-06-05] MEDS: predniSONE 10 MG TABLET (UD) GT SCH (10:41)
[2020-06-05] MEDS: CLOPIDOGREL BISULFATE 75 MG TABLET (FP) GT SCH (10:41)
[2020-06-05] MEDS: ASPIRIN 81 MG CHEWABLE TABLETS GT SCH (10:41)
[2020-06-05] MEDS: lamoTRIgine 100 MG TABLET GT SCH ×2 (10:41→22:06)
[2020-06-05] MEDS: METOPROLOL TARTRATE 25 MG TABLET (FP) GT SCH ×2 (10:41→22:05)
[2020-06-05] MEDS: FERROUS SO4 300 MG/5 ML ORAL SOLN UNIT DOSE CUPS GT SCH ×2 (10:41→22:05)
[2020-06-05] MEDS: FAMOTIDINE 40 MG/5 ML ORAL SUSPENSION NGT SCH ×2 (10:42→22:06)
[2020-06-05] MEDS: ATORVASTATIN CA 80 MG TABLET (FP) GT SCH (22:05)
[2020-06-06] MEDS: PIPERACILLIN/TAZOB 4.5 GM 4.5 GM in DEXTROSE 5%-WATER 100 ML IVPB SCH ×2 (04:30→11:10)
[2020-06-06] MEDS ORDERED: PIPERACILLIN/TAZOBACTAM 4.5 GM VIAL IVPB ONE ×2 (04:41→09:24)
[2020-06-06] MEDS ORDERED: DEXTROSE 5%-WATER 100 ML IVPB ONE ×2 (04:41→09:24)
[2020-06-06 07:41] LABS: BASO % 0.3 % (0-2.0); EOS % 0.9 % (0-4.5); HEMATOCRIT 25.8 % (35.4-49); HEMOGLOBIN 8.4 GM/dL (11.7-16.9); LYMPH % 12.3 % (8-40); MCHC 32.6 g/dl (32.0-35.9); MEAN CELL VOLUME 82.9 fl (80-96); MONO % 6.8 % (3.8-10.2); NEUT % 79.7 % (42.8-82.8); PLATELET COUNT 273 K/MM3 (134-434); RBC 3.11 M/mm3 (4.00-5.60); WHITE BLOOD COUNT 10.1 K/mm3 (4.0-10.0)
[2020-06-06 07:50] LABS: POTASSIUM 3.5 mmol/L (3.5-5.1)
[2020-06-06 07:59] LABS: CALCIUM 8.2 mg/dL (8.5-10.1)
[2020-06-06 08:00] LABS: BLOOD UREA NITROGEN 28.2 mg/dL (7-18)
[2020-06-06 08:03] LABS: CREATININE 0.9 mg/dL (0.55-1.3)
[2020-06-06 08:04] LABS: BILIRUBIN,TOTAL 1.1 mg/dL (0.2-1); TOT PROT 5.8 g/dl (6.4-8.2)
[2020-06-06 08:49] VITALS: PULSE 78
[2020-06-06] MEDS ORDERED: PT OWN MED DRAWER 7, Y5N ONE ×3 (09:23→11:02)
[2020-06-06] MEDS: FERROUS SO4 300 MG/5 ML ORAL SOLN UNIT DOSE CUPS GT SCH (11:08)
[2020-06-06] MEDS: HEPARIN NA (PORCINE) 5,000 UNITS/ML 1ML VIAL SQ SCH (11:08)
[2020-06-06] MEDS: ASPIRIN 81 MG CHEWABLE TABLETS GT SCH (11:08)
[2020-06-06] MEDS: AMINO ACIDS/PROTEIN HYDROLYS 30 ML LIQUID.PKT GT SCH (11:08)
[2020-06-06] MEDS: CLOPIDOGREL BISULFATE 75 MG TABLET (FP) GT SCH (11:08)
[2020-06-06] MEDS: amLODIPine BESYLATE 10 MG TABLET (FP) GT SCH (11:09)
[2020-06-06] MEDS: predniSONE 10 MG TABLET (UD) GT SCH (11:09)
[2020-06-06] MEDS: lamoTRIgine 100 MG TABLET GT SCH (11:09)
[2020-06-06] MEDS: ZINC SULFATE 220 MG CAPSULE (FP) GT SCH (11:09)
[2020-06-06] MEDS: METOPROLOL TARTRATE 25 MG TABLET (FP) GT SCH (11:09)
[2020-06-06] MEDS: FAMOTIDINE 40 MG/5 ML ORAL SUSPENSION NGT SCH (11:10)
[2020-06-06] MEDS: ASCORBIC ACID 500 MG/5 ML UNIT DOSE CUP GT SCH (11:10)
[2020-06-06 15:43] VITALS: BP 133/78; TEMP 98.6
== END 2020-06-06 16:49 | DRG 871 ==
LOC: JER 17:58 → JERBED 06-02 00:40 → J4W 06-02 12:30
PROVIDERS: ADMIT Internal Medicine; ATTEND Family Medicine
DX: A41.9 Sepsis, unspecified organism (principal); J69.0 Pneumonitis due to inhalation of food and vomit; J96.01 Acute respiratory failure with hypoxia; N39.0 Urinary tract infection, site not specified; K94.23 Gastrostomy malfunction; E87.2 Acidosis; I24.8 Other forms of acute ischemic heart disease; I69.354 Hemiplegia and hemiparesis following cerebral infarction affecting left non-dominant side; E87.0 Hyperosmolality and hypernatremia; L89.152 Pressure ulcer of sacral region, stage 2; R56.9 Unspecified convulsions; F03.90 Unspecified dementia, unspecified severity, without behavioral disturbance, psychotic disturbance, mood disturbance, and anxiety; E78.5 Hyperlipidemia, unspecified; D72.829 Elevated white blood cell count, unspecified; E11.9 Type 2 diabetes mellitus without complications; D64.9 Anemia, unspecified; N40.0 Benign prostatic hyperplasia without lower urinary tract symptoms; E03.9 Hypothyroidism, unspecified
CPT/HCPCS: 36415; 71045-TC-FY; 74018-TC-FY; 74177-TC; 80048; 80053; 81003; 82272; 82550; 82553; 82803; 83605; 83735; 84100; 84439; 84443; 84484; 85025; 85027; 85610; 85730; 87040; 87086; 87186; 87899; 93005; 93010; 93971; 97116-GP; 97162-GP; 99285-25; C9803; J1644; Q9967; U0003

== ENCOUNTER 2020-09-30 14:57 | Emergency (ER) | payer OTHER ==
[2020-09-30] MEDS ORDERED: IOHEXOL 180 MG/1 ML ML IT ONE (16:00)
[2020-09-30 16:08] VITALS: BMI 24.3
[2020-09-30 16:11] VITALS: TEMP 98.4
[2020-10-01 04:35] VITALS: BP 138/66; PULSE 85
== END 2020-10-01 04:36 | disposition home or self-care (01) ==
LOC: JER 14:57
DX: K94.23 Gastrostomy malfunction (principal); Z46.59 Encounter for fitting and adjustment of other gastrointestinal appliance and device
CPT/HCPCS: 74018-TC-FY; 99283-25

== ENCOUNTER 2020-10-02 11:58 | Emergency (ER) | payer OTHER ==
[2020-10-02 12:30] VITALS: TEMP 98.4; BMI 24.7
[2020-10-02 18:37] VITALS: BP 157/88; PULSE 93
== END 2020-10-02 20:20 ==
LOC: JER 11:58
DX: K94.23 Gastrostomy malfunction (principal)
CPT/HCPCS: 74018-TC-FY; 99284-25

== ENCOUNTER 2021-09-17 16:43 | Inpatient (IN) | payer OTHER ==
[2021-09-17] MEDS ORDERED: SODIUM CHLORIDE 2,028 ML IV ONE (18:07)
[2021-09-17] MEDS ORDERED: ACETAMINOPHEN 1000 MG/100 ML BAG IVPB ONE (18:09)
[2021-09-17] MEDS ORDERED: ACETAMINOPHEN INJECTION 100 ML IVPB ONE (18:55)
[2021-09-17 19:51] LABS: INR 1.05 (0.83-1.09); PROTHROMBIN TIME (PATIENT) 12.1 SEC (9.7-13.0)
[2021-09-17 19:53] LABS: HEMATOCRIT 36.7 % (35.4-49); MCH 28.3 pg (25.7-33.7); MCHC 32.8 g/dl (32.0-35.9); MEAN CELL VOLUME 86.5 fl (80-96); MEAN PLT VOLUME 8.5 fl (7.5-11.1); PLATELET COUNT 190 10^3/uL (134-434); RBC 4.24 M/mm3 (4.00-5.60); RDW 17.8 % (11.9-15.9); WHITE BLOOD COUNT 2.8 K/mm3 (4.0-10.0)
[2021-09-17 19:54] LABS: ACTIVATED PTT 25.3 SECONDS (25.2-36.5)
[2021-09-17 20:03] LABS: CHLORIDE 111 mmol/L (98-107); SODIUM 144 mmol/L (136-145)
[2021-09-17 20:05] LABS: CALCIUM 8.5 mg/dL (8.5-10.1)
[2021-09-17 20:06] LABS: ANION GAP 8 MMOL/L (8-16); BLOOD UREA NITROGEN 23.6 mg/dL (7-18); CO2 25 mmol/L (21-32); GLUCOSE,RANDOM 109 mg/dL (74-106)
[2021-09-17 20:09] LABS: CREATININE 1.2 mg/dL (0.55-1.3); SGOT/AST 28 U/L (15-37); SGPT/ALT 25 U/L (13-61)
[2021-09-17 20:11] LABS: BILIRUBIN,TOTAL 0.8 mg/dL (0.2-1); TOT PROT 6.2 g/dl (6.4-8.2)
[2021-09-17 20:12] LABS: ALK PHOS 88 U/L (45-117)
[2021-09-17 20:56] LABS: ANISOCYTOSIS 1+; MACROCYTOSIS 0
[2021-09-17 23:42] LABS: EPI CELLS >36 /uL (0-25.1); HYALINE CASTS 34 /uL (0-3.1); URINE APPEARANCE TURBID; URINE BACTERIA >9,000 /uL (0-1359); URINE BILIRUBIN 1+ (NEGATIVE); URINE COLOR DK YELLOW; URINE GLUCOSE (UA) NEGATIVE (NEGATIVE); URINE KETONE TRACE (NEGATIVE); URINE LEUK ESTERASE 2+ (NEGATIVE); URINE NITRITE NEGATIVE (NEGATIVE); URINE PROTEIN 1+ (NEGATIVE); URINE WBC 3059 /uL (0-25.8)
[2021-09-17] MEDS ORDERED: PIPERACILLIN/TAZOB 4.5 GM 4.5 GM in DEXTROSE 5%-WATER 100 ML IVPB ONE (23:47)
[2021-09-18] LABS: URINE RBC 310 /uL (0-23.9)
[2021-09-18 00:52] LABS: VENOUS BASE EXCESS -2.8 mmol/L (-2-2); VENOUS O2 SATURATION 46.3 % (70-80); VENOUS PCO2 46.1 mmHg (38-52); VENOUS PH 7.324 (7.310-7.410)
[2021-09-18] MEDS ORDERED: PIPERACILLIN/TAZOB 4.5 GM 4.5 GM/100 ML BAG IVPB ONE (00:53)
[2021-09-18 01:24] LABS: LACTIC ACID 4.3 mmol/L (0.4-2.0)
[2021-09-18 08:17] LABS: ALBUMIN 3.1 g/dl (3.4-5.0); CALCIUM 8.7 mg/dL (8.5-10.1)
[2021-09-18 08:18] LABS: BLOOD UREA NITROGEN 29.1 mg/dL (7-18)
[2021-09-18 08:20] LABS: CREATININE 1.5 mg/dL (0.55-1.3)
[2021-09-18 08:22] LABS: BILIRUBIN,TOTAL 0.8 mg/dL (0.2-1); TOT PROT 6.7 g/dl (6.4-8.2)
[2021-09-18 08:26] LABS: HEMATOCRIT 42.1 % (35.4-49); HEMOGLOBIN 13.4 GM/dL (11.7-16.9); MCH 28.3 pg (25.7-33.7); MCHC 31.9 g/dl (32.0-35.9); MEAN CELL VOLUME 88.8 fl (80-96); MEAN PLT VOLUME 8.7 fl (7.5-11.1); PLATELET COUNT 161 10^3/uL (134-434); RBC 4.73 M/mm3 (4.00-5.60); RDW 17.8 % (11.9-15.9); WHITE BLOOD COUNT 14.8 K/mm3 (4.0-10.0)
[2021-09-18 10:46] LABS: LACTIC ACID 9.3 mmol/L (0.4-2.0)
[2021-09-18] MEDS ORDERED: DEXTROSE 50%-WATER - 25 GM/50 ML VIAL IVPUSH ONE (10:52)
[2021-09-18] MEDS ORDERED: DEXTROSE 50%-WATER 25 GM/50 ML DISP.SYRIN ONE (10:54)
[2021-09-18 12:43] LABS: ANISOCYTOSIS 0; MACROCYTOSIS 0
[2021-09-18] MEDS ORDERED: PIPERACILLIN/TAZOB 2.25 GM 2.25 GM/50 ML BAG IVPB ONE (15:38)
[2021-09-18] MEDS: PIPERACILLIN/TAZOB 2.25 GM 2.25 GM in DEXTROSE 5%-WATER - 50 ML IVPB SCH ×2 (15:55→16:08)
[2021-09-18] MEDS: D5-1/2NS+10 MEQ KCL - 10 MEQ/1,000 ML INFUS.BAG IV SCH (15:55)
[2021-09-18] MEDS ORDERED: MINERAL OIL ENEMA 133 ML ENEMA RC ONE (20:00)
[2021-09-18] MEDS ORDERED: HEPARIN NA (PORCINE) 5,000 UNITS/ML 1ML VIAL ONE (21:47)
[2021-09-18] MEDS: HEPARIN NA (PORCINE) 5,000 UNITS/ML 1ML VIAL SQ SCH (21:55)
[2021-09-18] MEDS: ATORVASTATIN CA 80 MG TABLET (FP) GT SCH (21:56)
[2021-09-18] MEDS: lamoTRIgine 100 MG TABLET GT SCH (21:56)
[2021-09-18] MEDS: METOPROLOL TARTRATE 25 MG TABLET (FP) GT SCH (21:57)
[2021-09-18 23:59] VITALS: BMI 24.4
[2021-09-19] MEDS ORDERED: PIPERACILLIN/TAZOBACTAM 2.25 GM VIAL IVPB ONE ×2 (00:57→09:52)
[2021-09-19] MEDS ORDERED: DEXTROSE 5%-WATER - 50 ML IVPB ONE ×2 (00:58→09:52)
[2021-09-19] MEDS: PIPERACILLIN/TAZOB 2.25 GM 2.25 GM in DEXTROSE 5%-WATER - 50 ML IVPB SCH ×2 (01:09→10:01)
[2021-09-19] MEDS: D5-1/2NS+10 MEQ KCL - 10 MEQ/1,000 ML INFUS.BAG IV SCH ×2 (07:00→16:39)
[2021-09-19 08:43] LABS: MCH 28.3 pg (25.7-33.7); MCHC 32.5 g/dl (32.0-35.9); MEAN PLT VOLUME 8.9 fl (7.5-11.1); PLATELET COUNT 135 10^3/uL (134-434); RBC 4.25 M/mm3 (4.00-5.60); RDW 17.8 % (11.9-15.9); WHITE BLOOD COUNT 14.8 K/mm3 (4.0-10.0)
[2021-09-19 08:57] LABS: ALBUMIN 2.8 g/dl (3.4-5.0)
[2021-09-19 09:00] LABS: CREATININE 1.4 mg/dL (0.55-1.3)
[2021-09-19 09:02] LABS: BILIRUBIN,TOTAL 0.8 mg/dL (0.2-1); TOT PROT 5.9 g/dl (6.4-8.2)
[2021-09-19 09:39] LABS: ANISOCYTOSIS 0; MACROCYTOSIS 0; OVALOCYTE 0
[2021-09-19] MEDS: HEPARIN NA (PORCINE) 5,000 UNITS/ML 1ML VIAL SQ SCH ×2 (10:02→21:07)
[2021-09-19] MEDS: CLOPIDOGREL BISULFATE 75 MG TABLET (FP) GT SCH (14:41)
[2021-09-19] MEDS: ASPIRIN 81 MG CHEWABLE TABLETS GT SCH (14:41)
[2021-09-19] MEDS: amLODIPine BESYLATE 10 MG TABLET (FP) GT SCH (14:41)
[2021-09-19] MEDS: METOPROLOL TARTRATE 25 MG TABLET (FP) GT SCH ×2 (14:41→21:41)
[2021-09-19] MEDS: lamoTRIgine 100 MG TABLET GT SCH ×2 (14:42→21:09)
[2021-09-19] MEDS: PANTOPRAZOLE 20 MG TABLET PO SCH (14:42)
[2021-09-19] MEDS ORDERED: PIPERACILLIN/TAZOB 2.25 GM 2.25 GM in DEXTROSE 5%-WATER - 50 ML IVPB SCH (16:00)
[2021-09-19] MEDS ORDERED: SODIUM CHLORIDE 500 ML IV STA (16:23)
[2021-09-19] MEDS: PIPERACILLIN/TAZOB 3.375 GM 3.375 GM in DEXTROSE 5%-WATER - 50 ML IVPB SCH (17:19)
[2021-09-19] MEDS: ATORVASTATIN CA 80 MG TABLET (FP) GT SCH (21:41)
[2021-09-20] MEDS ORDERED: PIPERACILLIN/TAZOBACTAM 3.375 GM VIAL IVPB ONE ×4 (00:29→17:47)
[2021-09-20] MEDS ORDERED: DEXTROSE 5%-WATER - 50 ML IVPB ONE ×4 (00:29→17:48)
[2021-09-20] MEDS: PIPERACILLIN/TAZOB 3.375 GM 3.375 GM in DEXTROSE 5%-WATER - 50 ML IVPB SCH ×3 (01:00→18:16)
[2021-09-20] MEDS: D5-1/2NS+10 MEQ KCL - 10 MEQ/1,000 ML INFUS.BAG IV SCH ×2 (02:00→16:30)
[2021-09-20 07:48] LABS: CALCIUM 8.4 mg/dL (8.5-10.1)
[2021-09-20 07:49] LABS: ALBUMIN 2.7 g/dl (3.4-5.0); BLOOD UREA NITROGEN 25.6 mg/dL (7-18)
[2021-09-20 07:53] LABS: BILIRUBIN,TOTAL 0.9 mg/dL (0.2-1)
[2021-09-20] MEDS: CLOPIDOGREL BISULFATE 75 MG TABLET (FP) GT SCH (10:22)
[2021-09-20] MEDS: ASPIRIN 81 MG CHEWABLE TABLETS GT SCH (10:22)
[2021-09-20] MEDS: PANTOPRAZOLE 20 MG TABLET PO SCH (10:22)
[2021-09-20] MEDS: METOPROLOL TARTRATE 25 MG TABLET (FP) GT SCH ×2 (10:22→21:36)
[2021-09-20] MEDS: lamoTRIgine 100 MG TABLET GT SCH ×2 (10:22→21:36)
[2021-09-20] MEDS: HEPARIN NA (PORCINE) 5,000 UNITS/ML 1ML VIAL SQ SCH ×2 (10:22→21:36)
[2021-09-20] MEDS: amLODIPine BESYLATE 10 MG TABLET (FP) GT SCH (10:22)
[2021-09-20] MEDS ORDERED: KCL 10 MEQ IVPB 10 MEQ/100 ML INFUS.BAG IVPB SCH (12:00)
[2021-09-20] MEDS: ATORVASTATIN CA 80 MG TABLET (FP) GT SCH (21:36)
[2021-09-21] MEDS ORDERED: PIPERACILLIN/TAZOBACTAM 3.375 GM VIAL IVPB ONE ×3 (00:35→19:35)
[2021-09-21] MEDS ORDERED: DEXTROSE 5%-WATER - 50 ML IVPB ONE ×3 (00:35→19:35)
[2021-09-21] MEDS: PIPERACILLIN/TAZOB 3.375 GM 3.375 GM in DEXTROSE 5%-WATER - 50 ML IVPB SCH ×3 (02:02→18:00)
[2021-09-21] MEDS: CLOPIDOGREL BISULFATE 75 MG TABLET (FP) GT SCH (10:06)
[2021-09-21] MEDS: PANTOPRAZOLE 20 MG TABLET PO SCH (10:06)
[2021-09-21] MEDS: HEPARIN NA (PORCINE) 5,000 UNITS/ML 1ML VIAL SQ SCH ×2 (10:06→21:43)
[2021-09-21] MEDS: METOPROLOL TARTRATE 25 MG TABLET (FP) GT SCH ×2 (10:07→21:42)
[2021-09-21] MEDS: amLODIPine BESYLATE 10 MG TABLET (FP) GT SCH (10:07)
[2021-09-21] MEDS: ASPIRIN 81 MG CHEWABLE TABLETS GT SCH (10:08)
[2021-09-21] MEDS: lamoTRIgine 100 MG TABLET GT SCH ×2 (10:08→21:42)
[2021-09-21 12:51] LABS: BASO % 0.4 % (0-2.0); HEMATOCRIT 33.3 % (35.4-49); HEMOGLOBIN 11.1 GM/dL (11.7-16.9); LYMPH % 11.5 % (8-40); MCH 28.9 pg (25.7-33.7); MCHC 33.4 g/dl (32.0-35.9); MEAN CELL VOLUME 86.3 fl (80-96); MEAN PLT VOLUME 8.9 fl (7.5-11.1); MONO % 4.3 % (3.8-10.2); NEUT % 82.8 % (42.8-82.8); PLATELET COUNT 109 10^3/uL (134-434); RBC 3.86 M/mm3 (4.00-5.60); RDW 17.5 % (11.9-15.9); WHITE BLOOD COUNT 8.7 K/mm3 (4.0-10.0)
[2021-09-21 13:12] LABS: ALBUMIN 2.6 g/dl (3.4-5.0); BLOOD UREA NITROGEN 11.2 mg/dL (7-18)
[2021-09-21 13:15] LABS: CREATININE 0.8 mg/dL (0.55-1.3)
[2021-09-21 13:16] LABS: BILIRUBIN,TOTAL 0.8 mg/dL (0.2-1)
[2021-09-21] MEDS: D5-1/2NS+10 MEQ KCL - 10 MEQ/1,000 ML INFUS.BAG IV SCH (18:37)
[2021-09-21] MEDS: ATORVASTATIN CA 80 MG TABLET (FP) GT SCH (21:43)
[2021-09-22] MEDS ORDERED: PIPERACILLIN/TAZOBACTAM 3.375 GM VIAL IVPB ONE ×3 (01:24→17:26)
[2021-09-22] MEDS ORDERED: DEXTROSE 5%-WATER - 50 ML IVPB ONE ×3 (01:25→17:26)
[2021-09-22] MEDS: PIPERACILLIN/TAZOB 3.375 GM 3.375 GM in DEXTROSE 5%-WATER - 50 ML IVPB SCH ×3 (01:56→18:09)
[2021-09-22] MEDS ORDERED: ACETAMINOPHEN 1000 MG/100 ML BAG IVPB ONE (06:25)
[2021-09-22] MEDS: POLYETHYLENE GLYCOL (HEALTHYLAX) 3350 17 GM PACKET GT SCH ×2 (10:14→21:25)
[2021-09-22] MEDS: HEPARIN NA (PORCINE) 5,000 UNITS/ML 1ML VIAL SQ SCH ×2 (10:15→21:25)
[2021-09-22] MEDS: ASPIRIN 81 MG CHEWABLE TABLETS GT SCH (10:15)
[2021-09-22] MEDS: amLODIPine BESYLATE 10 MG TABLET (FP) GT SCH (10:15)
[2021-09-22] MEDS: CLOPIDOGREL BISULFATE 75 MG TABLET (FP) GT SCH (10:15)
[2021-09-22] MEDS: METOPROLOL TARTRATE 25 MG TABLET (FP) GT SCH ×2 (10:15→21:25)
[2021-09-22] MEDS: lamoTRIgine 100 MG TABLET GT SCH ×2 (10:30→21:24)
[2021-09-22] MEDS: PANTOPRAZOLE 20 MG TABLET PO SCH (11:23)
[2021-09-22] MEDS: D5-1/2NS+10 MEQ KCL - 10 MEQ/1,000 ML INFUS.BAG IV SCH (18:10)
[2021-09-22] MEDS: ATORVASTATIN CA 80 MG TABLET (FP) GT SCH (21:24)
[2021-09-23] MEDS ORDERED: DEXTROSE 5%-WATER - 50 ML IVPB ONE ×3 (00:40→16:23)
[2021-09-23] MEDS ORDERED: PIPERACILLIN/TAZOBACTAM 3.375 GM VIAL IVPB ONE ×3 (00:40→16:23)
[2021-09-23] MEDS: D5-1/2NS+10 MEQ KCL - 10 MEQ/1,000 ML INFUS.BAG IV SCH ×3 (01:01→15:07)
[2021-09-23] MEDS: PIPERACILLIN/TAZOB 3.375 GM 3.375 GM in DEXTROSE 5%-WATER - 50 ML IVPB SCH ×3 (01:02→17:04)
[2021-09-23] MEDS: LACTULOSE 20 GM/30 ML UDC (FOR ORAL USE ONLY) PO SCH (09:13)
[2021-09-23] MEDS: METOPROLOL TARTRATE 25 MG TABLET (FP) GT SCH ×2 (09:13→22:46)
[2021-09-23] MEDS: CLOPIDOGREL BISULFATE 75 MG TABLET (FP) GT SCH (09:13)
[2021-09-23] MEDS: HEPARIN NA (PORCINE) 5,000 UNITS/ML 1ML VIAL SQ SCH ×2 (09:13→22:46)
[2021-09-23] MEDS: amLODIPine BESYLATE 10 MG TABLET (FP) GT SCH (09:13)
[2021-09-23] MEDS: ASPIRIN 81 MG CHEWABLE TABLETS GT SCH (09:14)
[2021-09-23] MEDS: lamoTRIgine 100 MG TABLET GT SCH ×2 (09:14→22:46)
[2021-09-23] MEDS: PANTOPRAZOLE 20 MG TABLET PO SCH (09:14)
[2021-09-23] MEDS: ATORVASTATIN CA 80 MG TABLET (FP) GT SCH (22:46)
[2021-09-24] MEDS ORDERED: PIPERACILLIN/TAZOBACTAM 3.375 GM VIAL IVPB ONE ×4 (01:54→16:48)
[2021-09-24] MEDS: PIPERACILLIN/TAZOB 3.375 GM 3.375 GM in DEXTROSE 5%-WATER - 50 ML IVPB SCH ×3 (02:42→17:26)
[2021-09-24] MEDS: D5-1/2NS+10 MEQ KCL - 10 MEQ/1,000 ML INFUS.BAG IV SCH ×3 (02:42→21:41)
[2021-09-24] MEDS ORDERED: DEXTROSE 5%-WATER - 50 ML IVPB ONE ×2 (09:10→16:48)
[2021-09-24] MEDS: ASPIRIN 81 MG CHEWABLE TABLETS GT SCH (10:04)
[2021-09-24] MEDS: METOPROLOL TARTRATE 25 MG TABLET (FP) GT SCH ×2 (10:05→21:42)
[2021-09-24] MEDS: HEPARIN NA (PORCINE) 5,000 UNITS/ML 1ML VIAL SQ SCH ×2 (10:05→21:42)
[2021-09-24] MEDS: amLODIPine BESYLATE 10 MG TABLET (FP) GT SCH (10:05)
[2021-09-24] MEDS: PANTOPRAZOLE 20 MG TABLET PO SCH (10:05)
[2021-09-24] MEDS: CLOPIDOGREL BISULFATE 75 MG TABLET (FP) GT SCH (10:05)
[2021-09-24] MEDS: LACTULOSE 20 GM/30 ML UDC (FOR ORAL USE ONLY) PO SCH (10:09)
[2021-09-24] MEDS: lamoTRIgine 100 MG TABLET GT SCH ×2 (10:09→21:42)
[2021-09-24 13:23] LABS: CALCIUM 8.4 mg/dL (8.5-10.1)
[2021-09-24 13:25] LABS: ALBUMIN 2.7 g/dl (3.4-5.0); BLOOD UREA NITROGEN 6.2 mg/dL (7-18); MAGNESIUM 2.1 mg/dL (1.8-2.4)
[2021-09-24 13:28] LABS: CREATININE 0.8 mg/dL (0.55-1.3); PHOSPHOROUS 2.7 mg/dL (2.5-4.9); TOT PROT 6.1 g/dl (6.4-8.2)
[2021-09-24 13:29] LABS: BILIRUBIN,TOTAL 0.6 mg/dL (0.2-1)
[2021-09-24] MEDS: AMINO ACIDS/PROTEIN HYDROLYS 30 ML LIQUID.PKT PO SCH (17:26)
[2021-09-24] MEDS: ATORVASTATIN CA 80 MG TABLET (FP) GT SCH (21:42)
[2021-09-25] MEDS ORDERED: PIPERACILLIN/TAZOBACTAM 3.375 GM VIAL IVPB ONE ×3 (02:13→16:19)
[2021-09-25] MEDS: PIPERACILLIN/TAZOB 3.375 GM 3.375 GM in DEXTROSE 5%-WATER - 50 ML IVPB SCH ×3 (02:30→17:18)
[2021-09-25] MEDS ORDERED: DEXTROSE 5%-WATER - 50 ML IVPB ONE ×2 (08:46→16:19)
[2021-09-25] MEDS: AMINO ACIDS/PROTEIN HYDROLYS 30 ML LIQUID.PKT PO SCH ×2 (09:37→17:19)
[2021-09-25] MEDS: PANTOPRAZOLE 20 MG TABLET PO SCH (09:37)
[2021-09-25] MEDS: lamoTRIgine 100 MG TABLET GT SCH ×2 (09:37→21:58)
[2021-09-25] MEDS: amLODIPine BESYLATE 10 MG TABLET (FP) GT SCH (09:37)
[2021-09-25] MEDS: METOPROLOL TARTRATE 25 MG TABLET (FP) GT SCH ×2 (09:37→21:59)
[2021-09-25] MEDS: ASPIRIN 81 MG CHEWABLE TABLETS GT SCH (09:37)
[2021-09-25] MEDS: CLOPIDOGREL BISULFATE 75 MG TABLET (FP) GT SCH (09:37)
[2021-09-25] MEDS: MULTIVIT-MINERALS ORAL LIQUID PO SCH (09:39)
[2021-09-25] MEDS: LACTULOSE 20 GM/30 ML UDC (FOR ORAL USE ONLY) PO SCH (09:39)
[2021-09-25] MEDS: HEPARIN NA (PORCINE) 5,000 UNITS/ML 1ML VIAL SQ SCH (09:40)
[2021-09-25] MEDS: D5-1/2NS+10 MEQ KCL - 10 MEQ/1,000 ML INFUS.BAG IV SCH (13:19)
[2021-09-25] MEDS: ATORVASTATIN CA 80 MG TABLET (FP) GT SCH (21:59)
[2021-09-26] MEDS ORDERED: PIPERACILLIN/TAZOBACTAM 3.375 GM VIAL IVPB ONE (02:37)
[2021-09-26] MEDS ORDERED: DEXTROSE 5%-WATER - 50 ML IVPB ONE (02:37)
[2021-09-26] MEDS: PIPERACILLIN/TAZOB 3.375 GM 3.375 GM in DEXTROSE 5%-WATER - 50 ML IVPB SCH (02:50)
[2021-09-26 04:03] VITALS: PULSE 64
[2021-09-26 09:20] VITALS: BP 128/72; TEMP 98.3
[2021-09-26] MEDS: CLOPIDOGREL BISULFATE 75 MG TABLET (FP) GT SCH (10:29)
[2021-09-26] MEDS: AMINO ACIDS/PROTEIN HYDROLYS 30 ML LIQUID.PKT PO SCH (10:29)
[2021-09-26] MEDS: METOPROLOL TARTRATE 25 MG TABLET (FP) GT SCH (10:29)
[2021-09-26] MEDS: LACTULOSE 20 GM/30 ML UDC (FOR ORAL USE ONLY) PO SCH (10:29)
[2021-09-26] MEDS: PANTOPRAZOLE 20 MG TABLET PO SCH (10:30)
[2021-09-26] MEDS: amLODIPine BESYLATE 10 MG TABLET (FP) GT SCH (10:30)
[2021-09-26] MEDS: ASPIRIN 81 MG CHEWABLE TABLETS GT SCH (10:30)
[2021-09-26] MEDS: MULTIVIT-MINERALS ORAL LIQUID PO SCH (10:34)
[2021-09-26] MEDS: lamoTRIgine 100 MG TABLET GT SCH (10:35)
== END 2021-09-26 13:38 | disposition home health service (06) | DRG 689 ==
LOC: JER 16:43 → JERBED 21:17 → J4W 09-18 22:29
PROVIDERS: ADMIT Internal Medicine; ATTEND Family Medicine
DX: N39.0 Urinary tract infection, site not specified (principal); G93.41 Metabolic encephalopathy; N17.9 Acute kidney failure, unspecified; E87.2 Acidosis; I69.354 Hemiplegia and hemiparesis following cerebral infarction affecting left non-dominant side; F03.90 Unspecified dementia, unspecified severity, without behavioral disturbance, psychotic disturbance, mood disturbance, and anxiety; D64.9 Anemia, unspecified; I25.10 Atherosclerotic heart disease of native coronary artery without angina pectoris; I11.0 Hypertensive heart disease with heart failure; I50.9 Heart failure, unspecified; E78.5 Hyperlipidemia, unspecified; N40.0 Benign prostatic hyperplasia without lower urinary tract symptoms; E03.9 Hypothyroidism, unspecified; R11.10 Vomiting, unspecified; K56.41 Fecal impaction; R94.31 Abnormal electrocardiogram [ECG] [EKG]; G40.909 Epilepsy, unspecified, not intractable, without status epilepticus; I69.320 Aphasia following cerebral infarction; R13.10 Dysphagia, unspecified
CPT/HCPCS: 0241U-QW; 36415; 70450-TC; 71045-TC-FY; 74176-TC; 74230-TC-FY; 80053; 81003; 82550; 82553; 82803; 82962; 83605; 83735; 84100; 84484; 85025; 85610; 85730; 87040; 87086; 87186; 92611-GN; 93005; 93010; 97116-GP; 97162-GP; 99285-25; J1644

== ENCOUNTER 2022-04-23 03:35 | Inpatient (IN) | payer OTHER ==
[2022-04-23] MEDS ORDERED: ACETAMINOPHEN 1000 MG/100 ML BAG IVPB ONE (04:16)
[2022-04-23] MEDS ORDERED: ACETAMINOPHEN INJECTION 100 ML IVPB ONE (04:19)
[2022-04-23 04:55] LABS: BASO % 0.4 % (0-2.0); EOS % 0.2 % (0-4.5); HEMATOCRIT 36.2 % (35.4-49); HEMOGLOBIN 12.2 GM/dL (11.7-16.9); LYMPH % 11.4 % (8-40); MCH 30.1 pg (25.7-33.7); MCHC 33.7 g/dl (32.0-35.9); MEAN CELL VOLUME 89.2 fl (80-96); MEAN PLT VOLUME 8.4 fl (7.5-11.1); MONO % 7.3 % (3.8-10.2); NEUT % 80.7 % (42.8-82.8); PLATELET COUNT 181 10^3/uL (134-434); RBC 4.06 M/mm3 (4.00-5.60); RDW 15.7 % (11.9-15.9); WHITE BLOOD COUNT 10.5 K/mm3 (4.0-10.0)
[2022-04-23 05:05] LABS: INR 1.03 (0.83-1.09)
[2022-04-23 05:08] LABS: ACTIVATED PTT 32.1 SECONDS (25.2-36.5)
[2022-04-23 05:16] LABS: CHLORIDE 105 mmol/L (98-107); SODIUM 139 mmol/L (136-145)
[2022-04-23 05:18] LABS: CALCIUM 8.5 mg/dL (8.5-10.1)
[2022-04-23 05:19] LABS: ALBUMIN 3.2 g/dl (3.4-5.0); ANION GAP 9 MMOL/L (8-16); BLOOD UREA NITROGEN 27.8 mg/dL (7-18); CO2 25 mmol/L (21-32); GLUCOSE,RANDOM 132 mg/dL (74-106)
[2022-04-23 05:22] LABS: CREATININE 1.4 mg/dL (0.55-1.3); SGOT/AST 23 U/L (15-37); SGPT/ALT 38 U/L (13-61); VENOUS BASE EXCESS 0.9 mmol/L (-2-2); VENOUS O2 SATURATION 84.6 % (70-80); VENOUS PCO2 38.4 mmHg (38-52); VENOUS PH 7.432 (7.310-7.410)
[2022-04-23 05:23] LABS: BILIRUBIN,TOTAL 1.5 mg/dL (0.2-1); TOT PROT 6.9 g/dl (6.4-8.2)
[2022-04-23 05:25] LABS: ALK PHOS 93 U/L (45-117)
[2022-04-23 06:51] LABS: EPI CELLS 5 /uL (0-25.1); HYALINE CASTS 1 /uL (0-3.1); PH,URINE 6.5 (5.0-8.0); URINE APPEARANCE TURBID; URINE BACTERIA 6767 /uL (0-1359); URINE BILIRUBIN NEGATIVE (NEGATIVE); URINE COLOR YELLOW; URINE GLUCOSE (UA) NEGATIVE (NEGATIVE); URINE KETONE NEGATIVE (NEGATIVE); URINE LEUK ESTERASE 3+ (NEGATIVE); URINE NITRITE POSITIVE (NEGATIVE); URINE PROTEIN 2+ (NEGATIVE); URINE WBC 12102 /uL (0-25.8)
[2022-04-23] MEDS ORDERED: PIPERACILLIN/TAZOB 3.375 GM 3.375 GM in DEXTROSE 5%-WATER - 50 ML IVPB ONE (07:09)
[2022-04-23] MEDS ORDERED: PIPERACILLIN/TAZOB 3.375 GM 3.375 GM/50 ML BAG IVPB ONE ×2 (07:17→16:36)
[2022-04-23 08:39] LABS: YEAST NONE SEEN (NEGATIVE)
[2022-04-23 09:27] LABS: URINE RBC 256 /uL (0-23.9)
[2022-04-23] MEDS ORDERED: PIPERACILLIN/TAZOB 3.375 GM 3.375 GM in DEXTROSE 5%-WATER - 50 ML IVPB SCH (16:00)
[2022-04-23] MEDS ORDERED: SODIUM CHLORIDE 1,000 ML IV SCH (16:15)
[2022-04-23] MEDS ORDERED: PIPERACILLIN/TAZOB 3.375 GM 3.375 GM in DEXTROSE 5%-WATER 100 ML IVPB SCH (16:15)
[2022-04-23] MEDS: PIPERACILLIN/TAZOB 3.375 GM 3.375 GM in DEXTROSE 5%-WATER - 50 ML IVPB SCH (16:39)
[2022-04-23] MEDS ORDERED: METOPROLOL TARTRATE 5 MG/5 ML VIAL IVPUSH PRN (19:17)
[2022-04-23] MEDS ORDERED: ACETAMINOPHEN 1000 MG/100 ML BAG IVPB PRN ×2 (19:19→19:23)
[2022-04-24] MEDS: PIPERACILLIN/TAZOB 3.375 GM 3.375 GM in DEXTROSE 5%-WATER - 50 ML IVPB SCH ×2 (00:33→08:51)
[2022-04-24] MEDS ORDERED: GLYCERIN 1 RECTAL SUPPOSITORY, ADULT RC PRN (09:21)
[2022-04-24] MEDS: levETIRAcetam 500 MG/5 ML INJECTION VIAL IVPB SCH ×2 (10:28→21:00)
[2022-04-24] MEDS: PANTOPRAZOLE SODIUM 40 MG VIAL IVPUSH SCH (10:28)
[2022-04-24] MEDS: SODIUM CHLORIDE 0.45% 1,000 ML IV SCH (14:00)
[2022-04-24] MEDS: MEROPENEM 1 GM in DEXTROSE 5%-WATER 100 ML IVPB SCH (17:39)
[2022-04-24 18:12] LABS: BLOOD UREA NITROGEN 25.1 mg/dL (7-18); CALCIUM 8.6 mg/dL (8.5-10.1)
[2022-04-24 18:15] LABS: CREATININE 1.2 mg/dL (0.55-1.3)
[2022-04-24 18:17] LABS: BILIRUBIN,TOTAL 1.5 mg/dL (0.2-1); TOT PROT 6.5 g/dl (6.4-8.2)
[2022-04-25] MEDS: MEROPENEM 1 GM in DEXTROSE 5%-WATER 100 ML IVPB SCH ×2 (04:30→18:02)
[2022-04-25] MEDS: levETIRAcetam 500 MG/5 ML INJECTION VIAL IVPB SCH ×2 (09:29→21:37)
[2022-04-25] MEDS: PANTOPRAZOLE SODIUM 40 MG VIAL IVPUSH SCH (09:37)
[2022-04-25] MEDS: SODIUM CHLORIDE 0.45% 1,000 ML IV SCH ×2 (09:37→18:08)
[2022-04-25] MEDS ORDERED: METOPROLOL TARTRATE 5 MG/5 ML VIAL IVPB PRN (12:19)
[2022-04-25 14:07] LABS: BASO % 0.4 % (0-2.0); EOS % 1.7 % (0-4.5); HEMATOCRIT 35.8 % (35.4-49); HEMOGLOBIN 11.8 GM/dL (11.7-16.9); LYMPH % 17.8 % (8-40); MCH 29.5 pg (25.7-33.7); MEAN CELL VOLUME 89.4 fl (80-96); MONO % 12.3 % (3.8-10.2); NEUT % 67.8 % (42.8-82.8); PLATELET COUNT 178 10^3/uL (134-434); RDW 15.8 % (11.9-15.9); WHITE BLOOD COUNT 5.5 K/mm3 (4.0-10.0)
[2022-04-25 14:17] LABS: ALBUMIN 2.8 g/dl (3.4-5.0); BLOOD UREA NITROGEN 22.6 mg/dL (7-18); CALCIUM 8.6 mg/dL (8.5-10.1)
[2022-04-25 14:22] LABS: BILIRUBIN,TOTAL 1.2 mg/dL (0.2-1); TOT PROT 6.4 g/dl (6.4-8.2)
[2022-04-25] MEDS: CEFAZOLIN 1 GM in DEXTROSE 5%-WATER - 50 ML IVPB SCH (18:05)
[2022-04-26] MEDS: SODIUM CHLORIDE 0.45% 1,000 ML IV SCH ×2 (00:10→13:43)
[2022-04-26] MEDS: CEFAZOLIN 1 GM in DEXTROSE 5%-WATER - 50 ML IVPB SCH ×3 (01:14→17:37)
[2022-04-26] MEDS: levETIRAcetam 500 MG/5 ML INJECTION VIAL IVPB SCH ×2 (09:19→21:19)
[2022-04-26] MEDS: PANTOPRAZOLE SODIUM 40 MG VIAL IVPUSH SCH (09:20)
[2022-04-26] MEDS ORDERED: ACETAMINOPHEN 1000 MG/100 ML BAG IVPB ONE (19:56)
[2022-04-27] MEDS: CEFAZOLIN 1 GM in DEXTROSE 5%-WATER - 50 ML IVPB SCH ×2 (02:58→09:52)
[2022-04-27] MEDS: SODIUM CHLORIDE 0.45% 1,000 ML IV SCH ×2 (05:19→15:13)
[2022-04-27] MEDS: PANTOPRAZOLE SODIUM 40 MG VIAL IVPUSH SCH (09:52)
[2022-04-27] MEDS: levETIRAcetam 500 MG/5 ML INJECTION VIAL IVPB SCH ×2 (09:52→22:01)
[2022-04-27] MEDS: CEFAZOLIN SODIUM 2 GM in DEXTROSE 5%-WATER 100 ML IVPB SCH (15:13)
[2022-04-28] MEDS: CEFAZOLIN SODIUM 2 GM in DEXTROSE 5%-WATER 100 ML IVPB SCH ×4 (06:39→23:17)
[2022-04-28] MEDS: SODIUM CHLORIDE 0.45% 1,000 ML IV SCH (08:32)
[2022-04-28] MEDS: levETIRAcetam 500 MG/5 ML INJECTION VIAL IVPB SCH ×2 (09:16→21:16)
[2022-04-28] MEDS: PANTOPRAZOLE SODIUM 40 MG VIAL IVPUSH SCH (09:16)
[2022-04-28 09:47] LABS: BLOOD UREA NITROGEN 12.4 mg/dL (7-18); CALCIUM 8.9 mg/dL (8.5-10.1)
[2022-04-28 09:50] LABS: CREATININE 0.9 mg/dL (0.55-1.3)
[2022-04-28 09:54] LABS: TOT PROT 6.8 g/dl (6.4-8.2)
[2022-04-28] MEDS ORDERED: POTASSIUM CHLORIDE TABS 20 MEQ TABLET.ER (FP) PO ONE (15:59)
[2022-04-28] MEDS ORDERED: NYSTATIN 500,000 UNITS/5 ML SUSPENSION PO SCH (18:00)
[2022-04-29] MEDS: CEFAZOLIN SODIUM 2 GM in DEXTROSE 5%-WATER 100 ML IVPB SCH ×3 (06:15→22:23)
[2022-04-29] MEDS: levETIRAcetam 500 MG/5 ML INJECTION VIAL IVPB SCH ×2 (10:04→21:36)
[2022-04-29 10:09] LABS: BASO % 0.3 % (0-2.0); EOS % 2.2 % (0-4.5); HEMATOCRIT 33.9 % (35.4-49); HEMOGLOBIN 11.6 GM/dL (11.7-16.9); LYMPH % 25.6 % (8-40); MCH 30.2 pg (25.7-33.7); MCHC 34.1 g/dl (32.0-35.9); MEAN CELL VOLUME 88.5 fl (80-96); MEAN PLT VOLUME 8.1 fl (7.5-11.1); MONO % 10.4 % (3.8-10.2); NEUT % 61.5 % (42.8-82.8); PLATELET COUNT 256 10^3/uL (134-434); RBC 3.83 M/mm3 (4.00-5.60); RDW 15.2 % (11.9-15.9); WHITE BLOOD COUNT 5.4 K/mm3 (4.0-10.0)
[2022-04-29] MEDS: PANTOPRAZOLE SODIUM 40 MG VIAL IVPUSH SCH (10:13)
[2022-04-29 10:40] LABS: ALBUMIN 2.9 g/dl (3.4-5.0); BLOOD UREA NITROGEN 12.7 mg/dL (7-18)
[2022-04-29 10:44] LABS: BILIRUBIN,TOTAL 0.8 mg/dL (0.2-1); TOT PROT 6.7 g/dl (6.4-8.2)
[2022-04-29] MEDS: CLOPIDOGREL BISULFATE 75 MG TABLET (FP) PO SCH (13:58)
[2022-04-29] MEDS: ASPIRIN 81 MG CHEWABLE TABLETS PO SCH (13:59)
[2022-04-29 20:58] VITALS: BMI 23.9
[2022-04-30] MEDS: CEFAZOLIN SODIUM 2 GM in DEXTROSE 5%-WATER 100 ML IVPB SCH ×2 (06:34→14:19)
[2022-04-30] MEDS: ASPIRIN 81 MG CHEWABLE TABLETS PO SCH (09:14)
[2022-04-30] MEDS: CLOPIDOGREL BISULFATE 75 MG TABLET (FP) PO SCH (09:15)
[2022-04-30] MEDS: levETIRAcetam 500 MG/5 ML INJECTION VIAL IVPB SCH (10:52)
[2022-04-30] MEDS: PANTOPRAZOLE SODIUM 40 MG VIAL IVPUSH SCH (10:59)
[2022-04-30 14:12] VITALS: BP 150/78; PULSE 73; RESP 17; TEMP 98.4
== END 2022-04-30 16:10 | disposition home health service (06) | DRG 871 ==
LOC: JER 03:35 → JERBED 08:56 → J6S 17:08
PROVIDERS: ADMIT Family Medicine; ATTEND Family Medicine
DX: R78.81 Bacteremia (principal); R53.2 Functional quadriplegia; N17.9 Acute kidney failure, unspecified; I69.354 Hemiplegia and hemiparesis following cerebral infarction affecting left non-dominant side; N39.0 Urinary tract infection, site not specified; Z16.24 Resistance to multiple antibiotics; F03.90 Unspecified dementia, unspecified severity, without behavioral disturbance, psychotic disturbance, mood disturbance, and anxiety; I69.320 Aphasia following cerebral infarction; E78.5 Hyperlipidemia, unspecified; N40.0 Benign prostatic hyperplasia without lower urinary tract symptoms; I11.0 Hypertensive heart disease with heart failure; I50.9 Heart failure, unspecified; G40.909 Epilepsy, unspecified, not intractable, without status epilepticus; D64.9 Anemia, unspecified; R41.0 Disorientation, unspecified; R13.10 Dysphagia, unspecified; E03.9 Hypothyroidism, unspecified
CPT/HCPCS: 0241U-QW; 36415; 71045-TC-FY; 74177-TC; 80053; 81003; 82553; 82803; 83605; 84484; 85025; 85610; 85730; 87040; 87086; 87186; 93005; 93010; 97162-GP; 99285-25; Q9967

== ENCOUNTER 2023-08-23 16:52 | Inpatient (IN) | payer OTHER ==
[2023-08-23 17:28] VITALS: BMI 22.8
[2023-08-23 18:53] LABS: BASO % 0.4 % (0-2.0); HEMATOCRIT 37.3 % (35.4-49); HEMOGLOBIN 12.2 GM/dL (11.7-16.9); LYMPH % 19.9 % (8-40); MCH 28.4 pg (25.7-33.7); MCHC 32.8 g/dl (32.0-35.9); MEAN CELL VOLUME 86.7 fl (80-96); MEAN PLT VOLUME 7.7 fl (7.5-11.1); MONO % 4.9 % (3.8-10.2); NEUT % 73.8 % (42.8-82.8); PLATELET COUNT 297 10^3/uL (134-434); RBC 4.31 M/mm3 (4.00-5.60); WHITE BLOOD COUNT 5.9 K/mm3 (4.0-10.0)
[2023-08-23 19:13] LABS: POTASSIUM 4.2 mmol/L (3.5-5.1)
[2023-08-23 19:15] LABS: ALBUMIN 3.3 g/dl (3.4-5.0); BLOOD UREA NITROGEN 20.4 mg/dL (7-18)
[2023-08-23 19:18] LABS: CREATININE 1.2 mg/dL (0.55-1.3)
[2023-08-23 19:20] LABS: BILIRUBIN,TOTAL 0.7 mg/dL (0.2-1); TOT PROT 7.4 g/dl (6.4-8.2)
[2023-08-23 21:21] LABS: EPI CELLS 3 /uL (0-25.1); HYALINE CASTS 0 /uL (0-3.1); URINE APPEARANCE CLOUDY; URINE BACTERIA >9,000 /uL (0-1359); URINE BILIRUBIN NEGATIVE (NEGATIVE); URINE COLOR YELLOW; URINE GLUCOSE (UA) NEGATIVE (NEGATIVE); URINE KETONE NEGATIVE (NEGATIVE); URINE LEUK ESTERASE 3+ (NEGATIVE); URINE NITRITE POSITIVE (NEGATIVE); URINE PROTEIN TRACE (NEGATIVE); URINE RBC 44 /uL (0-23.9); URINE WBC 2023 /uL (0-25.8)
[2023-08-23] MEDS ORDERED: CEFTRIAXONE 1 GM/50 ML BAG ONE (21:54)
[2023-08-23] MEDS: CEFTRIAXONE 1,000 MG in DEXTROSE 5%-WATER - 50 ML IVPB ONE (22:00)
[2023-08-23] MEDS ORDERED: DOCUSATE SODIUM 100 MG CAPSULE (FP) PO PRN (23:42)
[2023-08-23] MEDS ORDERED: ACETAMINOPHEN 325 MG TABLET (FP) PO PRN (23:42)
[2023-08-23] MEDS ORDERED: ACETAMINOPHEN 1000 MG/100 ML BAG IVPB PRN (23:50)
[2023-08-23] MEDS: SODIUM CHLORIDE 0.45% 1,000 ML IV SCH (23:54)
[2023-08-24] MEDS ORDERED: ALBUTEROL SO4 HFA INHALER IH PRN (01:51)
[2023-08-24] MEDS: lamoTRIgine 100 MG TABLET PO SCH (02:42)
[2023-08-24 06:37] LABS: HEMATOCRIT 37.9 % (35.4-49); HEMOGLOBIN 12.4 GM/dL (11.7-16.9); MCH 28.5 pg (25.7-33.7); MCHC 32.6 g/dl (32.0-35.9); MEAN CELL VOLUME 87.6 fl (80-96); MEAN PLT VOLUME 8.1 fl (7.5-11.1); PLATELET COUNT 259 10^3/uL (134-434); RBC 4.33 M/mm3 (4.00-5.60); RDW 16.6 % (11.9-15.9); WHITE BLOOD COUNT 8.3 K/mm3 (4.0-10.0)
[2023-08-24 06:51] LABS: POTASSIUM 3.9 mmol/L (3.5-5.1)
[2023-08-24 06:53] LABS: BLOOD UREA NITROGEN 22.3 mg/dL (7-18); CALCIUM 8.6 mg/dL (8.5-10.1); MAGNESIUM 1.8 mg/dL (1.8-2.4)
[2023-08-24 06:56] LABS: PHOSPHOROUS 3.3 mg/dL (2.5-4.9)
[2023-08-24 08:31] LABS: ANISOCYTOSIS 1+; MACROCYTOSIS 0
[2023-08-24] MEDS ORDERED: CEFTRIAXONE 1 GM/50 ML BAG ONE (10:40)
[2023-08-24] MEDS: CARVEDILOL 12.5 MG TABLET (FP) PO SCH (10:47)
[2023-08-24] MEDS: ASPIRIN 81 MG CHEWABLE TABLETS PO SCH (10:47)
[2023-08-24] MEDS: FLUTICASONE PROP 0.05% 16 GM NASAL SPRAY NS SCH (10:47)
[2023-08-24] MEDS: GABAPENTIN 100 MG CAPSULE PO SCH (10:47)
[2023-08-24] MEDS: CHOLECALCIFEROL (VIT D3 5000 UNITS) 125 MCG TAB PO SCH (10:48)
[2023-08-24] MEDS: CEFTRIAXONE 1 GM in DEXTROSE 5%-WATER - 50 ML IVPB SCH (10:48)
[2023-08-24] MEDS: PANTOPRAZOLE 40 MG TABLET PO SCH (10:48)
[2023-08-24] MEDS: amLODIPine BESYLATE 10 MG TABLET (FP) PO SCH (10:48)
[2023-08-24] MEDS: ATORVASTATIN CA 80 MG TABLET (FP) PO SCH (22:20)
[2023-08-24] MEDS: GABAPENTIN 300 MG CAPSULE PO SCH (22:20)
[2023-08-24] MEDS: LATANOPROST 0.005% OPHTH SOLN 2.5ML BOTTLE OU SCH (22:55)
[2023-08-26] MEDS: ACETAMINOPHEN 325 MG TABLET (FP) PO PRN (08:51)
[2023-08-26] MEDS: CHOLECALCIFEROL (VIT D3) 5000 UNITS (125 MCG) CAP PO SCH ×2 (12:13→14:50)
[2023-08-26] MEDS: CHOLECALCIFEROL (VIT D3 5000 UNITS) 125 MCG TAB PO SCH (14:49)
[2023-08-27 14:10] VITALS: RESP 20
[2023-08-28 06:42] VITALS: BP 138/77; PULSE 74; TEMP 97.6
== END 2023-08-28 14:09 | disposition home or self-care (01) | DRG 690 ==
LOC: JER 16:52 → JERBED 21:48 → OBSVTOIN 08-24 08:45 → J7W 08-24 14:30
PROVIDERS: ADMIT Internal Medicine; ATTEND Family Medicine
DX: N39.0 Urinary tract infection, site not specified (principal); I69.354 Hemiplegia and hemiparesis following cerebral infarction affecting left non-dominant side; I11.0 Hypertensive heart disease with heart failure; I50.9 Heart failure, unspecified; E78.5 Hyperlipidemia, unspecified; N40.0 Benign prostatic hyperplasia without lower urinary tract symptoms; G20.A1 Parkinson's disease without dyskinesia, without mention of fluctuations; F02.80 Dementia in other diseases classified elsewhere, unspecified severity, without behavioral disturbance, psychotic disturbance, mood disturbance, and anxiety; Z93.1 Gastrostomy status; R13.10 Dysphagia, unspecified
CPT/HCPCS: 36415; 70450-TC; 71045-TC-FY; 80048; 80053; 81003; 82550; 83690; 83735; 84100; 84443; 84484; 85025; 87086; 87186; 93005; 93010; 97116-GP; 97162-GP; 99285-25; G0378

== ENCOUNTER 2024-05-12 00:34 | Inpatient (IN) | payer OTHER ==
[2024-05-12] MEDS ORDERED: PIPERACILLIN/TAZOB 3.375 GM 3.375 GM/50 ML BAG IVPB ONE ×2 (02:19→18:27)
[2024-05-12] MEDS ORDERED: VANCOMYCIN 1 GM PREMIX (F) 1 GM/200 ML BAG ONE (02:20)
[2024-05-12 02:48] LABS: BASO % 0.5 % (0-2.0); EOS % 2.2 % (0-4.5); HEMATOCRIT 37.5 % (35.4-49); HEMOGLOBIN 12.4 GM/dL (11.7-16.9); LYMPH % 9.6 % (8-40); MCH 28.2 pg (25.7-33.7); MEAN CELL VOLUME 85.4 fl (80-96); MEAN PLT VOLUME 8.2 fl (7.5-11.1); MONO % 4.2 % (3.8-10.2); NEUT % 83.5 % (42.8-82.8); PLATELET COUNT 191 10^3/uL (134-434); RBC 4.39 M/mm3 (4.00-5.60); RDW 18.5 % (11.9-15.9); WHITE BLOOD COUNT 8.6 K/mm3 (4.0-10.0)
[2024-05-12] MEDS: ACETAMINOPHEN 1000 MG/100 ML BAG IVPB ONE (02:55)
[2024-05-12] MEDS: PIPERACILLIN/TAZOB 3.375 GM 3.375 GM in DEXTROSE 5%-WATER - 50 ML IVPB ONE (02:55)
[2024-05-12] MEDS: SODIUM CHLORIDE 0.9% 500 ML INFUS.BAG IV ONE (02:55)
[2024-05-12 02:58] LABS: INR 1.06 (0.83-1.09); PROTHROMBIN TIME (PATIENT) 11.5 SEC (9.7-13.0)
[2024-05-12 02:58] LABS: VENOUS O2 SATURATION 68.7 % (70-80); VENOUS PH 7.338 (7.310-7.410)
[2024-05-12 03:00] LABS: ACTIVATED PTT 28.5 SECONDS (25.2-36.5)
[2024-05-12 03:12] LABS: CALCIUM 8.9 mg/dL (8.5-10.1)
[2024-05-12 03:13] LABS: ALBUMIN 3.2 g/dl (3.4-5.0); BLOOD UREA NITROGEN 19.4 mg/dL (7-18)
[2024-05-12 03:16] LABS: CREATININE 1.2 mg/dL (0.55-1.3)
[2024-05-12 03:18] LABS: LACTIC ACID 2.6 mmol/L (0.4-2.0)
[2024-05-12] MEDS: VANCOMYCIN 1,000 MG in DEXTROSE 5%-WATER - 250 ML IVPB ONE (03:23)
[2024-05-12 03:49] LABS: PH,URINE 5.5 (5.0-8.0); URINE APPEARANCE CLEAR; URINE BILIRUBIN NEGATIVE (NEGATIVE); URINE COLOR YELLOW; URINE GLUCOSE (UA) NEGATIVE (NEGATIVE); URINE KETONE NEGATIVE (NEGATIVE); URINE LEUK ESTERASE NEGATIVE (NEGATIVE); URINE NITRITE NEGATIVE (NEGATIVE); URINE PROTEIN NEGATIVE (NEGATIVE)
[2024-05-12] MEDS ORDERED: AZITHROMYCIN IVPB 500 MG/250 ML BAG IVPB ONE (05:06)
[2024-05-12] MEDS: AZITHROMYCIN IVPB 500 MG in DEXTROSE 5%-WATER - 250 ML IVPB ONE (05:11)
[2024-05-12] MEDS ORDERED: ACETAMINOPHEN 325 MG TABLET (FP) PO PRN (11:55)
[2024-05-12] MEDS ORDERED: CARBIDOPA/LEVODOPA 25/100 TABLET (FP) ONE (13:09)
[2024-05-12] MEDS: LACTATED RINGERS SOLUTION 1,000 ML/1,000 ML INFUS.BAG IV SCH (16:02)
[2024-05-12] MEDS: PIPERACILLIN/TAZOB 3.375 GM 50 ML IVPB SCH (18:30)
[2024-05-12] MEDS: lamoTRIgine 100 MG TABLET PO SCH (22:49)
[2024-05-12] MEDS: ATORVASTATIN CA 80 MG TABLET (FP) PO SCH (22:49)
[2024-05-12] MEDS: GABAPENTIN 300 MG CAPSULE PO SCH (22:49)
[2024-05-12] MEDS: LATANOPROST 0.005% OPHTH SOLN 2.5ML BOTTLE OD SCH (22:50)
[2024-05-12] MEDS: CARVEDILOL 12.5 MG TABLET (FP) PO SCH (22:52)
[2024-05-13 10:08] LABS: MCH 28.2 pg (25.7-33.7); MCHC 32.4 g/dl (32.0-35.9); MEAN CELL VOLUME 86.9 fl (80-96); MEAN PLT VOLUME 8.2 fl (7.5-11.1); PLATELET COUNT 131 10^3/uL (134-434); RBC 3.91 M/mm3 (4.00-5.60); RDW 18.4 % (11.9-15.9); WHITE BLOOD COUNT 7.5 K/mm3 (4.0-10.0)
[2024-05-13 10:26] LABS: POTASSIUM 3.6 mmol/L (3.5-5.1)
[2024-05-13 10:31] LABS: ALBUMIN 2.7 g/dl (3.4-5.0)
[2024-05-13 10:32] LABS: BLOOD UREA NITROGEN 14.5 mg/dL (7-18); CALCIUM 8.3 mg/dL (8.5-10.1)
[2024-05-13 10:36] LABS: CREATININE 0.8 mg/dL (0.55-1.3)
[2024-05-13 10:37] LABS: BILIRUBIN,TOTAL 1.2 mg/dL (0.2-1); TOT PROT 5.8 g/dl (6.4-8.2)
[2024-05-13] MEDS: ASPIRIN 81 MG CHEWABLE TABLETS PO SCH (10:57)
[2024-05-13] MEDS: PANTOPRAZOLE 40 MG TABLET PO SCH (10:57)
[2024-05-13] MEDS: amLODIPine BESYLATE 10 MG TABLET (FP) PO SCH (10:57)
[2024-05-15] MEDS: MAG HYDROX/ALH/SMC/DPHA/LIDO 240 ML MOUTHWASH MM SCH (17:03)
[2024-05-16 09:48] LABS: HEMATOCRIT 34.7 % (35.4-49); HEMOGLOBIN 11.4 GM/dL (11.7-16.9); MCH 28.1 pg (25.7-33.7); MCHC 32.7 g/dl (32.0-35.9); MEAN PLT VOLUME 8.2 fl (7.5-11.1); PLATELET COUNT 186 10^3/uL (134-434); RBC 4.04 M/mm3 (4.00-5.60); RDW 17.5 % (11.9-15.9); WHITE BLOOD COUNT 4.2 K/mm3 (4.0-10.0)
[2024-05-16 09:55] LABS: POTASSIUM 3.5 mmol/L (3.5-5.1)
[2024-05-16 09:58] LABS: CALCIUM 8.5 mg/dL (8.5-10.1)
[2024-05-16 09:59] LABS: ALBUMIN 2.9 g/dl (3.4-5.0)
[2024-05-16 10:02] LABS: CREATININE 0.8 mg/dL (0.55-1.3)
[2024-05-16 10:03] LABS: BILIRUBIN,TOTAL 1.1 mg/dL (0.2-1)
[2024-05-16 10:04] LABS: TOT PROT 6.5 g/dl (6.4-8.2)
[2024-05-16] MEDS: SODIUM CHLORIDE 1,000 ML IV SCH (10:32)
[2024-05-16 14:56] VITALS: BMI 30.1
[2024-05-16 16:59] LABS: EPI CELLS 25 /uL (0-25.1); HYALINE CASTS 1 /uL (0-3.1); URINE APPEARANCE CLEAR; URINE BACTERIA 3 /uL (0-1359); URINE BILIRUBIN NEGATIVE (NEGATIVE); URINE COLOR YELLOW; URINE GLUCOSE (UA) NEGATIVE (NEGATIVE); URINE KETONE NEGATIVE (NEGATIVE); URINE LEUK ESTERASE 1+ (NEGATIVE); URINE NITRITE NEGATIVE (NEGATIVE); URINE PROTEIN NEGATIVE (NEGATIVE); URINE RBC 12 /uL (0-23.9); URINE WBC 191 /uL (0-25.8)
[2024-05-16 22:08] LABS: BASO % 0.9 % (0-2.0); EOS % 7.8 % (0-4.5); HEMATOCRIT 35.2 % (35.4-49); HEMOGLOBIN 11.3 GM/dL (11.7-16.9); LYMPH % 28.9 % (8-40); MCH 27.9 pg (25.7-33.7); MCHC 32.2 g/dl (32.0-35.9); MEAN CELL VOLUME 86.5 fl (80-96); MEAN PLT VOLUME 8.3 fl (7.5-11.1); MONO % 6.3 % (3.8-10.2); NEUT % 56.1 % (42.8-82.8); PLATELET COUNT 187 10^3/uL (134-434); RBC 4.07 M/mm3 (4.00-5.60); WHITE BLOOD COUNT 4.5 K/mm3 (4.0-10.0)
[2024-05-16 22:11] LABS: INR 1.09 (0.83-1.09)
[2024-05-16 22:13] LABS: ACTIVATED PTT 31.3 SECONDS (25.2-36.5)
[2024-05-16 22:23] LABS: POTASSIUM 3.4 mmol/L (3.5-5.1)
[2024-05-16 22:25] LABS: ALBUMIN 2.8 g/dl (3.4-5.0); CALCIUM 8.6 mg/dL (8.5-10.1)
[2024-05-16 22:27] LABS: BLOOD UREA NITROGEN 6.4 mg/dL (7-18)
[2024-05-16 22:28] LABS: CREATININE 0.8 mg/dL (0.55-1.3)
[2024-05-16 22:30] LABS: TOT PROT 6.3 g/dl (6.4-8.2)
[2024-05-17] MEDS: POTASSIUM CHLORIDE ORAL LIQUID 20 MEQ/15 ML PO SCH (10:24)
[2024-05-18 01:29] VITALS: RESP 18
[2024-05-18 09:40] LABS: HEMATOCRIT 34.4 % (35.4-49); HEMOGLOBIN 11.2 GM/dL (11.7-16.9); MCH 28.1 pg (25.7-33.7); MCHC 32.4 g/dl (32.0-35.9); MEAN CELL VOLUME 86.8 fl (80-96); MEAN PLT VOLUME 8.3 fl (7.5-11.1); PLATELET COUNT 174 10^3/uL (134-434); RBC 3.97 M/mm3 (4.00-5.60); RDW 18.5 % (11.9-15.9); WHITE BLOOD COUNT 5.3 K/mm3 (4.0-10.0)
[2024-05-18 09:53] LABS: POTASSIUM 3.5 mmol/L (3.5-5.1)
[2024-05-18 09:56] LABS: ALBUMIN 2.8 g/dl (3.4-5.0); BLOOD UREA NITROGEN 8.4 mg/dL (7-18); CALCIUM 8.8 mg/dL (8.5-10.1)
[2024-05-18 10:00] LABS: CREATININE 0.9 mg/dL (0.55-1.3)
[2024-05-18 10:01] LABS: BILIRUBIN,TOTAL 0.9 mg/dL (0.2-1); TOT PROT 6.1 g/dl (6.4-8.2)
[2024-05-18] MEDS: FLUCONAZOLE 100 MG/NS 50 ML IVPB SCH (11:58)
[2024-05-18] MEDS: NYSTATIN 500,000 UNITS/5 ML SUSPENSION PO SCH (12:58)
[2024-05-18 15:12] VITALS: BP 134/63; PULSE 63; TEMP 98.8
== END 2024-05-18 17:48 | DRG 871 ==
LOC: JER 00:34 → JERBED 10:40 → J7W 22:33
PROVIDERS: ADMIT Family Medicine; ATTEND Family Medicine
DX: A41.9 Sepsis, unspecified organism (principal); G93.41 Metabolic encephalopathy; J69.0 Pneumonitis due to inhalation of food and vomit; I69.354 Hemiplegia and hemiparesis following cerebral infarction affecting left non-dominant side; I13.0 Hypertensive heart and chronic kidney disease with heart failure and stage 1 through stage 4 chronic kidney disease, or unspecified chronic kidney disease; G20.A1 Parkinson's disease without dyskinesia, without mention of fluctuations; E11.9 Type 2 diabetes mellitus without complications; F03.90 Unspecified dementia, unspecified severity, without behavioral disturbance, psychotic disturbance, mood disturbance, and anxiety; E03.9 Hypothyroidism, unspecified; G40.909 Epilepsy, unspecified, not intractable, without status epilepticus; E11.22 Type 2 diabetes mellitus with diabetic chronic kidney disease; N18.30 Chronic kidney disease, stage 3 unspecified
CPT/HCPCS: 0241U-QW; 36415; 70450-TC; 71045-TC-FY; 71250-TC; 76705-TC; 80053; 80061; 81003; 82550; 82803; 82962; 83036; 83605; 83735; 84484; 85025; 85027; 85610; 85730; 86850; 86900; 86901; 87040; 87086; 93005; 93010; 95816; 99285-25; J0131